=== PATIENT | female | born 1930 | race Two or more races ===

== ENCOUNTER 2016-07-09 14:31 | Inpatient (IN) | payer MEDICARE, OTHER ==
[~2016-07-09] VITALS: Ht 154.9 cm; Wt 87.1 kg
[~2016-07-09 14:31] MED LIST: CARVEDILOL12.5 MG ORAL; CEPHALEXIN500 MG ORAL; COREG12.5 MG ORAL; DIOVAN160 MG ORAL; FUROSEMIDE20 M1 ORAL; LACTULOSE10 GM/155 PO; LACTULOSE20 GM/301 ORAL; LYRICA25 MG ORAL; MIDODRINE HCL5 MG ORAL; Morphine Sulfate 2mg/ml Inj IVP ONE; NKM; PROTONIX40 MG ORAL; SIMVASTATIN20 MG ORAL; SPIRONOLACTONE25 MG ORAL; SPIRONOLACTONE50 MG ORAL; XIFAXAN550 MG ORAL
[2016-07-09 14:35] VITALS: BP 110/55
--- NOTE | 2016-07-09 14:44 | Emergency Room Report ---
History of Present Illness General Chief Complaint: Pain Source: Patient, Family Member, EMS Present Illness HPI The patient presents with 2 days of left leg pain. She says is constant and 7/ 10. It is burning pain. She denies having this before (though apparently, she was admitted for cellulitis recently). The patient has chronic liver disease and has swelling in her legs. Some mild shortness of breath and some cough. She denies any fevers. According to her daughter she had paracentesis done at [facility] yesterday. Hospitalized for several days with infection in leg and tx with antibiotics. Balance has been off. Fell few days ago and was too weak to get up. Not hit her head at that time. Ammonia has been elevated in past. Cough for few days. Non-productive. No dysuria. No diarrhea or melena. No vomiting or hematemesis. Nausea. Dizziness. Allergies: Coded Allergies: PENICILLINS (Unverified Allergy, Unknown, 07/09/16) Patient History Past Medical History: see triage record Social History: Denies: alcohol use, smoking Social History Narrative home Reviewed Nursing Documentation: PMH: Agreed, PSxH: Agreed Nursing Documentation-PMH Past Medical History: No History, Except For Hx Hypertension: Yes Hx Cancer: No Hx Gastrointestinal Problems: No Hx Neurological Problems: No Hx Neurologic Surgery: No Review of Systems All Other Systems: negative except mentioned in HPI Physical Exam Vital Signs Date Time Temp Pulse Resp B/P Pulse Ox O2 Delivery O2 Flow Rate FiO2 07/09/16 14:22 98.4 107 14 119/57 99 Room Air Sp02 EP Interpretation: reviewed, normal General Appearance: no apparent distress, GCS 15, Chronically Ill Head: normocephalic Eyes: bilateral eye PERRL, bilateral eye scleral icterus ENT: moist mucus membranes Neck: full range of motion, supple Respiratory: lungs clear, normal breath sounds Cardiovascular #1: regular rate, rhythm, edema - bilateral 2-3 + Cardiovascular #2: 2+ radial (R) Gastrointestinal: no mass, no guarding, no rebound, distended, other - fluid wave Musculoskeletal: back normal, normal range of motion, no calf tenderness, Ángel 's Sign negative, inflammation, swelling Neurologic: alert, oriented x3, motor strength/tone normal, DTRs symmetric, other - no asterixis Psychiatric: mood/affect normal - poor recent memory Skin: other - venous disease with some erythema L lower leg Medical Decision Making Diagnostic Impression: Primary Impression: Sepsis Qualified Codes: A41.9 - Sepsis, unspecified organism Additional Impressions: Cirrhosis Qualified Codes: K74.60 - Unspecified cirrhosis of liver Ascites Qualified Codes: R18.8 - Other ascites Cellulitis Qualified Codes: L03.116 - Cellulitis of left lower limb Coagulopathy Thrombocytopenia Hepatic encephalopathy ER Course Patient presents with fever with h/o cirrhosis and ascites, recent paracentesis and admission for cellulitis. Consider SBP, cellulitis, pneumonia, UTI amongst others. Emergent evaluation with labs, BC, lactate, CXR, ultrasound, venous dopplers. Treatment with antibiotics and gentle hydration. Some depressed mental state, but no asterixis - need to exclude encephalopathy, the fact she does not recall problems with leg suggests some cognitive dysfunction. Liver clinically compromised. Very complex patient. Elevated lactate. Need to give hydration, but total body fluid overloaded. VS stable (tachycardia). Antibiotics begun. Anemia. Admit tele Dr Edward. He examined the patient in the ED. Laboratory Tests Test 07/09/16 14:55 07/09/16 15:15 White Blood Count 5.4 K/UL (4.8-10.8) Red Blood Count 2.36 M/UL (4.20-5.40) L Hemoglobin 8.4 G/DL (12.0-16.0) L Hematocrit 26.8 % (37.0-47.0) L Mean Corpuscular Volume 113 FL (80-99) H Mean Corpuscular Hemoglobin 35.6 PG (27.0-31.0) H Mean Corpuscular Hemoglobin Concent 31.4 G/DL (32.0-36.0) L Red Cell Distribution Width 20.7 % (11.6-14.8) H Platelet Count 69 K/UL (150-450) L Mean Platelet Volume 11.1 FL (6.5-10.1) H Neutrophils (%) (Auto) % (45.0-75.0) Lymphocytes (%) (Auto) % (20.0-45.0) Monocytes (%) (Auto) % (1.0-10.0) Eosinophils (%) (Auto) % (0.0-3.0) Basophils (%) (Auto) % (0.0-2.0) Differential Total Cells Counted 100 Neutrophils % (Manual) 62 % (45-75) Lymphocytes % (Manual) 11 % (20-45) L Monocytes % (Manual) 20 % (1-10) H Eosinophils % (Manual) 5 % (0-3) H Basophils % (Manual) 2 % (0-2) Band Neutrophils 0 % (0-8) Platelet Estimate Decreased L Platelet Morphology Normal Polychromasia 2+ Hypochromasia 2+ Poikilocytosis 1+ Anisocytosis 3+ Macrocytosis 3+ Prothrombin Time 17.3 SEC (9.30-11.50) H Prothrombin Time INR 1.7 (0.9-1.1) H PTT 46 SEC (23-33) H Sodium Level 134 mEQ/L (135-145) L Potassium Level 4.8 mEQ/L (3.4-4.9) Chloride Level 97 mEQ/L (98-107) L Carbon Dioxide Level 20 mEQ/L (20-30) Anion Gap 17 (5-15) H Blood Urea Nitrogen 27 mg/dL (7-23) H Creatinine 1.1 mg/dL (0.5-0.9) H Estimate Glomerular Filtration Rate mL/min (>60) Glucose Level 133 mg/dL (74-106) H Lactic Acid Level 3.20 mmol/L (0.66-2.22) H Calcium Level 8.9 mg/dL (8.6-10.2) Total Bilirubin 5.3 mg/dL (0.0-1.2) H Direct Bilirubin 1.4 mg/dL (0.1-0.3) H Aspartate Amino Transferase (AST) 44 U/L (5-40) H Alanine Aminotransferase (ALT) 21 U/L (3-33) Alkaline Phosphatase 147 U/L (35-104) H Ammonia 66 umol/L (11-51) H Total Creatine Kinase 188 U/L (26-140) H Troponin I < 0.30 ng/mL (<=0.30) Pro-B-Type Natriuretic Peptide 613 pg/mL (0-450) H Total Protein 5.7 g/dL (6.6-8.7) L Albumin 3.8 g/dL (3.5-5.2) Globulin 1.9 g/dL Albumin/Globulin Ratio 2.0 (1.0-2.7) Urine Color Yellow Urine Appearance Clear Urine pH 5 (4.5-8.0) Urine Specific [place] 1.015 (1.005-1.035) Urine Protein Negative (NEGATIVE) Urine Glucose (UA) Negative (NEGATIVE) Urine Ketones Negative (NEGATIVE) Urine Occult Blood 1+ (NEGATIVE) H Urine Nitrite Negative (NEGATIVE) Urine Bilirubin Negative (NEGATIVE) Urine Urobilinogen Normal MG/DL (0.0-1.0) Urine Leukocyte Esterase 1+ (NEGATIVE) H Urine RBC 0-2 /HPF (0 - 2) Urine WBC 0 /HPF (0 - 2) Urine Squamous Epithelial Cells Few /LPF (NONE/OCC) Urine Bacteria Few /HPF (NONE) EKG Diagnostic Results Rate: tachycardiac ST Segments: no acute changes Rhythm Strip Diag. Results EP Interpretation: yes Rhythm: no PVC's, no ectopy, other - sinus tachycardia Chest X-Ray Diagnostic Results EP Interpretation: Yes Findings: no consolidation, no effusion, no pneumothorax, no acute cardiopulmonary disease, other - ascites Number of Views: 1 CT/MRI/US Diagnostic Results CT/MRI/US Diagnostic Results #1: Imaging Test Ordered: abd U/S Impression ascites and small liver CT/MRI/US Diagnostic Results #2: Imaging Test Ordered: DVT studies Impression no DVT Last Vital Signs Date Time Temp Pulse Resp B/P Pulse Ox O2 Delivery O2 Flow Rate FiO2 07/10/16 00:33 98.8 95 19 100/61 98 Room Air Status: improved Disposition: ADMITTED INPATIENT Condition: Serious Evan Lacy M.D. Jul 09, 2016 14:44
[2016-07-09 15:22] VITALS: BP 120/46
[2016-07-09 15:24] LABS: MEAN CORPUSCULAR HEMOGLOBIN 35.6 PG (27.0-31.0); MEAN CORPUSCULAR HGB CONC 31.4 G/DL (32.0-36.0); MEAN CORPUSCULAR VOLUME 113 FL (80-99); MEAN PLATELET VOLUME 11.1 FL (6.5-10.1); PLATELET COUNT 69 K/UL (150-450); RED BLOOD COUNT 2.36 M/UL (4.20-5.40); RED CELL DISTRIBUTION WIDTH 20.7 % (11.6-14.8); WHITE BLOOD COUNT 5.4 K/UL (4.8-10.8)
[2016-07-09 15:43] LABS: TROPONIN I < 0.30 ng/mL (<=0.30)
--- NOTE | 2016-07-09 15:43 | Diagnostic Imaging Report ---
Indication:Abdominal pain Technique: Grayscale and duplex Doppler imaging of the abdomen performed. Comparison: None Findings: The liver is heterogeneous and shows a coarsened echotexture with surface nodularity. There is moderate ascites. Portal vein is patent by Doppler examination. The spleen is borderline enlarged measuring between 12 and 13 cm. No abnormalities of either kidney identified. The gallbladder is not seen. CBD is 6 mm. There is no hydronephrosis. Impression: Chronic liver disease/cirrhosis. Ascites suggestive of portal hypertension. Borderline splenomegaly. Apparent cholecystectomy
[2016-07-09 15:46] LABS: ALANINE AMINOTRANSFERASE 21 U/L (3-33); ANION GAP 17 (5-15); ASPARTATE AMINO TRANSFERASE 44 U/L (5-40); CALCIUM 8.9 mg/dL (8.6-10.2); CARBON DIOXIDE 20 mEQ/L (20-30); CHLORIDE 97 mEQ/L (98-107); CREATININE 1.1 mg/dL (0.5-0.9); HEMOLYSIS 27; POTASSIUM 4.8 mEQ/L (3.4-4.9); SODIUM 134 mEQ/L (135-145); TOTAL PROTEIN 5.7 g/dL (6.6-8.7)
--- NOTE | 2016-07-09 15:47 | Diagnostic Imaging Report ---
Indication: Chest Pain Comparison: 07/23/15 A single view chest radiograph was obtained. Findings: No definite infiltrate or pulmonary vascular congestion identified. The heart is enlarged. The aorta is mildly enlarged consistent with atherosclerotic vascular disease. The bones are osteopenic. Impression: No acute disease
[2016-07-09 15:50] LABS: INR 1.7 (0.9-1.1); PROTHROMBIN TIME 17.3 SEC (9.30-11.50)
[2016-07-09 15:52] LABS: REFLEX LACTIC ACID YES OR NO YES
[2016-07-09 15:54] LABS: APPEARANCE,URINE CLEAR; KETONES,URINE NEGATIVE (NEGATIVE); LEUKOCYTE ESTERASE ,URINE 1+ (NEGATIVE); NITRITE,URINE NEGATIVE (NEGATIVE); PH,URINE 5 (4.5-8.0); PROTEIN,URINE NEGATIVE (NEGATIVE); UROBILINOGEN,URINE NORMAL MG/DL (0.0-1.0)
[2016-07-09] MEDS ORDERED: Vancomycin 1 GM in D5W 275 ML IVPB ONE (16:00)
[2016-07-09] MEDS ORDERED: metroNIDAZOLE 500mg 100 ML IVPB ONE (16:00)
[2016-07-09 16:07] LABS: BILIRUBIN,DIRECT 1.4 mg/dL (0.1-0.3)
[2016-07-09 16:07] LABS: RBC,URINE 0-2 /HPF (0 - 2); WBC,URINE 0 /HPF (0 - 2)
[2016-07-09 16:08] LABS: BACTERIA,URINE FEW /HPF; SQUAMOUS EPITHELIAL CELL,UR FEW /LPF (NONE/OCC)
[2016-07-09 16:23] LABS: BASOPHILS % (MANUAL) 2 % (0-2); EOSINOPHILS % (MANUAL) 5 % (0-3); LYMPHOCYTES % (MANUAL) 11 % (20-45); NEUTROPHILS % (MANUAL) 62 % (45-75); TOTAL CELLS COUNTED 100
[2016-07-09 16:24] LABS: ANISOCYTOSIS 3+; HYPOCHROMASIA 2+; MACROCYTES 3+; PLATELET MORPHOLOGY NORMAL; POIKILOCYTOSIS 1+; POLYCHROMASIA 2+
[2016-07-09 16:25] LABS: BAND NEUTROPHILS % (MANUAL) 0 % (0-8); PLATELET ESTIMATE DECREASED
[2016-07-09] MEDS ORDERED: Phytonadione 10 mg/mL 1ml amp ONE (17:10)
[2016-07-09] MEDS ORDERED: Phytonadione 10 mg/mL 1ml amp SUBQ STA (17:27)
[2016-07-09] MEDS ORDERED: Vancomycin 1gm inj IVPB ONE (17:39)
[2016-07-09 18:54] VITALS: BP 103/56
--- NOTE | 2016-07-09 22:30 | History and Physical Report ---
DATE OF ADMISSION: 07/09/2016 CHIEF COMPLAINT AND REASON FOR HOSPITALIZATION: Tachycardia, leg pain, cellulitis, and history of cirrhosis. 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 She had a paracentesis, but no evidence of infection. She has chronic ascites and hepatic encephalopathy. Mental status has been preserved. Apparently, the family called the paramedics because of leg pain and she was tachycardic and clinically septic, seen in the ER. Given fluids, resuscitation, and antibiotics. ALLERGIES: None known. MEDICATIONS: At home include carvedilol, Lasix, lactulose, midodrine, Protonix, Lyrica, rifaximin, Zocor, spironolactone, and lactulose. HABITS: She is a nondrinker and nonsmoker. No use of illicit drugs. SYSTEM REVIEW: HEENT: Head, eyes, ears, nose, and throat, the vision and hearing are well preserved. PULMONARY: No asthma or TB. CARDIAC: History of leg edema, but no definite congestive heart failure. History of hypertension. GASTROINTESTINAL: No gastrointestinal bleeding or ulcers as far as I know, but she has been on Protonix. GENITOURINARY: Denies dysuria. NEUROLOGIC: History of hepatic encephalopathy. No strokes. MUSCULOSKELETAL: History of prior surgeries, bilateral total knee surgeries. PHYSICAL EXAMINATION: GENERAL: The patient is seen in the emergency department. She is alert lady, in mild distress. VITAL SIGNS: Temperature 98.4, pulse 106, respirations 17, blood pressure 120/46, and pulse oximetry 94% on room air. HEENT: Head, eyes, ears, nose, and throat, sclerae are nonicteric. Ocular motions intact in all directions. Oral mucosa moist. NECK: No adenopathy or thyroid enlargement. LUNGS: Clear. HEART: Regular rhythm and tachycardic. No murmur. ABDOMEN: Shows soft ascites. I am unable to feel liver or spleen . EXTREMITIES: Show 1+ edema. There is hyperpigmented legs and erythema and cellulitis of both legs. There is clean total knee incisions. PERTINENT LABORATORIES: White count 5.4, hemoglobin 8.4, hematocrit 26.8, and platelets 113,000. Sodium 134, potassium 4.8, chloride 97, CO2 20, BUN 27, creatinine 1.1, and glucose 133. Lactic acid is 3.2. Bilirubin is 1.4. IMPRESSION: 1. Systemic inflammatory response syndrome with tachycardia and possible early sepsis. 2. Cellulitis of the legs. 3. Cirrhosis. 4. History of hepatic encephalopathy. 5. Ascites. 6. Anemia. 7. Thrombocytopenia. 8. History of hypertension. 9. History of hyperlipidemia. PLAN: The patient will be placed on vancomycin and Gram-negative coverage pending cultures. We will watch her closely in view of her underlying comorbidities. Awais Edward M.D. DR: [place] JOB#: [id number] CC:
[2016-07-10 00:33] VITALS: BP 100/61
[2016-07-10 04:19] VITALS: BP 107/45
[2016-07-10 08:36] VITALS: BP 92/49
[2016-07-10 08:36] LABS: MEAN CORPUSCULAR HEMOGLOBIN 35.9 PG (27.0-31.0); MEAN CORPUSCULAR HGB CONC 31.7 G/DL (32.0-36.0); MEAN CORPUSCULAR VOLUME 113 FL (80-99); MEAN PLATELET VOLUME 7.1 FL (6.5-10.1); PLATELET COUNT 46 K/UL (150-450); RED BLOOD COUNT 2.02 M/UL (4.20-5.40); RED CELL DISTRIBUTION WIDTH 19.9 % (11.6-14.8); WHITE BLOOD COUNT 4.6 K/UL (4.8-10.8)
[2016-07-10 08:49] LABS: INR 1.7 (0.9-1.1); PROTHROMBIN TIME 18.1 SEC (9.30-11.50)
[2016-07-10] MEDS ORDERED: Carvedilol 12.5mg tab ORAL SCH ×2 (09:00→21:00)
[2016-07-10] MEDS ORDERED: Spironolactone 25mg tab ORAL SCH (09:00)
[2016-07-10] MEDS: Lactulose 10gm/15ml UDC ORAL SCH ×3 (09:00→18:42)
[2016-07-10] MEDS ORDERED: Heparin 5000 units/ml inj SUBQ SCH (09:00)
[2016-07-10] MEDS ORDERED: Furosemide 40mg tab ORAL SCH (09:00)
[2016-07-10 09:12] LABS: ALANINE AMINOTRANSFERASE 18 U/L (3-33); ALBUMIN/GLOBULIN RATIO 1.5 (1.0-2.7); ANION GAP 12 (5-15); ASPARTATE AMINO TRANSFERASE 31 U/L (5-40); CALCIUM 8.1 mg/dL (8.6-10.2); CARBON DIOXIDE 23 mEQ/L (20-30); CHLORIDE 102 mEQ/L (98-107); CREATININE 1.1 mg/dL (0.5-0.9); HEMOLYSIS 4; POTASSIUM 5.2 mEQ/L (3.4-4.9); SODIUM 137 mEQ/L (135-145)
[2016-07-10 09:27] LABS: BILIRUBIN,DIRECT 1.3 mg/dL (0.1-0.3)
[2016-07-10] MEDS: Triamcinolone 0.1% 15gm Cr TOPIC SCH ×2 (09:44→18:43)
[2016-07-10] MEDS: Rifaximin 550mg tab ORAL SCH ×2 (09:45→21:46)
[2016-07-10 10:28] LABS: ANISOCYTOSIS 1+; BAND NEUTROPHILS % (MANUAL) 0 % (0-8); BASOPHILS % (MANUAL) 0 % (0-2); EOSINOPHILS % (MANUAL) 1 % (0-3); HYPOCHROMASIA 1+; LYMPHOCYTES % (MANUAL) 23 % (20-45); MACROCYTES 1+; NEUTROPHILS % (MANUAL) 65 % (45-75); PLATELET ESTIMATE DECREASED; PLATELET MORPHOLOGY NORMAL; TOTAL CELLS COUNTED 100
[2016-07-10 11:42] VITALS: BP 104/44
--- NOTE | 2016-07-10 13:50 | Cardiology Report ---
APPROVED REPORT EKG Measurement Heart [id number] Sinus tachycardia Anteroseptal infarct, age undetermined Abnormal ECG
[2016-07-10 16:00] VITALS: BP 80/30
[2016-07-10] MEDS ORDERED: Vancomycin 750mg/D5W 275ml IVPB SCH ×2 (18:00)
[2016-07-10 20:00] VITALS: BP 88/47
--- NOTE | 2016-07-10 20:22 | General Progress Note ---
Assessment/Plan Problem List: (1) Anemia ICD Codes: D64.9 - Anemia, unspecified SNOMED: 630279210 (2) Cirrhosis ICD Codes: K74.60 - Unspecified cirrhosis of liver SNOMED: 10288547 (3) Thrombocytopenia ICD Codes: D69.6 - Thrombocytopenia SNOMED: 494903567 (4) Ascites ICD Codes: R18.8 - Other ascites SNOMED: 620442794 (5) Cellulitis ICD Codes: L03.90 - Cellulitis, unspecified SNOMED: 647247813 Assessment/Plan patient and daughter consent to transfuse, continue vanco for cellulitis, lasix for fluid overload Subjective Constitutional: Reports: weakness HEENT: Reports: no symptoms Cardiovascular: Reports: no symptoms Respiratory: Reports: no symptoms Gastrointestinal/Abdominal: Reports: no symptoms Genitourinary: Reports: no symptoms Neurologic/Psychiatric: Reports: no symptoms Endocrine: Reports: no symptoms Allergies: Coded Allergies: PENICILLINS (Unverified Allergy, Unknown, 07/09/16) Subjective leg pain and difficult to walk Objective Last 24 Hour Vital Signs Date Time Temp Pulse Resp B/P Pulse Ox O2 Delivery O2 Flow Rate FiO2 07/10/16 20:00 97.6 63 21 88/47 97 Nasal Cannula 2.0 07/10/16 16:00 97.8 73 21 80/30 99 Nasal Cannula 2.0 07/10/16 12:00 75 07/10/16 11:42 97.3 84 20 104/44 95 Room Air 07/10/16 09:45 90 92/49 07/10/16 08:36 97.9 90 18 92/49 95 Room Air 07/10/16 08:00 89 07/10/16 04:19 98.4 91 18 107/45 93 Room Air 07/10/16 04:00 91 07/10/16 00:33 98.8 95 19 100/61 98 Room Air 07/10/16 00:00 94 Intake and Output 07/09/16 07/10/16 18:59 06:59 Output Total 500 ml 1150 ml Balance -500 ml -1150 ml Output Urine Total 500 ml 1150 ml # Voids 1 Laboratory Tests 07/10/16 07:40: White Blood Count 4.6L, Red Blood Count 2.02L, Hemoglobin 7.2L, Hematocrit 22.8L , Mean Corpuscular Volume 113H, Mean Corpuscular Hemoglobin 35.9H, Mean Corpuscular Hemoglobin Concent 31.7L, Red Cell Distribution Width 19.9H, Platelet Count 46L, Mean Platelet Volume 7.1, Neutrophils (%) (Auto) , Lymphocytes (%) (Auto) , Monocytes (%) (Auto) , Eosinophils (%) (Auto) , Basophils (%) (Auto) , Differential Total Cells Counted 100, Neutrophils % ( Manual) 65, Lymphocytes % (Manual) 23, Monocytes % (Manual) 11H, Eosinophils % ( Manual) 1, Basophils % (Manual) 0, Band Neutrophils 0, Platelet Estimate DecreasedL, Platelet Morphology Normal, Hypochromasia 1+, Anisocytosis 1+, Macrocytosis 1+, Prothrombin Time 18.1H, Prothromb Time International Ratio 1.7H , Activated Partial Thromboplast Time 56H, Sodium Level 137, Potassium Level 5.2H, Chloride Level 102, Carbon Dioxide Level 23, Anion Gap 12, Blood Urea Nitrogen 27H, Creatinine 1.1H, Estimat Glomerular Filtration Rate , Glucose Level 82, Calcium Level 8.1L, Total Bilirubin 5.4H, Direct Bilirubin 1.3H, Aspartate Amino Transf (AST/SGOT) 31, Alanine Aminotransferase (ALT/SGPT) 18, Alkaline Phosphatase 119H, Ammonia 107H, Total Protein 5.0L, Albumin 3.0L, Globulin 2.0, Albumin/Globulin Ratio 1.5 Height (Feet): 5 Height (Inches): 1.00 Weight (Pounds): 192 General Appearance: no apparent distress, obese EENT: normal ENT inspection Neck: normal alignment Cardiovascular: normal rate Respiratory/Chest: lungs clear Abdomen: non tender, other - soft ascites Edema: moderate edema 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
[2016-07-11] VITALS: BP 85/42
[2016-07-11 04:00] VITALS: BP 84/40
[2016-07-11 07:04] LABS: MEAN CORPUSCULAR HEMOGLOBIN 34.3 PG (27.0-31.0); MEAN CORPUSCULAR HGB CONC 32.4 G/DL (32.0-36.0); MEAN CORPUSCULAR VOLUME 106 FL (80-99); MEAN PLATELET VOLUME 11.3 FL (6.5-10.1); PLATELET COUNT 43 K/UL (150-450); RED BLOOD COUNT 2.46 M/UL (4.20-5.40); RED CELL DISTRIBUTION WIDTH 22.4 % (11.6-14.8); WHITE BLOOD COUNT 4.2 K/UL (4.8-10.8)
[2016-07-11 07:14] LABS: ANION GAP 14 (5-15); CARBON DIOXIDE 21 mEQ/L (20-30); CHLORIDE 100 mEQ/L (98-107); CREATININE 1.6 mg/dL (0.5-0.9); HEMOLYSIS 4; POTASSIUM 5.4 mEQ/L (3.4-4.9); SODIUM 135 mEQ/L (135-145)
[2016-07-11 08:00] VITALS: BP 94/40
[2016-07-11] MEDS: Carvedilol 12.5mg tab ORAL SCH ×2 (09:00→20:45)
[2016-07-11] MEDS ORDERED: Furosemide 40mg tab ORAL SCH (09:00)
[2016-07-11] MEDS ORDERED: Spironolactone 25mg tab ORAL SCH (09:00)
[2016-07-11] MEDS: Rifaximin 550mg tab ORAL SCH ×2 (09:26→20:51)
[2016-07-11] MEDS: Lactulose 10gm/15ml UDC ORAL SCH ×3 (09:27→18:52)
[2016-07-11] MEDS: Triamcinolone 0.1% 15gm Cr TOPIC SCH ×2 (09:30→18:00)
[2016-07-11] MEDS ORDERED: NS 275ml ONE (10:22)
[2016-07-11 10:35] LABS: ANISOCYTOSIS 2+; BAND NEUTROPHILS % (MANUAL) 0 % (0-8); BASOPHILS % (MANUAL) 0 % (0-2); EOSINOPHILS % (MANUAL) 2 % (0-3); LYMPHOCYTES % (MANUAL) 30 % (20-45); NEUTROPHILS % (MANUAL) 67 % (45-75); PLATELET ESTIMATE DECREASED; PLATELET MORPHOLOGY NORMAL; TOTAL CELLS COUNTED 100
[2016-07-11 10:36] LABS: HYPOCHROMASIA 2+; MACROCYTES 2+; OVALOCYTES 1+
[2016-07-11 12:00] VITALS: BP 86/30
--- NOTE | 2016-07-11 15:30 | General Progress Note ---
Assessment/Plan Problem List: (1) Anemia ICD Codes: D64.9 - Anemia, unspecified SNOMED: 253980237 Qualifiers: (2) Cirrhosis ICD Codes: K74.60 - Unspecified cirrhosis of liver SNOMED: 04420570 Qualifiers: Qualified Codes: K74.69 - Other cirrhosis of liver (3) Thrombocytopenia ICD Codes: D69.6 - Thrombocytopenia SNOMED: 150389891 (4) Ascites ICD Codes: R18.8 - Other ascites SNOMED: 347467618 Qualifiers: Qualified Codes: R18.8 - Other ascites (5) Cellulitis ICD Codes: L03.90 - Cellulitis, unspecified SNOMED: 400857609 Qualifiers: Qualified Codes: L03.116 - Cellulitis of left lower limb Assessment/Plan patient and daughter consent to transfuse, done, continue vanco for cellulitis, lasix for fluid overload 3/3 increase bun and creat and K 3/4 stop lasix and spironolactone, PT gait train Subjective Constitutional: Reports: weakness Cardiovascular: Reports: no symptoms Genitourinary: Reports: no symptoms Neurologic/Psychiatric: Reports: pre-existing deficit Endocrine: Reports: no symptoms Hematologic/Lymphatic: Reports: anemia Allergies: Coded Allergies: PENICILLINS (Unverified Allergy, Unknown, 07/09/16) Subjective leg pain and difficult to walk Objective Last 24 Hour Vital Signs Date Time Temp Pulse Resp B/P Pulse Ox O2 Delivery O2 Flow Rate FiO2 07/11/16 12:00 97.7 72 19 86/30 97 07/11/16 09:00 62 94/40 07/11/16 08:00 97.3 18 94/40 97 Nasal Cannula 2.0 07/11/16 04:00 97.3 62 18 84/40 95 Nasal Cannula 2.0 07/11/16 00:00 97.7 61 20 85/42 99 Nasal Cannula 2.0 07/10/16 21:00 63 88/47 07/10/16 20:00 97.6 63 21 88/47 97 Nasal Cannula 2.0 07/10/16 16:00 65 07/10/16 16:00 97.8 73 21 80/30 99 Nasal Cannula 2.0 Intake and Output 07/10/16 07/11/16 19:00 07:00 Intake Total 120 ml Output Total 300 ml Balance -180 ml Intake Oral 120 ml Output Urine Total 300 ml # Voids 1 Laboratory Tests 07/11/16 04:45: White Blood Count 4.2L, Red Blood Count 2.46L, Hemoglobin 8.4L, Hematocrit 26.0L , Mean Corpuscular Volume 106H, Mean Corpuscular Hemoglobin 34.3H, Mean Corpuscular Hemoglobin Concent 32.4, Red Cell Distribution Width 22.4H, Platelet Count 43L, Mean Platelet Volume 11.3H, Neutrophils (%) (Auto) , Lymphocytes (%) (Auto) , Monocytes (%) (Auto) , Eosinophils (%) (Auto) , Basophils (%) (Auto) , Differential Total Cells Counted 100, Neutrophils % ( Manual) 67, Lymphocytes % (Manual) 30, Monocytes % (Manual) 1, Eosinophils % ( Manual) 2, Basophils % (Manual) 0, Band Neutrophils 0, Platelet Estimate DecreasedL, Platelet Morphology Normal, Hypochromasia 2+, Anisocytosis 2+, Macrocytosis 2+, Ovalocytes 1+, Sodium Level 135, Potassium Level 5.4H, Chloride Level 100, Carbon Dioxide Level 21, Anion Gap 14, Blood Urea Nitrogen 35H, Creatinine 1.6H, Estimat Glomerular Filtration Rate , Glucose Level 88, Calcium Level 8.0L Height (Feet): 5 Height (Inches): 1.00 Weight (Pounds): 192 General Appearance: no apparent distress, obese EENT: PERRL/EOMI Neck: normal alignment Cardiovascular: normal rate, regular rhythm Respiratory/Chest: lungs clear Abdomen: non tender, soft Edema: moderate edema Neurologic: telehealth case manager II-XII grossly normal Skin: other - cellulitis legs ROBERTA NORWOOD Jul 11, 2016 15:30
[2016-07-11 16:00] VITALS: BP 83/31
[2016-07-11] MEDS ORDERED: Vancomycin 750 MG in D5W 275 ML IVPB SCH (18:00)
[2016-07-11 20:00] VITALS: BP 88/42
[2016-07-12] VITALS: BP 81/44
[2016-07-12 04:00] VITALS: BP 88/35
[2016-07-12 08:03] LABS: MEAN CORPUSCULAR HEMOGLOBIN 34.9 PG (27.0-31.0); MEAN CORPUSCULAR HGB CONC 32.4 G/DL (32.0-36.0); MEAN CORPUSCULAR VOLUME 108 FL (80-99); MEAN PLATELET VOLUME 9.9 FL (6.5-10.1); PLATELET COUNT 40 K/UL (150-450); RED CELL DISTRIBUTION WIDTH 21.8 % (11.6-14.8); WHITE BLOOD COUNT 5.2 K/UL (4.8-10.8)
[2016-07-12 08:07] LABS: ANION GAP 11 (5-15); CARBON DIOXIDE 22 mEQ/L (20-30); CHLORIDE 102 mEQ/L (98-107); CREATININE 1.6 mg/dL (0.5-0.9); HEMOLYSIS 4; POTASSIUM 5.5 mEQ/L (3.4-4.9); SODIUM 135 mEQ/L (135-145)
[2016-07-12 08:15] VITALS: BP 92/45
[2016-07-12] MEDS: Carvedilol 12.5mg tab ORAL SCH ×2 (09:00→21:00)
[2016-07-12] MEDS: Triamcinolone 0.1% 15gm Cr TOPIC SCH ×2 (10:23→18:30)
[2016-07-12] MEDS: Lactulose 10gm/15ml UDC ORAL SCH ×3 (10:23→18:30)
[2016-07-12] MEDS: Rifaximin 550mg tab ORAL SCH ×2 (10:23→22:10)
[2016-07-12 10:56] LABS: ANISOCYTOSIS 3+; BAND NEUTROPHILS % (MANUAL) 0 % (0-8); BASOPHILS % (MANUAL) 1 % (0-2); EOSINOPHILS % (MANUAL) 6 % (0-3); HYPOCHROMASIA 2+; LYMPHOCYTES % (MANUAL) 10 % (20-45); MACROCYTES 1+; NEUTROPHILS % (MANUAL) 67 % (45-75); PLATELET ESTIMATE DECREASED; PLATELET MORPHOLOGY NORMAL; TOTAL CELLS COUNTED 100
[2016-07-12] MEDS ORDERED: Tubing IV Secondary IV ONE (11:05)
[2016-07-12] MEDS ORDERED: NS 275ml ONE (11:05)
[2016-07-12 12:15] VITALS: BP 106/67
--- NOTE | 2016-07-12 13:37 | General Progress Note ---
Assessment/Plan Assessment/Plan 1) Analilia 2) Cirrhosis of liver 3) Satsis dermatitis 4) Fluid overload Plan: Will give Bumex 2 mg IV Check vanco level Subjective Allergies: Coded Allergies: PENICILLINS (Unverified Allergy, Unknown, 07/09/16) All Systems: reviewed and negative except above Subjective She is more sob, still on O2, no c/p, creat is 1.6, K is 5.5 Objective Last 24 Hour Vital Signs Date Time Temp Pulse Resp B/P Pulse Ox O2 Delivery O2 Flow Rate FiO2 07/12/16 12:15 97.9 66 21 106/67 95 Nasal Cannula 2.0 07/12/16 09:00 69 92/45 07/12/16 08:15 97.7 69 20 92/45 96 Nasal Cannula 2.0 07/12/16 04:00 97.9 70 20 88/35 98 Nasal Cannula 2.0 07/12/16 00:00 97.7 67 22 81/44 97 Nasal Cannula 2.0 07/11/16 20:00 98.1 67 22 88/42 96 Nasal Cannula 2.0 07/11/16 16:00 97.9 64 19 83/31 95 Nasal Cannula 2.0 Intake and Output 07/11/16 07/12/16 19:00 07:00 Intake Total 400 ml 50 ml Balance 400 ml 50 ml Intake Oral 400 ml 50 ml # Voids 1 # Bowel Movements 2 Laboratory Tests 07/12/16 05:40: White Blood Count 5.2, Red Blood Count 2.60L, Hemoglobin 9.1L, Hematocrit 28.1L , Mean Corpuscular Volume 108H, Mean Corpuscular Hemoglobin 34.9H, Mean Corpuscular Hemoglobin Concent 32.4, Red Cell Distribution Width 21.8H, Platelet Count 40L, Mean Platelet Volume 9.9, Neutrophils (%) (Auto) , Lymphocytes (%) (Auto) , Monocytes (%) (Auto) , Eosinophils (%) (Auto) , Basophils (%) (Auto) , Differential Total Cells Counted 100, Neutrophils % ( Manual) 67, Lymphocytes % (Manual) 10L, Monocytes % (Manual) 16H, Eosinophils % (Manual) 6H, Basophils % (Manual) 1, Band Neutrophils 0, Platelet Estimate DecreasedL, Platelet Morphology Normal, Hypochromasia 2+, Anisocytosis 3+, Macrocytosis 1+, Sodium Level 135, Potassium Level 5.5H, Chloride Level 102, Carbon Dioxide Level 22, Anion Gap 11, Blood Urea Nitrogen 37H, Creatinine 1.6H , Estimat Glomerular Filtration Rate , Glucose Level 90, Calcium Level 8.0L Height (Feet): 5 Height (Inches): 1.00 Weight (Pounds): 192 General Appearance: WD/WN, no apparent distress EENT: PERRL/EOMI Neck: non-tender Cardiovascular: normal rate, regular rhythm, JVD - high Respiratory/Chest: crackles/rales Abdomen: normal bowel sounds, non tender Edema: moderate edema Skin: other - discolored RAMA GRIFFIN Jul 12, 2016 13:37
[2016-07-12] MEDS ORDERED: Bumetanide 2.5mg/10ml Inj IVP ONE (14:00)
[2016-07-12 16:03] VITALS: BP 97/51
[2016-07-12] MEDS: Vancomycin 1.25 GM in D5W 275 ML IVPB SCH (18:31)
[2016-07-12 20:00] VITALS: BP 92/41
[2016-07-13] VITALS: BP 101/41
[2016-07-13 04:00] VITALS: BP 99/50
[2016-07-13 08:05] LABS: OTHERS PATHOLOGIST COMMENT
[2016-07-13 08:08] VITALS: BP 100/52
[2016-07-13] MEDS: Lactulose 10gm/15ml UDC ORAL SCH ×3 (09:00→18:24)
[2016-07-13] MEDS: Carvedilol 12.5mg tab ORAL SCH ×2 (09:00→21:00)
[2016-07-13] MEDS: Rifaximin 550mg tab ORAL SCH ×2 (09:29→21:14)
[2016-07-13] MEDS: Triamcinolone 0.1% 15gm Cr TOPIC SCH ×2 (09:36→18:23)
[2016-07-13 11:24] VITALS: BP 97/50
--- NOTE | 2016-07-13 14:16 | General Progress Note ---
Assessment/Plan Assessment/Plan 1) Analilia 2) Cirrhosis of liver 3) Satsis dermatitis 4) Fluid overload Plan: labs tomorrow Lactulose 20 gram po TID Get Physical RX Subjective Allergies: Coded Allergies: PENICILLINS (Unverified Allergy, Unknown, 07/09/16) Subjective She is less sob, she had good diuresis yesterday, no c/p, no labs, vanco level was 11.4, some vomiting today Objective Last 24 Hour Vital Signs Date Time Temp Pulse Resp B/P Pulse Ox O2 Delivery O2 Flow Rate FiO2 07/13/16 11:24 97.6 57 20 97/50 99 Nasal Cannula 2.0 07/13/16 09:00 62 100/52 07/13/16 08:08 97.9 62 20 100/52 95 Nasal Cannula 2.0 07/13/16 04:00 97.7 65 20 99/50 97 Nasal Cannula 2.0 07/13/16 00:00 97.0 97 20 101/41 98 Nasal Cannula 2.0 07/13/16 00:00 97.0 67 20 101/41 98 Nasal Cannula 2.0 07/12/16 21:00 69 92/41 07/12/16 20:00 97.5 69 20 92/41 92 Room Air 2.0 07/12/16 16:03 97.6 65 15 97/51 97 Room Air Intake and Output 07/12/16 07/13/16 19:00 07:00 Intake Total 780 ml 395 ml Balance 780 ml 395 ml Intake Oral 780 ml 120 ml IV Total 275 ml # Voids 2 5 Laboratory Tests 07/12/16 14:45: Vancomycin Level Trough 11.4 Height (Feet): 5 Height (Inches): 1.00 Weight (Pounds): 192 General Appearance: WD/WN, no apparent distress EENT: PERRL/EOMI Neck: non-tender Cardiovascular: normal peripheral pulses, normal rate, JVD - high Respiratory/Chest: chest wall non-tender, lungs clear Abdomen: normal bowel sounds, non tender Edema: moderate edema Neurologic: tour leader II-XII grossly normal RAMA GRIFFIN Jul 13, 2016 14:16
[2016-07-13 16:00] VITALS: BP 96/35
[2016-07-13] MEDS: Vancomycin 1.25 GM in D5W 275 ML IVPB SCH (18:24)
[2016-07-13 19:00] VITALS: BP 109/56
[2016-07-14] VITALS: BP 83/49
[2016-07-14 04:00] VITALS: BP 110/40
[2016-07-14 07:10] LABS: ANION GAP 12 (5-15); CALCIUM 8.5 mg/dL (8.6-10.2); CARBON DIOXIDE 25 mEQ/L (20-30); CHLORIDE 100 mEQ/L (98-107); CREATININE 1.2 mg/dL (0.5-0.9); HEMOLYSIS 5; POTASSIUM 4.9 mEQ/L (3.4-4.9); SODIUM 137 mEQ/L (135-145)
[2016-07-14 07:27] LABS: MEAN CORPUSCULAR HEMOGLOBIN 34.9 PG (27.0-31.0); MEAN CORPUSCULAR HGB CONC 32.5 G/DL (32.0-36.0); MEAN CORPUSCULAR VOLUME 107 FL (80-99); MEAN PLATELET VOLUME 7.7 FL (6.5-10.1); PLATELET COUNT 45 K/UL (150-450); RED BLOOD COUNT 2.96 M/UL (4.20-5.40); RED CELL DISTRIBUTION WIDTH 21.1 % (11.6-14.8); WHITE BLOOD COUNT 5.6 K/UL (4.8-10.8)
[2016-07-14] MEDS: Lactulose 10gm/15ml UDC ORAL SCH ×2 (08:14→13:56)
[2016-07-14] MEDS: Carvedilol 12.5mg tab ORAL SCH (08:16)
[2016-07-14] MEDS: Rifaximin 550mg tab ORAL SCH (08:16)
[2016-07-14 08:21] VITALS: BP 93/41
[2016-07-14 09:08] LABS: BAND NEUTROPHILS % (MANUAL) 0 % (0-8); BASOPHILS % (MANUAL) 1 % (0-2); EOSINOPHILS % (MANUAL) 3 % (0-3); LYMPHOCYTES % (MANUAL) 13 % (20-45); NEUTROPHILS % (MANUAL) 73 % (45-75); PLATELET ESTIMATE DECREASED; PLATELET MORPHOLOGY NORMAL; TOTAL CELLS COUNTED 100
[2016-07-14 09:09] LABS: ANISOCYTOSIS 3+; HYPOCHROMASIA 1+; MACROCYTES 1+
[2016-07-14] MEDS: Triamcinolone 0.1% 15gm Cr TOPIC SCH (11:27)
[2016-07-14 12:00] VITALS: BP 95/47
--- NOTE | 2016-07-14 12:05 | Diagnostic Imaging Report ---
APPROVED REPORT CPT Code: 08638 Present Symptoms Lower Extremity Edema: Bilateral Comments: Technically difficult study due to edema BILATERAL: Imaging reveals a patent deep venous system bilaterally. There is no evidence of thrombus within the femoral, popliteal or tibial segments. The greater saphenous veins are also within normal limits. Doppler indicates normal spontaneous flow within these segments.
--- NOTE | 2016-07-14 14:56 | General Progress Note ---
Assessment/Plan Assessment/Plan 1) Analilia improved 2) Cirrhosis of liver 3) Satsis dermatitis + cellulitis 4) Fluid overload Plan: Will discharge home today Keflex 500 mg po bid x 7 more day #[id number] Subjective Allergies: Coded Allergies: PENICILLINS (Unverified Allergy, Unknown, 07/09/16) Subjective She is doing much better, no c/p or sob, the leg erythema is better, creat is down to 1.2 Objective Last 24 Hour Vital Signs Date Time Temp Pulse Resp B/P Pulse Ox O2 Delivery O2 Flow Rate FiO2 07/14/16 12:00 97.7 63 18 95/47 97 Nasal Cannula 2.0 07/14/16 08:21 98.2 68 15 93/41 96 Nasal Cannula 07/14/16 08:16 69 93/41 07/14/16 04:00 97.8 66 20 110/40 96 Nasal Cannula 2.0 07/14/16 00:00 97.7 60 20 83/49 94 Room Air 07/13/16 19:00 96.8 64 20 109/56 100 Nasal Cannula 2.0 07/13/16 16:00 96.8 58 20 96/35 99 Nasal Cannula 2.0 Intake and Output 07/13/16 07/14/16 19:00 07:00 Intake Total 400 ml 515 ml Output Total 170 ml Balance 230 ml 515 ml Intake Oral 400 ml 240 ml IV Total 275 ml Output Urine Total 120 ml Emesis 50 ml # Voids 2 4 # Bowel Movements 2 Laboratory Tests 07/14/16 06:05: White Blood Count 5.6, Red Blood Count 2.96L, Hemoglobin 10.4L, Hematocrit 31.8L , Mean Corpuscular Volume 107H, Mean Corpuscular Hemoglobin 34.9H, Mean Corpuscular Hemoglobin Concent 32.5, Red Cell Distribution Width 21.1H, Platelet Count 45L, Mean Platelet Volume 7.7, Neutrophils (%) (Auto) , Lymphocytes (%) (Auto) , Monocytes (%) (Auto) , Eosinophils (%) (Auto) , Basophils (%) (Auto) , Differential Total Cells Counted 100, Neutrophils % ( Manual) 73, Lymphocytes % (Manual) 13L, Monocytes % (Manual) 10, Eosinophils % ( Manual) 3, Basophils % (Manual) 1, Band Neutrophils 0, Platelet Estimate DecreasedL, Platelet Morphology Normal, Hypochromasia 1+, Anisocytosis 3+, Macrocytosis 1+, Sodium Level 137, Potassium Level 4.9, Chloride Level 100, Carbon Dioxide Level 25, Anion Gap 12, Blood Urea Nitrogen 34H, Creatinine 1.2H , Estimat Glomerular Filtration Rate , Glucose Level 88, Calcium Level 8.5L Height (Feet): 5 Height (Inches): 1.00 Weight (Pounds): 192 General Appearance: WD/WN, no apparent distress EENT: PERRL/EOMI Neck: non-tender, normal alignment Cardiovascular: normal rate, regular rhythm, JVD - nl Respiratory/Chest: lungs clear, normal breath sounds Abdomen: normal bowel sounds, non tender Extremities: normal range of motion, non-tender Edema: mild edema Neurologic: side sawyer II-XII grossly normal, no motor/sensory deficits RAMA GRIFFIN Jul 14, 2016 14:56
[2016-07-14] MEDS ORDERED: CEPHALEXIN500 MG ORAL (16:30)
[2016-07-14] MEDS ORDERED: NS 275ml ONE (18:25)
[2016-07-14] MEDS ORDERED: Tubing IV Secondary IV ONE (18:25)
[2016-07-14] MEDS ORDERED: D5NS 1000ml IV ONE (18:25)
[2016-07-14] MEDS ORDERED: Vancomycin 1 GM in D5W 275 ML IVPB SCH (19:00)
--- NOTE | 2016-07-15 05:38 | Discharge Summary ---
DATE OF ADMISSION: 07/09/2016 DATE OF DISCHARGE: 07/14/2016 DISCHARGE DIAGNOSES: 1. Acute kidney injury, which has resolved. 2. Evidence of left lower extremity cellulitis with early sepsis. 3. Cirrhosis of the liver. 4. Underlying chronic kidney disease. HISTORY AND PHYSICAL AND HOSPITAL COURSE: For details please refer to the History and Physical as well as the notes dictated in the chart. This is a very pleasant, 86-year-old, female, who has a known history of cirrhosis of the liver, has had previous hepatic encephalopathy and previous ascites, who has presented with some systemic inflammatory response syndrome with tachycardia and possible early sepsis. She was found to have cellulitis of the lower extremities and was admitted subsequently has been put on vancomycin and gram-negative coverage. Blood cultures has been negative. During the course of hospitalization, her serum creatinine came up from 1.1 to 1.7 mg/dL. She was found to be somewhat volume overloaded. She was diuresed and then eventually her serum creatinine came down to about 1.2 mg/dL on the day of discharge. She is going to be discharged home on stable condition with giving Keflex 500 mg p.o. t.i.d. x7 more days and follow up will be with , who is her primary care physician as outpatient. Erasmo Stout M.D. DR: FRANSISCO JOB#: [id number] CC:
== END 2016-07-14 18:26 | disposition home or self-care (01) | DRG 872 ==
LOC: ENRESERVDT → ENRESERVTM → EDBD 14:31 → EMR 14:55 → 2E 15:58 → EDBEDREQ 18:26 → 4E 07-11 07:48
PROC: 30233N1 Transfusion of Nonautologous Red Blood Cells into Peripheral Vein, Percutaneous Approach (ICD-10-PCS; principal; 2016-07-10)
DX: A41.9 Sepsis, unspecified organism (principal); N17.9 Acute kidney failure, unspecified; R18.8 Other ascites; D69.6 Thrombocytopenia, unspecified; E87.70 Fluid overload, unspecified; K74.69 Other cirrhosis of liver; L03.116 Cellulitis of left lower limb; K72.90 Hepatic failure, unspecified without coma; I87.2 Venous insufficiency (chronic) (peripheral); D64.9 Anemia, unspecified; E78.5 Hyperlipidemia, unspecified; I12.9 Hypertensive chronic kidney disease with stage 1 through stage 4 chronic kidney disease, or unspecified chronic kidney disease; N18.9 Chronic kidney disease, unspecified; Z88.0 Allergy status to penicillin
CPT/HCPCS: 36415; 71010; 76700; 80048; 80053; 80202; 81003; 82140; 82248; 82550; 83605; 83880; 84484; 85007; 85025; 85610; 85730; 86850; 86900; 86901; 86920; 87040; 93005; 93970; J2405; J3430

== ENCOUNTER 2016-07-20 12:56 | Inpatient (IN) | payer MEDICARE, OTHER ==
[2016-07-20] VITALS (8 sets, daily range): BP systolic 93–128; BP diastolic 40–73
[~2016-07-20] VITALS: Ht 157.5 cm; Wt 84.8 kg
[~2016-07-20 12:56] MED LIST changes: -Morphine Sulfate 2mg/ml Inj IVP ONE
[2016-07-20 13:46] LABS: MEAN CORPUSCULAR HEMOGLOBIN 34.2 PG (27.0-31.0); MEAN CORPUSCULAR VOLUME 107 FL (80-99); PLATELET COUNT 65 K/UL (150-450); RED BLOOD COUNT 2.87 M/UL (4.20-5.40); RED CELL DISTRIBUTION WIDTH 19.2 % (11.6-14.8); WHITE BLOOD COUNT 7.3 K/UL (4.8-10.8)
[2016-07-20 13:57] LABS: INR 1.5 (0.9-1.1); PROTHROMBIN TIME 15.9 SEC (9.30-11.50)
[2016-07-20 14:06] LABS: ALANINE AMINOTRANSFERASE 30 U/L (3-33); ALBUMIN/GLOBULIN RATIO 1.3 (1.0-2.7); ANION GAP 13 (5-15); ASPARTATE AMINO TRANSFERASE 56 U/L (5-40); CALCIUM 9.3 mg/dL (8.6-10.2); CARBON DIOXIDE 22 mEQ/L (20-30); CHLORIDE 97 mEQ/L (98-107); HEMOLYSIS 17; LIPASE 25 U/L (< 60); POTASSIUM 5.1 mEQ/L (3.4-4.9); SODIUM 132 mEQ/L (135-145); TOTAL PROTEIN 5.7 g/dL (6.6-8.7)
[2016-07-20 14:16] LABS: BILIRUBIN,DIRECT 1.7 mg/dL (0.1-0.3)
[2016-07-20 14:23] LABS: ANISOCYTOSIS 2+; BAND NEUTROPHILS % (MANUAL) 1 % (0-8); BASOPHILS % (MANUAL) 0 % (0-2); EOSINOPHILS % (MANUAL) 1 % (0-3); LYMPHOCYTES % (MANUAL) 16 % (20-45); MACROCYTES 1+; NEUTROPHILS % (MANUAL) 68 % (45-75); PLATELET ESTIMATE DECREASED; PLATELET MORPHOLOGY NORMAL; TOTAL CELLS COUNTED 100
[2016-07-20 14:24] LABS: HYPOCHROMASIA 1+
--- NOTE | 2016-07-20 16:12 | Emergency Room Report ---
History of Present Illness General Chief Complaint: Abdominal Pain Source: Patient, EMS Present Illness HPI Patient presents with continued abdominal pain Complains of distention and feeling somewhat short of breath with this Denies any chest pain denies any back or flank pain Patient reports pain 8/10 diffusely feels that her abdomen is distended Patient has a history of liver disease failure with ascites Denies any diarrhea denies any fevers or chills Denies any fall or trauma Allergies: Coded Allergies: PENICILLINS (Unverified Allergy, Unknown, 07/09/16) Patient History Past Medical History: see triage record Pertinent Family History: none Reviewed Nursing Documentation: PMH: Agreed, PSxH: Agreed Nursing Documentation-PMH Past Medical History Deferred: No Family Available Past Medical History: Deferred Hx Cardiac Problems: No Hx Hypertension: Yes Hx Cancer: No Hx Gastrointestinal Problems: Yes - Ascites Hx Neurological Problems: Yes - confusion Hx Neurologic Surgery: No Review of Systems All Other Systems: negative except mentioned in HPI Physical Exam Vital Signs Date Time Temp Pulse Resp B/P Pulse Ox O2 Delivery O2 Flow Rate FiO2 07/20/16 12:51 85 16 125/49 100 Room Air 07/20/16 13:33 98.7 Sp02 EP Interpretation: reviewed, normal General Appearance: no apparent distress Head: normocephalic, atraumatic Eyes: bilateral eye EOMI, bilateral eye PERRL, bilateral eye scleral icterus ENT: normal pharynx, no angioedema Neck: supple, thyroid normal Respiratory: lungs clear, normal breath sounds Cardiovascular #1: regular rate, rhythm, no gallop, no JVD Gastrointestinal: other - Ascites, positive fluid wave, patient has skin breakdown right mid abdomen Musculoskeletal: other - Edematous diffusely no obvious focal deficit Neurologic: alert, oriented x3, responsive Skin: jaundice Lymphatic: no adenopathy Medical Decision Making Diagnostic Impression: Primary Impression: Ascites Additional Impression: Abdominal pain ER Course Multiple differentials including but not limited to sbp, bowel obstruction, UTI All considered Patient's blood work continues to be at baseline levels is previous signs of liver disease with low platelets Patient's ammonia level is mildly elevated along with a potassium Patient provided with lactulose for this and stable for med surg admission Labs Test 07/20/16 13:30 07/20/16 15:00 White Blood Count 7.3 K/UL (4.8-10.8) Red Blood Count 2.87 M/UL (4.20-5.40) Hemoglobin 9.8 G/DL (12.0-16.0) Hematocrit 30.7 % (37.0-47.0) Mean Corpuscular Volume 107 FL (80-99) Mean Corpuscular Hemoglobin 34.2 PG (27.0-31.0) Mean Corpuscular Hemoglobin Concent 32.0 G/DL (32.0-36.0) Red Cell Distribution Width 19.2 % (11.6-14.8) Platelet Count 65 K/UL (150-450) Mean Platelet Volume 14.0 FL (6.5-10.1) Neutrophils (%) (Auto) % (45.0-75.0) Lymphocytes (%) (Auto) % (20.0-45.0) Monocytes (%) (Auto) % (1.0-10.0) Eosinophils (%) (Auto) % (0.0-3.0) Basophils (%) (Auto) % (0.0-2.0) Differential Total Cells Counted 100 Neutrophils % (Manual) 68 % (45-75) Lymphocytes % (Manual) 16 % (20-45) Monocytes % (Manual) 14 % (1-10) Eosinophils % (Manual) 1 % (0-3) Basophils % (Manual) 0 % (0-2) Band Neutrophils 1 % (0-8) Platelet Estimate Decreased Platelet Morphology Normal Hypochromasia 1+ Anisocytosis 2+ Macrocytosis 1+ Prothrombin Time 15.9 SEC (9.30-11.50) Prothromb Time International Ratio 1.5 (0.9-1.1) Activated Partial Thromboplast Time 44 SEC (23-33) Sodium Level 132 mEQ/L (135-145) Potassium Level 5.1 mEQ/L (3.4-4.9) Chloride Level 97 mEQ/L (98-107) Carbon Dioxide Level 22 mEQ/L (20-30) Anion Gap 13 (5-15) Blood Urea Nitrogen 31 mg/dL (7-23) Creatinine 1.0 mg/dL (0.5-0.9) Estimat Glomerular Filtration Rate mL/min (>60) Glucose Level 118 mg/dL (74-106) Calcium Level 9.3 mg/dL (8.6-10.2) Total Bilirubin 7.8 mg/dL (0.0-1.2) Direct Bilirubin 1.7 mg/dL (0.1-0.3) Aspartate Amino Transf (AST/SGOT) 56 U/L (5-40) Alanine Aminotransferase (ALT/SGPT) 30 U/L (3-33) Alkaline Phosphatase 204 U/L (35-104) Total Protein 5.7 g/dL (6.6-8.7) Albumin 3.3 g/dL (3.5-5.2) Globulin 2.4 g/dL Albumin/Globulin Ratio 1.3 (1.0-2.7) Lipase 25 U/L (< 60) Ammonia 91 umol/L (11-51) Rhythm Strip Diag. Results EP Interpretation: yes Rate: 67 Rhythm: NSR, no PVC's Chest X-Ray Diagnostic Results EP Interpretation: Yes Findings: no consolidation, no effusion, no pneumothorax Number of Views: 1 Last Vital Signs Date Time Temp Pulse Resp B/P Pulse Ox O2 Delivery O2 Flow Rate FiO2 07/20/16 14:30 72 21 111/45 95 Room Air 07/20/16 13:33 98.7 Status: improved Disposition: ADMITTED INPATIENT Condition: Serious Scripts Doxycycline Monohydrate (DOXYCYCLINE MONOHYDRATE) 100 Mg Tablet 100 MG PO DAILY for 7 Days, TAB Prov: ROBERTA NORWOOD 07/23/16 Midodrine (Midodrine HCl) 10 Mg Tablet 10 MG ORAL THREE TIMES A DAY for 30 Days, #90 TAB Prov: ROBERTA NORWOOD 07/23/16 Referrals: NOT CHOSEN IPA/,REFERRING (PCP) MAMI HANSEN D.O. Jul 20, 2016 16:12
[2016-07-20] MEDS ORDERED: Lactulose 20gm/30ml UDC ORAL ONE (16:15)
--- NOTE | 2016-07-20 22:58 | History and Physical Report ---
DATE OF ADMISSION: 07/20/2016 CHIEF COMPLAINT AND REASON FOR HOSPITALIZATION: The patient is an 86-year-old lady with cirrhosis as well as ascites and weakness. 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 She recently was hospitalized at [facility] with edema and cellulitis of the leg. She had mild acute kidney injury with creatinine going from 1.1 to 1.7 back to 1.2. She had diuretics held initially and then diuresed, and was discharged in improved condition. She was brought to the hospital today with increasing abdominal pain and ascites. No nausea, vomiting, fever, or chills. The family apparently had her brought to the hospital, but had been unable to reach the daughter. ALLERGIES: None known. MEDICATIONS: Medications from prior admission include carvedilol, Lasix, lactulose, midodrine, Protonix, Lyrica, rifaximin, Zocor, and spironolactone. I have placed a call to the family to confirm dosing and if any changes have been made. She was given a prescription for Keflex on discharge from the hospital a few days ago. HABITS: She is a nondrinker and nonsmoker. No use of illicit drugs. SURGERIES: She has had paracentesis. She had bilateral total knee replacements. REVIEW OF SYSTEMS: Head, Eyes, Ears, Nose, And Throat: Vision and hearing are good. Endocrine: No diabetes or thyroid disease. Pulmonary: No chronic cough or asthma. No TB. Cardiac: History of edema, but no definite congestive heart failure. History of hypertension. Gastrointestinal: No rectal bleeding. No nausea or vomiting. She is on Protonix for gastritis. Genitourinary: No dysuria or hematuria. Neurologic: History of hepatic encephalopathy, controlled with medications generally. No history of stroke or seizures. Musculoskeletal: History of osteoarthritis of the knees and bilateral total knee replacement. PHYSICAL EXAMINATION: GENERAL: The patient is seen in the emergency department. She is alert and responsive. VITAL SIGNS: Pulse 72, respirations 21, and blood pressure 111/45, pulse ox 95%. HEAD, EYES, EARS, NOSE, AND THROAT: There is no conjunctivitis. Sclerae show moderate icterus. Oral mucosa moist. NECK: No adenopathy. LUNGS: Clear. HEART: Regular rhythm. I hear no murmur. ABDOMEN: Obese with moderate ascites. I am unable to feel liver or spleen. There is no rebound or focal tenderness. There is a dressing, which was removed in the right upper quadrant, apparently at the site of her prior paracentesis. There is some skin maceration and irritation in that area with some denuded skin, but no purulent drainage and no leakage of the content, although there is some blood on the dressing. RECTAL AND PELVIC: Deferred for the patient comfort. EXTREMITIES: Show 1+ edema with hyperpigmentation and healing cellulitis. NEUROLOGIC: She is alert and responsive. Ocular motions intact in all directions. Mouth symmetric. Tongue is midline. There is no tremor or asterixis. She moves all extremities equally. PERTINENT LABORATORY DATA: Sodium 132, potassium 5.1, BUN 31, and creatinine is 1. The albumin is 3.3 and total bilirubin is 7.8. Hemoglobin 9.8, hematocrit 30.7, and platelets 365,000. The INR is prolonged at 1.5. IMPRESSION: 1. 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 2. Increasing ascites with abdominal discomfort and fullness. 3. History of leakage from prior paracentesis site. 4. Recent cellulitis of the legs. 5. Fluid overload from cirrhosis. 6. Osteoarthritis. PLAN: At this time, I will re-culture her and put her back on broad-spectrum antibiotics in view of the recent cellulitis and concern of leakage from the right paracentesis site. We will place on diuretics. We discussed with the family the pros and cons of the paracentesis again. Awais Edward M.D. DR: SAMREEN JOB#: [id number] CC:
[2016-07-21] MEDS: Vancomycin 1gm/D5W 275ml IVPB SCH ×2
[2016-07-21] MEDS ORDERED: Vancomycin 1gm inj IVPB ONE (00:27)
[2016-07-21 00:57] VITALS: BP 114/42
[2016-07-21 04:00] VITALS: BP 104/39
[2016-07-21 06:38] LABS: MEAN CORPUSCULAR HEMOGLOBIN 34.5 PG (27.0-31.0); MEAN CORPUSCULAR HGB CONC 32.7 G/DL (32.0-36.0); MEAN CORPUSCULAR VOLUME 106 FL (80-99); PLATELET COUNT 47 K/UL (150-450); RED BLOOD COUNT 2.61 M/UL (4.20-5.40)
[2016-07-21 06:43] LABS: INR 1.7 (0.9-1.1); PROTHROMBIN TIME 17.3 SEC (9.30-11.50)
[2016-07-21 07:07] LABS: ALANINE AMINOTRANSFERASE 26 U/L (3-33); ALBUMIN/GLOBULIN RATIO 1.3 (1.0-2.7); ANION GAP 14 (5-15); ASPARTATE AMINO TRANSFERASE 44 U/L (5-40); CALCIUM 9.2 mg/dL (8.6-10.2); CARBON DIOXIDE 23 mEQ/L (20-30); CHLORIDE 99 mEQ/L (98-107); CREATININE 1.1 mg/dL (0.5-0.9); HEMOLYSIS 6; MAGNESIUM 1.8 mg/dL (1.7-2.5); PHOSPHORUS 3.7 mg/dL (2.5-4.8); POTASSIUM 4.6 mEQ/L (3.4-4.9); SODIUM 136 mEQ/L (135-145)
[2016-07-21 07:23] LABS: BILIRUBIN,DIRECT 1.9 mg/dL (0.1-0.3)
[2016-07-21 08:00] VITALS: BP 94/42
[2016-07-21] MEDS: Carvedilol 12.5mg tab ORAL SCH ×2 (09:00→22:25)
[2016-07-21] MEDS: Lactulose 20gm/30ml UDC ORAL SCH ×4 (09:22→22:25)
[2016-07-21] MEDS: Spironolactone 50mg tab ORAL SCH ×2 (09:23→22:25)
[2016-07-21] MEDS: Rifaximin 550mg tab ORAL SCH ×2 (09:23→22:25)
--- NOTE | 2016-07-21 11:22 | Diagnostic Imaging Report ---
Indication: Chest pain Technique: One view of the chest Comparison: none Findings: Patient is rotated to the left. There is cardiomegaly. Degenerative changes of both shoulders are again noted Impression: Cardiomegaly. No acute process
[2016-07-21 11:38] LABS: EOSINOPHILS % (MANUAL) 2 % (0-3); LYMPHOCYTES % (MANUAL) 20 % (20-45); NEUTROPHILS % (MANUAL) 66 % (45-75); TOTAL CELLS COUNTED 100
[2016-07-21 11:39] LABS: ANISOCYTOSIS 2+; BAND NEUTROPHILS % (MANUAL) 0 % (0-8); BASOPHILS % (MANUAL) 0 % (0-2); HYPOCHROMASIA 1+; MACROCYTES 1+; PLATELET ESTIMATE DECREASED; PLATELET MORPHOLOGY NORMAL
[2016-07-21 12:00] VITALS: BP 115/52
[2016-07-21 16:26] VITALS: BP 127/56
[2016-07-21 20:29] VITALS: BP 130/70
--- NOTE | 2016-07-21 21:10 | General Progress Note ---
Assessment/Plan Problem List: (1) Cellulitis, leg ICD Codes: L03.119 - Cellulitis of unspecified part of limb SNOMED: 636703745 (2) Hepatic encephalopathy ICD Codes: K72.90 - Hepatic failure, unspecified without coma SNOMED: 00810018 (3) Thrombocytopenia ICD Codes: D69.6 - Thrombocytopenia SNOMED: 778648649 (4) Ascites ICD Codes: R18.8 - Other ascites SNOMED: 856737637 Assessment/Plan diuresis, watch abdominal wound, vanco Subjective HEENT: Reports: no symptoms Cardiovascular: Reports: no symptoms Respiratory: Reports: no symptoms Genitourinary: Reports: no symptoms Neurologic/Psychiatric: Reports: weakness Hematologic/Lymphatic: Reports: anemia Allergies: Coded Allergies: PENICILLINS (Unverified Allergy, Unknown, 07/09/16) Objective Last 24 Hour Vital Signs Date Time Temp Pulse Resp B/P Pulse Ox O2 Delivery O2 Flow Rate FiO2 07/21/16 20:29 98.1 92 18 130/70 94 Room Air 07/21/16 16:26 98.2 90 18 127/56 95 Room Air 07/21/16 12:00 97.0 79 20 115/52 100 Room Air 07/21/16 09:00 82 94/42 07/21/16 08:00 98.2 82 18 94/42 94 Room Air 07/21/16 04:00 97.7 86 20 104/39 95 Room Air 07/21/16 00:57 98.8 78 21 114/42 94 Room Air Intake and Output 07/20/16 07/21/16 19:00 07:00 # Voids 1 3 Laboratory Tests 07/21/16 05:35: White Blood Count 6.0, Red Blood Count 2.61L, Hemoglobin 9.0L, Hematocrit 27.5L , Mean Corpuscular Volume 106H, Mean Corpuscular Hemoglobin 34.5H, Mean Corpuscular Hemoglobin Concent 32.7, Red Cell Distribution Width 19.0H, Platelet Count 47L, Mean Platelet Volume 8.0, Neutrophils (%) (Auto) , Lymphocytes (%) (Auto) , Monocytes (%) (Auto) , Eosinophils (%) (Auto) , Basophils (%) (Auto) , Differential Total Cells Counted 100, Neutrophils % ( Manual) 66, Lymphocytes % (Manual) 20, Monocytes % (Manual) 12H, Eosinophils % ( Manual) 2, Basophils % (Manual) 0, Band Neutrophils 0, Platelet Estimate DecreasedL, Platelet Morphology Normal, Hypochromasia 1+, Anisocytosis 2+, Macrocytosis 1+, Prothrombin Time 17.3H, Prothromb Time International Ratio 1.7H , Activated Partial Thromboplast Time 52H, Sodium Level 136, Potassium Level 4.6 , Chloride Level 99, Carbon Dioxide Level 23, Anion Gap 14, Blood Urea Nitrogen 32H, Creatinine 1.1H, Estimat Glomerular Filtration Rate , Glucose Level 100, Calcium Level 9.2, Phosphorus Level 3.7, Magnesium Level 1.8, Total Bilirubin 7.7H, Direct Bilirubin 1.9H, Aspartate Amino Transf (AST/SGOT) 44H, Alanine Aminotransferase (ALT/SGPT) 26, Alkaline Phosphatase 172H, Total Protein 5.0L, Albumin 2.9L, Globulin 2.1, Albumin/Globulin Ratio 1.3 Height (Feet): 5 Height (Inches): 2.00 Weight (Pounds): 185 General Appearance: no apparent distress, alert EENT: other - icteric Neck: normal alignment Cardiovascular: normal rate Abdomen: distended Edema: 2+ Pedal (L), 2+ Pedal (R) Neurologic: display carver II-XII grossly normal ROBERTA NORWOOD Jul 21, 2016 21:10
[2016-07-22] VITALS: BP 90/38
[2016-07-22] MEDS: Vancomycin 1gm/D5W 275ml IVPB SCH ×2 (00:40)
[2016-07-22 04:00] VITALS: BP 76/39
[2016-07-22 07:19] LABS: MEAN CORPUSCULAR HEMOGLOBIN 34.2 PG (27.0-31.0); MEAN CORPUSCULAR HGB CONC 32.3 G/DL (32.0-36.0); MEAN CORPUSCULAR VOLUME 106 FL (80-99); MEAN PLATELET VOLUME 8.1 FL (6.5-10.1); PLATELET COUNT 32 K/UL (150-450); RED BLOOD COUNT 2.24 M/UL (4.20-5.40); RED CELL DISTRIBUTION WIDTH 18.4 % (11.6-14.8); WHITE BLOOD COUNT 3.5 K/UL (4.8-10.8)
[2016-07-22 07:31] LABS: ANION GAP 12 (5-15); CALCIUM 8.7 mg/dL (8.6-10.2); CARBON DIOXIDE 22 mEQ/L (20-30); CHLORIDE 103 mEQ/L (98-107); CREATININE 1.1 mg/dL (0.5-0.9); HEMOLYSIS 11; POTASSIUM 4.7 mEQ/L (3.4-4.9); SODIUM 137 mEQ/L (135-145)
[2016-07-22] MEDS: Carvedilol 12.5mg tab ORAL SCH (07:59)
[2016-07-22 08:00] VITALS: BP 88/46
[2016-07-22] MEDS: Spironolactone 50mg tab ORAL SCH ×2 (08:36→21:52)
[2016-07-22] MEDS: Rifaximin 550mg tab ORAL SCH ×2 (08:36→21:52)
[2016-07-22] MEDS: Lactulose 20gm/30ml UDC ORAL SCH ×4 (08:37→21:51)
[2016-07-22 11:50] LABS: ANISOCYTOSIS 1+; BAND NEUTROPHILS % (MANUAL) 0 % (0-8); BASOPHILS % (MANUAL) 0 % (0-2); EOSINOPHILS % (MANUAL) 1 % (0-3); HYPOCHROMASIA 1+; LYMPHOCYTES % (MANUAL) 17 % (20-45); MACROCYTES 1+; NEUTROPHILS % (MANUAL) 70 % (45-75); PLATELET ESTIMATE DECREASED; PLATELET MORPHOLOGY NORMAL; TOTAL CELLS COUNTED 100
[2016-07-22 12:00] VITALS: BP 89/38
[2016-07-22 13:49] LABS: OTHERS PATHOLOGIST COMMENT
[2016-07-22] MEDS: Midodrine 10mg tab ORAL SCH ×2 (15:17→17:20)
[2016-07-22 16:00] VITALS: BP 104/45
--- NOTE | 2016-07-22 16:04 | General Progress Note ---
Assessment/Plan Problem List: (1) Cellulitis, leg ICD Codes: L03.119 - Cellulitis of unspecified part of limb SNOMED: 275933500 (2) Hepatic encephalopathy ICD Codes: K72.90 - Hepatic failure, unspecified without coma SNOMED: 78642716 (3) Thrombocytopenia ICD Codes: D69.6 - Thrombocytopenia SNOMED: 997631242 (4) Ascites ICD Codes: R18.8 - Other ascites SNOMED: 323434212 (5) Hypotension ICD Codes: I95.9 - Hypotension, unspecified SNOMED: 40627034 (6) Cirrhosis ICD Codes: K74.60 - Cirrhosis SNOMED: 56005813 Assessment/Plan diuresis, watch abdominal wound, vanco, PT, low bp from cirrhosis, add midodrine , stop coreg, tolerates anemia Subjective Constitutional: Reports: weakness HEENT: Reports: no symptoms Cardiovascular: Reports: no symptoms Respiratory: Reports: no symptoms Gastrointestinal/Abdominal: Reports: abdomen distended Genitourinary: Reports: no symptoms Neurologic/Psychiatric: Reports: no symptoms Endocrine: Reports: no symptoms Allergies: Coded Allergies: PENICILLINS (Unverified Allergy, Unknown, 07/09/16) Objective Last 24 Hour Vital Signs Date Time Temp Pulse Resp B/P Pulse Ox O2 Delivery O2 Flow Rate FiO2 07/22/16 12:00 97.3 58 20 89/38 96 Room Air 07/22/16 08:00 98.1 69 18 88/46 95 Room Air 07/22/16 07:59 71 85/58 07/22/16 04:00 98.1 68 20 76/39 93 Room Air 07/22/16 00:00 99.9 79 19 90/38 90 Room Air 07/21/16 22:25 92 130/70 07/21/16 20:29 98.1 92 18 130/70 94 Room Air 07/21/16 16:26 98.2 90 18 127/56 95 Room Air Intake and Output 07/21/16 07/22/16 19:00 07:00 Intake Total 450 ml 240 ml Output Total 300 ml Balance 150 ml 240 ml Intake Oral 450 ml 240 ml Output Urine Total 300 ml # Voids 5 3 # Bowel Movements 2 3 Laboratory Tests 07/22/16 06:30: White Blood Count 3.5L, Red Blood Count 2.24L, Hemoglobin 7.7L, Hematocrit 23.7L , Mean Corpuscular Volume 106H, Mean Corpuscular Hemoglobin 34.2H, Mean Corpuscular Hemoglobin Concent 32.3, Red Cell Distribution Width 18.4H, Platelet Count 32L, Mean Platelet Volume 8.1, Neutrophils (%) (Auto) , Lymphocytes (%) (Auto) , Monocytes (%) (Auto) , Eosinophils (%) (Auto) , Basophils (%) (Auto) , Differential Total Cells Counted 100, Neutrophils % ( Manual) 70, Lymphocytes % (Manual) 17L, Monocytes % (Manual) 12H, Eosinophils % (Manual) 1, Basophils % (Manual) 0, Band Neutrophils 0, Other Cell Type Pathologist comment, Platelet Estimate DecreasedL, Platelet Morphology Normal, Hypochromasia 1+, Anisocytosis 1+, Macrocytosis 1+, Sodium Level 137, Potassium Level 4.7, Chloride Level 103, Carbon Dioxide Level 22, Anion Gap 12, Blood Urea Nitrogen 34H, Creatinine 1.1H, Estimat Glomerular Filtration Rate , Glucose Level 96, Calcium Level 8.7 Height (Feet): 5 Height (Inches): 2.00 Weight (Pounds): 185 General Appearance: no apparent distress, obese EENT: normal ENT inspection, other - icteric Neck: normal alignment Cardiovascular: normal rate, regular rhythm Respiratory/Chest: lungs clear Abdomen: distended Edema: 2+ Arm (L), 2+ Arm (R) 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
[2016-07-22 20:00] VITALS: BP 105/47
[2016-07-23] VITALS: BP 101/55
[2016-07-23] MEDS: Vancomycin 1gm/D5W 275ml IVPB SCH ×2 (01:26)
[2016-07-23 04:00] VITALS: BP 104/52
[2016-07-23 07:34] LABS: MEAN CORPUSCULAR HEMOGLOBIN 34.2 PG (27.0-31.0); MEAN CORPUSCULAR VOLUME 107 FL (80-99); MEAN PLATELET VOLUME 9.8 FL (6.5-10.1); PLATELET COUNT 39 K/UL (150-450); RED CELL DISTRIBUTION WIDTH 18.7 % (11.6-14.8); WHITE BLOOD COUNT 5.7 K/UL (4.8-10.8)
[2016-07-23 07:50] LABS: ANION GAP 14 (5-15); CARBON DIOXIDE 22 mEQ/L (20-30); CHLORIDE 102 mEQ/L (98-107); CREATININE 1.5 mg/dL (0.5-0.9); HEMOLYSIS 5; POTASSIUM 4.6 mEQ/L (3.4-4.9); SODIUM 138 mEQ/L (135-145)
[2016-07-23 08:20] VITALS: BP 94/48
[2016-07-23 08:50] LABS: BAND NEUTROPHILS % (MANUAL) 0 % (0-8); BASOPHILS % (MANUAL) 4 % (0-2); EOSINOPHILS % (MANUAL) 5 % (0-3); LYMPHOCYTES % (MANUAL) 9 % (20-45); NEUTROPHILS % (MANUAL) 72 % (45-75); PLATELET ESTIMATE DECREASED; TOTAL CELLS COUNTED 100
[2016-07-23 08:51] LABS: ANISOCYTOSIS 2+; HYPOCHROMASIA 3+; MACROCYTES 1+; PLATELET MORPHOLOGY NORMAL; SPHEROCYTES 1+
[2016-07-23] MEDS: Lactulose 20gm/30ml UDC ORAL SCH ×3 (09:00→18:00)
[2016-07-23] MEDS: Midodrine 10mg tab ORAL SCH ×3 (09:21→18:00)
[2016-07-23] MEDS: Spironolactone 50mg tab ORAL SCH (09:21)
[2016-07-23] MEDS: Rifaximin 550mg tab ORAL SCH (09:22)
[2016-07-23 12:38] VITALS: BP 98/58
--- NOTE | 2016-07-23 14:19 | Wound Care Consultation ---
Wound Assessment Wound Assessment #1: Wound Present on Admission: No New Wound: Yes Status Change of Wound: No Wound Location Body Site Modif: mid Wound Location Body Site: perineal area Wound Type: chemical burn Silverio Test: Does not Silverio Percent of Wound Gillis/Red: 100 Wound Drainage Amount: None Wound Drainage Odor: None/Absent Tissue Surrounding Wound: Erythemic Wound General Appearance: Reddened Wound Assessment #2: Wound Number: #2 Wound Present on Admission: Yes New Wound: No Status Change of Wound: No Wound Location Body Site: abdomen Wound Type: blister - open and intact Silverio Test: Does not Silverio Wound Thickness: Partial Thickness Percent of Wound Gillis/Red: 100 Wound Drainage Description: Serosanguineous Wound Drainage Amount: Scant Wound Drainage Odor: None/Absent Tissue Surrounding Wound: Denuded Wound General Appearance: Reddened, Draining Wound Assessment #3: Wound Number: #3 Wound Present on Admission: Yes New Wound: No Status Change of Wound: No Wound Location Body Site Modif: left, right, lower Wound Location Body Site: leg Wound Type: other - hyperpigmentation Silverio Test: Does not Silverio Edema Degree: 3+ deep indentation Percent of Wound Black/Brown: 100 Wound Drainage Amount: None Wound Drainage Odor: None/Absent Tissue Surrounding Wound: Edematous Wound General Appearance: Asymptomatic Wound Comment #1 Perineal chemical burn with erosion #2 Abdominal area open and intact blister #3 Left and Right lower legs hyperpigmentation Recommendation -Keep clean and dry -Local wound care per protocol -Offload both heels -Elevate both legs -Assess and f/u accordingly for any changes DEANDRE HUFF RN Jul 23, 2016 14:19
[2016-07-23 16:00] VITALS: BP 116/55
[2016-07-23] MEDS ORDERED: DOXYCYCLINE MO100 M2 PO (17:51)
[2016-07-23] MEDS ORDERED: PRO-AMATINE10 MG ORAL (17:51)
[2016-07-23 20:00] VITALS: BP 105/50
[2016-07-23] MEDS ORDERED: NS 550ML IV ONE (21:19)
--- NOTE | 2016-07-24 02:38 | Discharge Summary ---
DATE OF ADMISSION: 07/20/2016 DATE OF DISCHARGE: 07/23/2016 PERTINENT HISTORY: The patient is an 86-year-old lady with cirrhosis and chronic ascites. She presents with weakness and unable to manage at home with edema and ascites. She had a recent paracentesis. There was recent hospitalization with cellulitis of the legs. PERTINENT PHYSICAL FINDINGS: GENERAL: The patient is alert. LUNGS: Clear. HEART: Regular rhythm. ABDOMEN: Obese with moderate ascites. There is a skin lesion with a dressing in the right side of the abdomen with recent bleeding from the skin lesion. EXTREMITIES: Show 1+ edema with hyperpigmentation and healing cellulitis. NEUROLOGIC: She is alert and oriented. No focal findings. COURSE IN THE HOSPITAL: The patient had ascites, fluid overload, abdominal discomfort and fullness. She has had increase of her diuretics, history of recent leakage and bleeding from the side of her prior paracentesis. I do not want to do another paracentesis as this is causing her peritonitis. She was given vancomycin and Zosyn for cellulitis and no leaking of the fluid from the abdominal wall with possible abscess. Culture of the abdominal wall area was negative. She was diuresed. She felt improved, but she was very weak and required rehabilitation. She was unable to ambulate unassisted and an ECF planning was requested by the family. She also had low blood pressure and her Coreg was discontinued and she was started on midodrine for hypotension and liver cirrhosis. There is no evidence of sepsis. On the day of discharge, she had a white count of 5.7, hemoglobin was 8.2, BUN 41, and creatinine of 1.5, which is slightly elevated from diuresis. She was icteric, alert, and in no acute distress. Lungs were clear. Heart with regular rhythm. She had mild ascites and 1 to 2+ edema. She felt that she reached maximum hospital benefit. She was discharged to an ECF for rehabilitation. The family and the patient are aware that she has a chronic severe disease of cirrhosis. FINAL DIAGNOSES: 1. Cirrhosis with ascites. 2. Fluid overload. 3. Lesion on the abdominal wall from prior paracentesis with the risk for infection. Culture is negative in this admission. 4. Recent cellulitis. 5. History of hepatic encephalopathy. 6. Anemia. 7. Thrombocytopenia. 8. Acute kidney injury due to diuresis. DISCHARGE DISPOSITION: She is discharged on a 2 g sodium diet. DISCHARGE MEDICATIONS: Per the discharge medication list through [facility] facility where she will receive rehabilitation and further care. Awais Edward M.D. DR: JOCELYN JOB#: [id number] CC:
== END 2016-07-23 21:20 | DRG 433 ==
LOC: EDBD 12:56 → EMR 13:30 → 3E 14:35 → EDBEDREQ 16:04
DX: K74.69 Other cirrhosis of liver (principal); L03.119 Cellulitis of unspecified part of limb; R18.8 Other ascites; I95.9 Hypotension, unspecified; D69.6 Thrombocytopenia, unspecified; K72.90 Hepatic failure, unspecified without coma; E87.79 Other fluid overload; T81.89XA Other complications of procedures, not elsewhere classified, initial encounter; D64.9 Anemia, unspecified; M19.90 Unspecified osteoarthritis, unspecified site; S30.821A Blister (nonthermal) of abdominal wall, initial encounter; Y84.4 Aspiration of fluid as the cause of abnormal reaction of the patient, or of later complication, without mention of misadventure at the time of the procedure
CPT/HCPCS: 36415; 71010; 80048; 80053; 82140; 82248; 83690; 83735; 84100; 85007; 85025; 85610; 85730; 87070; 87205

== ENCOUNTER 2016-09-09 00:37 | Inpatient (IN) | payer MEDICARE, OTHER ==
[~2016-09-09] VITALS: Ht 160 cm; Wt 75.7 kg
[2016-09-09] VITALS (8 sets, daily range): BP systolic 75–102; BP diastolic 28–54
[~2016-09-09 00:37] MED LIST changes: +DOXYCYCLINE MO100 M2 PO; +PRO-AMATINE10 MG ORAL
[2016-09-09] MEDS ORDERED: TYLENOL EXTRA500 MG ORAL (00:41)
[2016-09-09] MEDS ORDERED: TYLENOL325 MG ORAL (00:41)
[2016-09-09] MEDS ORDERED: MULTIVITAMINS1 EAC2 ORAL (00:41)
[2016-09-09 01:22] LABS: MEAN CORPUSCULAR HEMOGLOBIN 37.9 PG (27.0-31.0); MEAN CORPUSCULAR HGB CONC 32.3 G/DL (32.0-36.0); MEAN CORPUSCULAR VOLUME 117 FL (80-99); MEAN PLATELET VOLUME 7.7 FL (6.5-10.1); PLATELET COUNT 54 K/UL (150-450); RED CELL DISTRIBUTION WIDTH 18.1 % (11.6-14.8); WHITE BLOOD COUNT 7.3 K/UL (4.8-10.8)
[2016-09-09] MEDS ORDERED: Tubing IV Cassette IV ONE (01:33)
[2016-09-09 01:34] LABS: ALANINE AMINOTRANSFERASE 52 U/L (3-33); ANION GAP 18 (5-15); ASPARTATE AMINO TRANSFERASE 86 U/L (5-40); CARBON DIOXIDE 18 mEQ/L (20-30); CHLORIDE 90 mEQ/L (98-107); HEMOLYSIS 2; POTASSIUM 4.6 mEQ/L (3.4-4.9); SODIUM 126 mEQ/L (135-145); TOTAL PROTEIN 5.4 g/dL (6.6-8.7)
[2016-09-09 01:35] LABS: APPEARANCE,URINE CLEAR; KETONES,URINE NEGATIVE (NEGATIVE); LEUKOCYTE ESTERASE ,URINE 1+ (NEGATIVE); NITRITE,URINE NEGATIVE (NEGATIVE); PH,URINE 5 (4.5-8.0); PROTEIN,URINE NEGATIVE (NEGATIVE); UROBILINOGEN,URINE NORMAL MG/DL (0.0-1.0)
[2016-09-09 01:53] LABS: REFLEX LACTIC ACID YES OR NO YES
[2016-09-09 01:55] LABS: TROPONIN I 0.38 ng/mL (<=0.30)
[2016-09-09 02:00] LABS: BACTERIA,URINE MANY /HPF; RBC,URINE 0-2 /HPF (0 - 2); SQUAMOUS EPITHELIAL CELL,UR MODERATE /LPF (NONE/OCC)
[2016-09-09] MEDS ORDERED: NS 55 ML IV ONE (02:12)
[2016-09-09] MEDS ORDERED: Cefepime 1gm vial ONE (02:12)
[2016-09-09] MEDS ORDERED: Cefepime HCl 1 GM in D5W 55 ML IVPB ONE (02:15)
[2016-09-09 02:58] LABS: CKMB 4.3 ng/mL (< 3.8)
--- NOTE | 2016-09-09 03:34 | Emergency Room Report ---
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 She presents with chief complaint of fever [facility]. Also with nausea vomiting. Nursing staff said that they noticed a streak of blood. No diarrhea. Also with abdominal pain. Denies any other complaint. Allergies: Coded Allergies: PENICILLINS (Unverified Allergy, Unknown, 07/09/16) Patient History Past Medical History: see triage record, old chart reviewed Past Surgical History: other Pertinent Family History: none Social History: Reports: alcohol use - History of, Denies: smoking Last Menstrual Period: NONE Now: No Immunizations: other Reviewed Nursing Documentation: PMH: Agreed, PSxH: Agreed Nursing Documentation-PMH Hx Cardiac Problems: No Hx Cancer: No Hx Neurologic Surgery: No Review of Systems Constitutional: Reports: fever, malaise, weakness Eye: Denies: blurred vision, eye pain ENT: Denies: ear pain, nose congestion, throat swelling Respiratory: Denies: cough, shortness of breath Cardiovascular: Denies: chest pain, palpitations Gastrointestinal: Reports: abdominal pain, nausea, vomiting, Denies: diarrhea Musculoskeletal: Denies: back pain, joint pain Skin: Denies: rash Neurological: Denies: headache, numbness Endocrine: Denies: increased thirst, increased urine Hematologic/Lymphatic: Denies: easy bruising All Other Systems: negative except mentioned in HPI Physical Exam Vital Signs Date Time Temp Pulse Resp B/P Pulse Ox O2 Delivery O2 Flow Rate FiO2 09/09/16 00:26 98.4 117 18 80/48 94 Room Air 09/09/16 01:33 2.0 vitals with tachycardia and hypotension Sp02 EP Interpretation: reviewed, normal General Appearance: alert, mild distress, Chronically Ill Head: normocephalic, atraumatic Eyes: bilateral eye EOMI, bilateral eye PERRL ENT: hearing grossly normal, normal pharynx Neck: full range of motion, supple, no meningismus Respiratory: chest non-tender, lungs clear, normal breath sounds Cardiovascular #1: regular rate, rhythm, no murmur Gastrointestinal: normal bowel sounds, no mass, no organomegaly, no bruit, non- distended, tenderness - Diffusely Musculoskeletal: back normal, normal range of motion Neurologic: alert Psychiatric: mood/affect normal Skin: warm/dry Procedures Critical Care Time Critical Care Time Critical care is mandated in this patient who presented with severe sepsis. Patient require my urgent intervention to attenuate the risks of metabolic collapse which may lead to cardiovascular collapse and . Critical care time is 35 minutes excluding any reportable procedure. Critical care time included evaluation, multiple reevaluation, looking at old charts, interpreting laboratory and diagnostic data, discussing case with patient and family and consultants, and charting. Medical Decision Making Diagnostic Impression: Primary Impression: Severe sepsis Additional Impressions: Acute kidney failure Qualified Codes: N17.9 - Acute kidney failure, unspecified Anemia Qualified Codes: D64.9 - Anemia, unspecified UTI (lower urinary tract infection) Cirrhosis Qualified Codes: K70.31 - Alcoholic cirrhosis of liver with ascites Dehydration Thrombocytopenia ER Course Patient presents with severe sepsis/septic shock secondary to UTI. She may have SBP. After fluid she said she looking better. More responsive. She grew out Escherichia coli in the past is resistant to the fluoroquinolone but sensitive to ceftriaxone. I place her on cefepime. Lactic acid elevated. Will repeat. Will admit for further workup. Her troponin is slightly elevated. This is probably secondary to sepsis. I held off aspirin or any anticoagulations because of her incision and disease. Is shown the elevated INR , thrombocytopenia. This will definitely increased risk for bleeding. Prognosis poor. Lab Results Impression labs with elevated troponin. LFTs abnormal. EKG Diagnostic Results Rate: normal Rhythm: NSR ST Segments: no acute changes Rhythm Strip Diag. Results EP Interpretation: yes Rate: 94 Rhythm: NSR, no PVC's, no ectopy Chest X-Ray Diagnostic Results EP Interpretation: Yes Findings: no consolidation, no effusion, no pneumothorax, no acute cardiopulmonary disease, other - Atelectasis Number of Views: 1 CT/MRI/US Diagnostic Results CT/MRI/US Diagnostic Results : Imaging Test Ordered: CT abdomen and pelvis Impression Read by radiologist. Acute versus subacute left eighth rib fracture. Large volume ascites. Cirrhosis. Last Vital Signs Date Time Temp Pulse Resp B/P Pulse Ox O2 Delivery O2 Flow Rate FiO2 09/09/16 03:06 97.5 100 14 86/32 99 Nasal Cannula 3.0 Status: improved Disposition: ADMITTED INPATIENT Condition: Serious Referrals: ROBERTA NORWOOD (PCP) LU FRANK M.D. September 09, 2016 03:34
[2016-09-09 04:16] LABS: TROPONIN I 0.63 ng/mL (<=0.30)
[2016-09-09 05:52] LABS: INR 1.7 (0.9-1.1)
[2016-09-09 06:49] LABS: BILIRUBIN,DIRECT 3.2 mg/dL (0.1-0.3)
[2016-09-09 08:13] LABS: ANISOCYTOSIS 1+; BAND NEUTROPHILS % (MANUAL) 3 % (0-8); BASOPHILS % (MANUAL) 0 % (0-2); EOSINOPHILS % (MANUAL) 0 % (0-3); HYPOCHROMASIA 1+; LYMPHOCYTES % (MANUAL) 13 % (20-45); MACROCYTES 1+; NEUTROPHILS % (MANUAL) 80 % (45-75); PLATELET ESTIMATE DECREASED; PLATELET MORPHOLOGY NORMAL; TOTAL CELLS COUNTED 100
[2016-09-09 08:15] LABS: BURR CELLS OCCASIONAL; POLYCHROMASIA OCCASIONAL
[2016-09-09] MEDS ORDERED: Spironolactone 50mg tab ORAL SCH (09:00)
[2016-09-09] MEDS ORDERED: Lactulose 10gm/15ml UDC ORAL SCH (09:00)
[2016-09-09] MEDS: cefTRIAXone 1 GM in D5W 55 ML IVPB SCH (09:32)
[2016-09-09] MEDS: Rifaximin 550mg tab ORAL SCH ×2 (09:33→21:38)
[2016-09-09] MEDS: Midodrine 10mg tab ORAL SCH ×3 (09:33→17:13)
[2016-09-09 12:23] LABS: TROPONIN I 0.47 ng/mL (<=0.30)
--- NOTE | 2016-09-09 16:20 | Cardiology Report ---
APPROVED REPORT EKG Measurement Heart [id number] [id number] Sinus tachycardia. LBBB Abnormal ECG
[2016-09-09] MEDS: Lactulose 10gm/15ml UDC ORAL SCH ×2 (17:13→21:39)
[2016-09-09] MEDS ORDERED: Phytonadione 5 MG in D5W 55 ML IVPB ONE (17:15)
[2016-09-09] MEDS: Metoprolol Tartrate 12.5mg TAB ORAL SCH (21:00)
[2016-09-09 21:08] LABS: TROPONIN I 0.41 ng/mL (<=0.30)
--- NOTE | 2016-09-09 21:39 | History and Physical Report ---
DATE OF ADMISSION: 09/09/2016 CHIEF COMPLAINT AND REASON FOR HOSPITALIZATION: The patient is an 86-year-old lady with history of cryptogenic cirrhosis, presents with fever, nausea, and vomiting. HISTORY OF PRESENT ILLNESS: The patient has cryptogenic nonalcoholic cirrhosis and had fever of 101.1 degrees, nausea, and vomiting at the [facility]. Apparently, there is a scant amount of particles of blood in the emesis. History is significant for cirrhosis with ascites and she is getting repeated paracentesis at [facility] on almost a weekly basis. She has had edema and ascites. She has had cellulitis of the legs recently and had prior hospitalizations for the above. The patient had bilateral total knee replacement. She had anemia of chronic disease and outpatient hemoglobins have been between 6.8 and 8 over the last month. PAST MEDICAL AND SURGICAL HISTORY: Recurrent paracentesis and bilateral total knee replacement. She has had gynecologic surgery, possibly for cervical or ovarian cancer many many years ago. ALLERGIES: None known. MEDICATIONS: Current medications at the [facility] include the following. Furosemide 60 mg daily, lactulose 15 mL every four hours, multivitamin one daily, Protonix 40 mg daily, rifaximin 550 mg every 12 hours, simvastatin 20 mg at bedtime, spironolactone 75 mg a day, and Tylenol p.r.n. HABITS: She is a nondrinker and nonsmoker. No use of illicit drugs. SYSTEM REVIEW: HEENT: The patient's hearing is good. ENDOCRINE: No diabetes or thyroid disease. PULMONARY: No asthma or TB. CARDIAC: History of leg edema, but no definite CHF. She has bundle-branch block. The patient has a history of hyperlipidemia and borderline hypertension. GASTROINTESTINAL: No history of rectal bleeding. She is on Protonix for gastritis. GENITOURINARY: No dysuria or hematuria, but she had an abnormal urinalysis. NEUROLOGIC: History of hepatic encephalopathy and cirrhosis. No strokes or seizures. MUSCULOSKELETAL: History of osteoarthritis in the knees and bilateral total knee replacement. PHYSICAL EXAMINATION: GENERAL: The patient is an alert lady, lying in bed, in no acute distress. VITAL SIGNS: Temperature is 96.9 degrees, pulse 96, respirations 20, blood pressure 75/36, and O2 saturation 95%. HEENT: Scleral icterus. Oral mucosa is slightly dry. NECK: No adenopathy. LUNGS: Clear. HEART: Regular rhythm. I hear no murmur. ABDOMEN: Soft. I am unable to clearly feel the liver or spleen. No soft ascites. Nontender. EXTREMITIES: No edema, cyanosis or clubbing. There are bilateral total knee replaced. NEUROLOGIC: She is alert and responsive. Ocular motions are intact in all directions. Mild symmetric. Tongue is midline. She moves all extremities equally. PERTINENT LABORATORY DATA: Shows sodium 126, potassium 4.6, BUN 34, creatinine 2, bilirubin 9, and direct bilirubin 3.2. CK-MB is 4.3, elevated. She also has had troponins at 0.38, 0.63, and 0.47. White count is 7.3, hemoglobin 8, and platelets 54,000. Urinalysis is done and shows 5 to 10 white cells per high power field. IMPRESSION: 1. Fever, nausea, and vomiting, possible sources of fever include urinary tract infection or spontaneous bacterial peritonitis. 2. Cirrhosis, cryptogenic. 3. Elevated BUN and creatinine likely from diuretics and/or chronic hepatorenal. 4. Hyponatremia. 5. Elevated troponin. 6. Possible demand ischemia, possible positive from renal insufficiency. PLAN: The patient will be given empiric antibiotics, supportive care, and anti-ischemic medications. She will be transfused in view of her anemia and elevated troponins. Case was discussed in detail with the daughter via access of sprue knocker, who feels that at this time, her mother does not want CPR. Awais Edward M.D. DR: Caprice JOB#: [id number] CC:
[2016-09-10] VITALS: BP 92/54
--- NOTE | 2016-09-10 01:58 | Consultation ---
DATE OF CONSULTATION: 09/09/2016 CONSULTING PHYSICIAN: Evan Fisher M.D. REFERRING PHYSICIAN: Awais Edward M.D. REASON FOR CONSULTATION: Elevated troponin level. HISTORY OF PRESENT ILLNESS: This is an 86-year-old female with cryptogenic cirrhosis. She was admitted to the hospital with fever, nausea, and vomiting. She has had signs of sepsis. She was noted to have several elevated troponin levels prompting this consultation. The patient has not had any chest pain. She has had recurring fevers up to 101. She has had hematemesis and has been getting repeated paracentesis at [facility] on a weekly basis for management of ascites. PAST MEDICAL HISTORY: Cryptogenic cirrhosis, ascites, bilateral total knee replacements, and possible history of cervical cancer in the past. ALLERGIES: None. SOCIAL HISTORY: Negative for smoking or alcohol use. MEDICATIONS: Prior to admission, reviewed and reconciled. FAMILY HISTORY: Not known. SYSTEM REVIEW: No history of myocardial infarction or exertional chest pain. There is a history of conduction system disease with bundle-branch block as well as hyperlipidemia and hypertension. There is no history of rheumatic or congenital heart disease. There is no history of blood clots in the legs or hypercoagulability. There is no history of diabetes or thyroid impairment. PHYSICAL EXAMINATION: GENERAL: Awake and alert, in no distress. Afebrile. VITAL SIGNS: T-max 101.1, blood pressure 75/36, heart rate 96, and respiratory rate 20. HEENT: Scleral icterus. Dry mucous membranes. NECK: Supple. LUNGS: Clear. CARDIAC: Regular rhythm and rate. Normal S1 and S2 with no murmur. ABDOMEN: Soft. No hepatomegaly. There is minimal ascites if any. EXTREMITIES: Without edema. NEUROLOGIC: Nonfocal. LABORATORY DATA: Sodium 126, potassium 4.6, BUN 34, and creatinine 2.0. White count 7.3, hemoglobin 8, and platelet count 54,000. Troponin levels 0.38, 0.63, and 0.47. EKG reveals sinus tachycardia and left bundle-branch block. Lactic acid level is 4.5. IMPRESSION: 1. Elevated troponin level, likely represent acute myocardial ischemia. 2. Left bundle-branch block, chronic and of no hemodynamic significance. 3. Secondary sinus tachycardia. 4. Cryptogenic cirrhosis with ascites and history of recurrent therapeutic paracenteses. 5. Anemia. 6. Thrombocytopenia. 7. History of hyperlipidemia. 8. Sepsis with possible shock. 9. Possible urinary tract infection. 10. Peritonitis with cholangitis. 11. Mild hyponatremia. PLAN: 1. Antibiotics. 2. Hydration. 3. Midodrine for blood pressure support, if inadequate may need pressors. 4. Transfuse for low hemoglobin. 5. Check echocardiogram. 6. Check CK with MB fraction. 7. Low-dose beta-yves can be titrated once blood pressure has stabilized. 8. No anti-platelet therapy in view of high bleeding risk. Evan Fisher M.D. DR: DEIDRA JOB#: [id number] CC: ADAL
[2016-09-10 04:00] VITALS: BP 100/48
[2016-09-10 08:00] VITALS: BP 101/46
[2016-09-10] MEDS: Midodrine 10mg tab ORAL SCH ×3 (08:07→18:45)
[2016-09-10] MEDS: Rifaximin 550mg tab ORAL SCH ×2 (08:08→20:29)
[2016-09-10] MEDS: Metoprolol Tartrate 12.5mg TAB ORAL SCH ×2 (08:08→20:42)
[2016-09-10] MEDS: Lactulose 10gm/15ml UDC ORAL SCH ×4 (08:08→20:30)
[2016-09-10] MEDS: cefTRIAXone 1 GM in D5W 55 ML IVPB SCH (08:12)
[2016-09-10 08:14] LABS: PROTHROMBIN TIME 20.8 SEC (9.30-11.50)
[2016-09-10 08:16] LABS: MEAN CORPUSCULAR HEMOGLOBIN 39.6 PG (27.0-31.0); MEAN CORPUSCULAR HGB CONC 34.3 G/DL (32.0-36.0); MEAN CORPUSCULAR VOLUME 115 FL (80-99); MEAN PLATELET VOLUME 7.6 FL (6.5-10.1); PLATELET COUNT 35 K/UL (150-450); RED BLOOD COUNT 2.08 M/UL (4.20-5.40); RED CELL DISTRIBUTION WIDTH 21.1 % (11.6-14.8); WHITE BLOOD COUNT 17.8 K/UL (4.8-10.8)
[2016-09-10 08:20] LABS: ALANINE AMINOTRANSFERASE 54 U/L (3-33); ALBUMIN/GLOBULIN RATIO 0.9 (1.0-2.7); ANION GAP 19 (5-15); ASPARTATE AMINO TRANSFERASE 104 U/L (5-40); CALCIUM 8.2 mg/dL (8.6-10.2); CARBON DIOXIDE 16 mEQ/L (20-30); CHLORIDE 91 mEQ/L (98-107); CREATININE 2.5 mg/dL (0.5-0.9); HEMOLYSIS 1; POTASSIUM 5.4 mEQ/L (3.4-4.9); SODIUM 126 mEQ/L (135-145); TOTAL PROTEIN 5.1 g/dL (6.6-8.7)
[2016-09-10 08:22] LABS: CKMB 11.6 ng/mL (< 3.8)
[2016-09-10 08:25] LABS: AMMONIA 32 umol/L (11-51)
[2016-09-10 08:34] LABS: BILIRUBIN,DIRECT 4.8 mg/dL (0.1-0.3)
[2016-09-10 08:38] LABS: TROPONIN I < 0.30 ng/mL (<=0.30)
--- NOTE | 2016-09-10 08:41 | Diagnostic Imaging Report ---
Indication: Abdominal pain Technique: Spiral acquisitions obtained through the abdomen and pelvis. No oral contrast utilized, per emergency room physician request No IV contrast utilized, per referring physician request.. Multiplanar reconstructions were generated. Total dose length product 918 mGycm. CTDIvol(s) 17 mGy. Dose reduction achieved using automated exposure control Comparison: 01/04/2015 Findings: Again demonstrated is colonic diverticulosis. No definite evidence of diverticulitis. There is edema of the wall of the ascending and proximal transverse colon. There is also wall thickening of much of the small bowel. This is most striking in the proximal jejunum as well as the distal ileum. The appendix is not definitely visualized, but there are no findings to suggest acute appendicitis. The there is a moderate amount of ascites fluid now present. No free intraperitoneal air. No evidence of loculated fluid. The distal esophagus demonstrates questionable small sliding-type hiatal hernia, also evident previously if real. There is mild wall thickening of the duodenum. Lack of IV contrast limits assessment of solid organs. There has been interim increase in the degree of hepatic parenchymal atrophy and surface nodularity, consistent with cirrhosis. Again demonstrated are likely upper abdominal varices, most abundant in the region of the lesser sac, but also anterior to the liver No definite focal abnormality. The gallbladder is filled with gallstones which appear more abundant than on the previous exam. Gallbladder is nondistended. No biliary ductal dilatation. The pancreas is atrophic. Again demonstrated is a calcification within the spleen, which is not enlarged. The adrenals are unremarkable. The left kidney again demonstrates a 2 cm lower pole cyst. No pelvic mass or adenopathy. The uterus is not evident, presumed surgically absent. There is fairly extensive edema of the anterior abdominal wall soft tissues. The heart is mildly enlarged. There are posterior dependent atelectatic changes at the lung bases. The bones demonstrate a mostly healed fracture deformity of the lateral right 10th rib, and an incompletely healed fracture of the posterior lateral right seventh rib. There is a more acute appearing fracture of the left seventh rib. There is a mostly healed fracture deformity of the anterolateral left sixth rib. There are degenerative changes of the lumbar spine. The bones are osteoporotic. There are degenerative changes of the right hip. There is anterolisthesis of L4 on L5 without associated spondylolysis defect, also evident previously. Impression: Diffuse small bowel wall thickening and proximal colonic wall thickening, possibly related to hepatocellular disease, but worrisome for enteritis/colitis, otherwise nonspecific as regards etiology Evidence of hepatic cirrhosis, progressive since prior exam of the 01/04/2015 Moderate ascites, new since 2015 exam but also described on prior ultrasound of 07/09/2016 Probable varices, also previously described Cholelithiasis. Note nonvisualization of the gallbladder described on recent ultrasound was probably due to gallbladder contraction Diverticulosis. No evidence of diverticulitis Extensive edema of the anterior abdominal wall soft tissues. This is a new finding Multiple bilateral rib fractures in various stages of healing, one or more appearing acute Cardiomegaly Incidental findings as noted, including L4 on L5 spondylolysis, osteoporosis, right hip degenerative changes, granulomatous calcification within the spleen, left renal lower pole cyst, prior hysterectomy, bibasilar pulmonary scarring/atelectasis This agrees with the preliminary interpretation provided overnight by [facility] teleradiology service. The CT scanner at [facility] is accredited by the [employer] and the scans are performed using protocols designed to limit radiation e -- xposure to as low as reasonably achievable to attain images of sufficient resolution adequate for diagnostic evaluation.
[2016-09-10 08:50] LABS: ANISOCYTOSIS 3+; BAND NEUTROPHILS % (MANUAL) 0 % (0-8); BASOPHILS % (MANUAL) 0 % (0-2); EOSINOPHILS % (MANUAL) 0 % (0-3); HYPOCHROMASIA 3+; LYMPHOCYTES % (MANUAL) 4 % (20-45); MACROCYTES 2+; NEUTROPHILS % (MANUAL) 88 % (45-75); PLATELET ESTIMATE DECREASED; PLATELET MORPHOLOGY NORMAL; SPHEROCYTES 2+; TOTAL CELLS COUNTED 100
[2016-09-10 12:00] VITALS: BP 96/47
--- NOTE | 2016-09-10 15:30 | General Progress Note ---
Assessment/Plan Problem List: (1) Heme + stool ICD Codes: R19.5 - Other fecal abnormalities SNOMED: 72925093, 325864707 (2) Hypotension ICD Codes: I95.9 - Hypotension SNOMED: 49987534 (3) CRISTAL (acute kidney injury) ICD Codes: N17.9 - Acute kidney failure, unspecified SNOMED: 34941630 (4) Altered mental status ICD Codes: R41.82 - Altered mental status, unspecified SNOMED: 992392373 (5) UTI (lower urinary tract infection) ICD Codes: N39.0 - Urinary tract infection, site not specified SNOMED: 6857427 (6) Hepatic encephalopathy ICD Codes: K72.90 - Hepatic encephalopathy SNOMED: 15835814 (7) Cirrhosis ICD Codes: K74.60 - Cirrhosis SNOMED: 71492869 (8) Severe sepsis ICD Codes: A41.9 - Sepsis, unspecified organism; R65.20 - Severe sepsis without septic shock SNOMED: 15992555 (9) Anemia ICD Codes: D64.9 - Anemia, unspecified SNOMED: 965973927 Qualifiers: Qualified Codes: D64.9 - Anemia, unspecified (10) Thrombocytopenia ICD Codes: D69.6 - Thrombocytopenia SNOMED: 418676310 Assessment/Plan G- sepsis, ID seeing, poor prognosis with cirrhosis d/w daughter, cristal hydrate cautiously, eleevated troponin, Cardiology eval appreciated Subjective Constitutional: Reports: weakness HEENT: Reports: no symptoms Cardiovascular: Reports: no symptoms Respiratory: Reports: no symptoms Gastrointestinal/Abdominal: Reports: no symptoms Genitourinary: Reports: no symptoms Neurologic/Psychiatric: Reports: other - lethargic Allergies: Coded Allergies: PENICILLINS (Unverified Allergy, Unknown, 07/09/16) Objective Last 24 Hour Vital Signs Date Time Temp Pulse Resp B/P Pulse Ox O2 Delivery O2 Flow Rate FiO2 09/10/16 12:00 109 09/10/16 12:00 97.3 94 19 96/47 93 Nasal Cannula 2.0 09/10/16 08:08 105 84/30 09/10/16 08:00 105 09/10/16 08:00 97.5 66 17 101/46 94 Simple Mask 2.0 09/10/16 04:00 102 09/10/16 04:00 97.6 105 21 100/48 96 Nasal Cannula 2.0 09/10/16 00:00 95 09/10/16 00:00 97.7 100 20 92/54 95 Nasal Cannula 2.0 09/09/16 20:00 93 09/09/16 20:00 97.5 96 22 102/44 93 Room Air 09/09/16 16:00 93 Intake and Output 09/09/16 09/10/16 19:00 07:00 Intake Total 511 ml 800 ml Balance 511 ml 800 ml Intake Oral 240 ml 200 ml IV Total 271 ml 600 ml # Voids 3 Laboratory Tests 09/09/16 20:08: Troponin I 0.41*H 09/10/16 06:50: Stool Occult Blood [Pending] 09/10/16 07:00: Troponin I < 0.30, White Blood Count 17.8#H, Red Blood Count 2.08L, Hemoglobin 8.3L, Hematocrit 24.0L, Mean Corpuscular Volume 115H, Mean Corpuscular Hemoglobin 39.6H, Mean Corpuscular Hemoglobin Concent 34.3, Red Cell Distribution Width 21.1H, Platelet Count 35L, Mean Platelet Volume 7.6, Neutrophils (%) (Auto) , Lymphocytes (%) (Auto) , Monocytes (%) (Auto) , Eosinophils (%) (Auto) , Basophils (%) (Auto) , Differential Total Cells Counted 100, Neutrophils % (Manual) 88H, Lymphocytes % (Manual) 4L, Monocytes % (Manual) 8, Eosinophils % (Manual) 0, Basophils % (Manual) 0, Band Neutrophils 0 , Platelet Estimate DecreasedL, Platelet Morphology Normal, Hypochromasia 3+, Anisocytosis 3+, Macrocytosis 2+, Spherocytes 2+, Prothrombin Time 20.8H, Prothromb Time International Ratio 2.0H, Sodium Level 126L, Potassium Level 5.4H , Chloride Level 91L, Carbon Dioxide Level 16L, Anion Gap 19H, Blood Urea Nitrogen 45H, Creatinine 2.5H, Estimat Glomerular Filtration Rate , Glucose Level 64L, Calcium Level 8.2L, Total Bilirubin 9.4H, Direct Bilirubin 4.8H, Aspartate Amino Transf (AST/SGOT) 104H, Alanine Aminotransferase (ALT/SGPT) 54H , Alkaline Phosphatase 121H, Ammonia 32, Total Creatine Kinase 123, Creatine Kinase MB 11.6H, Creatine Kinase MB Relative Index 9.4, Total Protein 5.1L, Albumin 2.5L, Globulin 2.6, Albumin/Globulin Ratio 0.9L Height (Feet): 5 Height (Inches): 3.00 Weight (Pounds): 167 General Appearance: lethargic EENT: other - icteric Neck: normal alignment Cardiovascular: normal rate, regular rhythm Respiratory/Chest: lungs clear, normal breath sounds Abdomen: other - ascites Edema: no edema noted Arm (L), no edema noted Arm (R), no edema noted Leg (L), no edema noted Leg (R), no edema noted Pedal (L), no edema noted Pedal (R), no edema noted Generalized Neurologic: disoriented Skin: warm/dry ROBERTA NORWOOD September 10, 2016 15:30
[2016-09-10 16:00] VITALS: BP 109/49
--- NOTE | 2016-09-10 16:42 | Infectious Diseases Prog Note ---
Assessment/Plan Assessment/Plan Full consult dictated: A) 1) gram neg uti and bacteremia, ? gi source 2) gram neg sepsis, sepsis, leukocytosis, fevers 3) jaime, anemia, cirrhosis, paracentesis hx 4) allergies - pcn P) 1) rocephin 2) check uc, bc and labs 3) continue treatment per Dr. Edward 4) thank you Subjective Allergies: Coded Allergies: PENICILLINS (Unverified Allergy, Unknown, 07/09/16) Objective Vital Signs Last 24 Hour Vital Signs Date Time Temp Pulse Resp B/P Pulse Ox O2 Delivery O2 Flow Rate FiO2 09/10/16 12:00 109 09/10/16 12:00 97.3 94 19 96/47 93 Nasal Cannula 2.0 09/10/16 08:08 105 84/30 09/10/16 08:00 105 09/10/16 08:00 97.5 66 17 101/46 94 Simple Mask 2.0 09/10/16 04:00 102 09/10/16 04:00 97.6 105 21 100/48 96 Nasal Cannula 2.0 09/10/16 00:00 95 09/10/16 00:00 97.7 100 20 92/54 95 Nasal Cannula 2.0 09/09/16 20:00 93 09/09/16 20:00 97.5 96 22 102/44 93 Room Air Height (Feet): 5 Height (Inches): 3.00 Weight (Pounds): 167 Microbiology Date/Time Source Procedure Growth Status 09/09/16 01:00 Blood Blood Culture - Preliminary Resulted 09/09/16 00:50 Blood Blood Culture - Preliminary Resulted 09/09/16 01:20 Urine,Clean Catch Urine Culture - Preliminary Gram Negative Bacillus 1 Resulted Laboratory Tests Test 09/09/16 20:08 09/10/16 06:50 09/10/16 07:00 Troponin I 0.41 ng/mL (<=0.30) *H < 0.30 ng/mL (<=0.30) Stool Occult Blood Pending White Blood Count 17.8 K/UL (4.8-10.8) #H Red Blood Count 2.08 M/UL (4.20-5.40) L Hemoglobin 8.3 G/DL (12.0-16.0) L Hematocrit 24.0 % (37.0-47.0) L Mean Corpuscular Volume 115 FL (80-99) H Mean Corpuscular Hemoglobin 39.6 PG (27.0-31.0) H Mean Corpuscular Hemoglobin Concent 34.3 G/DL (32.0-36.0) Red Cell Distribution Width 21.1 % (11.6-14.8) H Platelet Count 35 K/UL (150-450) L Mean Platelet Volume 7.6 FL (6.5-10.1) Neutrophils (%) (Auto) % (45.0-75.0) Lymphocytes (%) (Auto) % (20.0-45.0) Monocytes (%) (Auto) % (1.0-10.0) Eosinophils (%) (Auto) % (0.0-3.0) Basophils (%) (Auto) % (0.0-2.0) Differential Total Cells Counted 100 Neutrophils % (Manual) 88 % (45-75) H Lymphocytes % (Manual) 4 % (20-45) L Monocytes % (Manual) 8 % (1-10) Eosinophils % (Manual) 0 % (0-3) Basophils % (Manual) 0 % (0-2) Band Neutrophils 0 % (0-8) Platelet Estimate Decreased L Platelet Morphology Normal Hypochromasia 3+ Anisocytosis 3+ Macrocytosis 2+ Spherocytes 2+ Prothrombin Time 20.8 SEC (9.30-11.50) H Prothromb Time International Ratio 2.0 (0.9-1.1) H Sodium Level 126 mEQ/L (135-145) L Potassium Level 5.4 mEQ/L (3.4-4.9) H Chloride Level 91 mEQ/L (98-107) L Carbon Dioxide Level 16 mEQ/L (20-30) L Anion Gap 19 (5-15) H Blood Urea Nitrogen 45 mg/dL (7-23) H Creatinine 2.5 mg/dL (0.5-0.9) H Estimat Glomerular Filtration Rate mL/min (>60) Glucose Level 64 mg/dL (74-106) L Calcium Level 8.2 mg/dL (8.6-10.2) L Total Bilirubin 9.4 mg/dL (0.0-1.2) H Direct Bilirubin 4.8 mg/dL (0.1-0.3) H Aspartate Amino Transf (AST/SGOT) 104 U/L (5-40) H Alanine Aminotransferase (ALT/SGPT) 54 U/L (3-33) H Alkaline Phosphatase 121 U/L (35-104) H Ammonia 32 umol/L (11-51) Total Creatine Kinase 123 U/L (26-140) Creatine Kinase MB 11.6 ng/mL (< 3.8) H Creatine Kinase MB Relative Index 9.4 Total Protein 5.1 g/dL (6.6-8.7) L Albumin 2.5 g/dL (3.5-5.2) L Globulin 2.6 g/dL Albumin/Globulin Ratio 0.9 (1.0-2.7) L Current Medications Medications (Trade) Dose Ordered Sig/Raman Route PRN Reason Start Time Stop Time Status Last Admin Dose Admin Acetaminophen (Tylenol) 650 mg Q4H PRN ORAL Mild Pain/Temp > 100.5 09/09/16 05:45 10/09/16 05:44 Atorvastatin Calcium (Lipitor) 10 mg BEDTIME ORAL 09/09/16 21:00 10/09/16 20:59 09/09/16 21:38 Ceftriaxone Sodium/Dextrose (Rocephin/D5W) 55 ml @ 110 mls/hr Q24H IVPB 09/09/16 09:00 09/16/16 08:59 09/10/16 08:12 Heparin Sodium/ Sodium Chloride (Heparin 2000 units/Ns 1000ml premix) 2,000 unit ONCE ONCE INJ 09/10/16 17:00 09/10/16 17:01 Lactulose (Cephulac) 20 gm QID ORAL 09/10/16 18:00 10/10/16 17:59 Lidocaine HCl (Xylocaine 1% 30ml) 30 ml ONCE ONCE INJ 09/10/16 17:00 09/10/16 17:01 Metoprolol Tartrate (Lopressor) 12.5 mg Q12HR ORAL 09/09/16 21:00 10/09/16 20:59 Midodrine (Pro-Amatine) 10 mg THREE TIMES A DAY ORAL 09/09/16 09:00 10/09/16 08:59 09/10/16 13:20 Multivitamins 1 tab 1 tab DAILY ORAL 09/09/16 09:00 10/09/16 08:59 09/10/16 08:07 Ondansetron HCl (Zofran) 4 mg Q4H PRN IVP Nausea & Vomiting 09/09/16 05:45 10/09/16 05:44 Pantoprazole 40 mg 40 mg BID ORAL 09/09/16 18:00 10/09/16 17:59 09/10/16 08:08 Rifaximin (Xifaxan) 550 mg EVERY 12 HOURS ORAL 09/09/16 09:00 09/16/16 08:59 09/10/16 08:08 Sodium Bicarbonate (Sodium Bicarbonate) 50 ml ONCE ONCE IV 09/10/16 17:00 09/10/16 17:01 Sodium Chloride (Sodium Chloride 1000ml bag) 1,000 ml @ 50 mls/hr Q20H IV 09/09/16 16:30 10/09/16 16:29 09/10/16 13:21 LESLEY KIM September 10, 2016 16:42
[2016-09-10] MEDS ORDERED: Heparin 2000 units/Ns 1000ml INJ ONE (17:00)
[2016-09-10] MEDS ORDERED: Sodium Bicarbonate 8.4% 50ml Inj IV ONE (17:00)
[2016-09-10] MEDS ORDERED: Lidocaine 1% Plain 30 ml INJ ONE (17:00)
--- NOTE | 2016-09-10 17:19 | Progress Note ---
DATE: 09/10/2016 SUBJECTIVE: The patient is receiving a packed red blood cell transfusion today, no new distress. OBJECTIVE: VITAL SIGNS: Blood pressure 84/30, heart rate 105, respiratory rate 17, and afebrile. NECK: Supple. LUNGS: Clear. CARDIAC: Regular rhythm and rate. Normal S1 and S2 with a fourth heart sound. ABDOMEN: Soft. EXTREMITIES: With trace edema. LABORATORY DATA: Urine culture is positive for gram-negative bacilli. White count 17.8, hemoglobin 8.3. Sodium 126, potassium 5.4, bicarb 16, BUN 45, creatinine 2.5. Albumin 2.5. Troponin now is negative. IMPRESSION: 1. Urinary tract infection. 2. Septic shock. 3. Acute myocardial ischemia. 4. Hyponatremia. 5. Hyperkalemia. 6. Hypochloremia. 7. Metabolic acidosis. 8. Acute renal failure. 9. Severe protein-calorie malnutrition. 10. Anemia. 11. Leukocytosis. 12. Coagulopathy. PLAN: 1. Continue midodrine. 2. Volume resuscitation. 3. Check chest x-ray. 4. Broad-spectrum antibiotics, pending final cultures. 5. Continue anti-lipid therapy. 6. Hold anticoagulants and antiplatelet drugs. 7. Packed red blood cell transfusion for low hemoglobin. 8. Vitamin K. 9. May need pressors if condition fails to improve. Evan Fisher M.D. DR: Jay JOB#: [id number] CC:
[2016-09-10 20:00] VITALS: BP 103/40
[2016-09-10] MEDS: metroNIDAZOLE 500mg 100 ML IVPB SCH (20:29)
[2016-09-11 00:17] VITALS: BP 99/57
--- NOTE | 2016-09-11 03:29 | Consultation ---
DATE OF CONSULTATION: 09/10/2016 NOTE: POOR AUDIO QUALITY INFECTIOUS DISEASE CONSULTATION: CONSULTING PHYSICIAN: Samra Winter M.D. ATTENDING PHYSICIAN: Awais Edward M.D. REASON FOR CONSULTATION: Gram-negative bacteremia, sepsis, and gram-negative UTI. CHIEF COMPLAINT: The patient's chief complaint coming to the hospital is sepsis and UTI. HISTORY OF PRESENT ILLNESS: This is an 86-year-old female who has history of nonalcoholic cryptogenic cirrhosis. The patient at [facility] had a temperature 101.1 degrees. The patient also had emesis of blood. The patient has a history of paracentesis and ascites done at [facility]. The patient has been on antibiotics recently also for lower extremity cellulitis. The patient has been admitted to [facility] because of fevers and also mild leukocytosis likely septic. Workup showed that she has gram-negative bacteremia unlikely has a gram-negative UTI with bacteremia. However, she was also at risk for spontaneous bacterial peritonitis. This could also be source of sepsis. The patient had a CT scan, which showed small bowel wall thickening and proximal colonic wall thickening possibly hepatocellular disease and also recent peritonitis and colitis. The patient does not have diarrhea at this time to suggest infectious diarrhea C.diff. The patient was placed on Rocephin and Flagyl. Identification blood cultures gram-negative is pending and urine culture also has gram-negative identification pending. Case discussed with Dr. Edward. The patient overall cannot give a very good history at this time. PAST MEDICAL HISTORY: The patient has a past medical history following. The patient has a past medical history of cryptogenic cirrhosis and nonalcoholic cirrhosis. She has elevated creatinine. She has history of ascites and paracentesis, history of bilateral knee placement, history of cellulitis, history of gynecologic surgery unclear if cervical ovarian cancer many years ago, but this is not clear at this time. There is no mention history of hypertension or diabetes per the records. She does looks like she comes in with possible myocardial infarction or acute myocardial ischemia. She also has left bundle-branch block. She has anemia and hyperlipidemia. Please put past medical history in medical order. MEDICATIONS: Upon reviewing MAR, the patient is on the following medications. She is on Lactulose, Lipitor, Lopressor, and Protonix. She is on midodrine, rifaximin, multivitamins, Rocephin, Flagyl, acetaminophen, and Zofran. She was on heparin looks like also, but that has been discontinued. Please see medications in medical order. Outside medications were noted and reconciliated. ALLERGIES: Penicillin. SOCIAL HISTORY: Negative for smoking, alcohol, or drug abuse. FAMILY HISTORY: Noncontributory. No mention of exposure to tuberculosis or cancer per the records. REVIEW OF SYSTEMS: Constitutional: The patient has generalized weakness and fatigue, looks like she is arousable. She has history of fevers. Head And Neck: No obvious thrush, head pain, or neck stiffness. Cardiac: No pressors. Pulmonary: No congestion or shortness of breath. GI: No nausea, vomiting, or diarrhea. : She has some abdominal discomfort. No diarrhea, nausea, or vomiting. At this time, she did have emesis looks like at [facility]. Skin: No rash . Extremities: No obvious extremity pain. The patient has history of cellulitis. Neurologic: No seizures. PHYSICAL EXAMINATION: GENERAL: The patient is arousable, weak, and fatigue looking . VITAL SIGNS: Temperature 97.0 degrees, pulse 89, respiratory rate 18, blood pressure 109/49 and saturation 94% on two liters nasal canula. Outside records showed a temperature 101 plus. HEENT: Head and Neck: No head pain or neck pain. Neck is supple. Normocephalic. No obvious facial droop. Possible icterus noted also. HEART: Regular. No gallop or murmur. LUNGS: Clear bilaterally. No rales or rhonchi. ABDOMEN: Soft. Positive bowel sounds. Nontender. No obvious tenderness, but she has distended abdomen. SKIN: No rash . MUSCULOSKELETAL: No effusions noted. Legs are without cellulitis. PERIPHERAL VASCULAR: No cyanosis or gangrene. GENITOURINARY: No Mcfarland. LINE: Line site is without phlebitis. NEUROLOGIC: Weakness and responsive. No obvious focal changes. LABORATORY AND DIAGNOSTIC DATA: As follows, the patient's white count 17.8 and hemoglobin 8.3. The patient's creatinine is 2.5 and sodium 126. Total bilirubin 9.4 and direct bilirubin 4.8. Troponin 0.63, 0.47, 0.41 . Urinalysis had 1+ leukocyte esterase, 5-10 white blood cells, and many bacteria. Blood culture is gram-negative identification pending. Urine culture gram-negative identification is pending. CT scan the abdomen and pelvis showed diffuse small bowel wall thickening and proximal colonic wall thickening possibly hepatocellular disease and also recent peritonitis and colitis. Evidence of cirrhosis ascites noted. Gallbladder contraction noted and cholelithiasis. Diverticulosis, but no diverticulitis or abdominal wall edema. ASSESSMENT AND PLAN: 1. The patient has a gram-negative urinary tract infection and gram-negative bacteremia and also gram-negative sepsis syndrome with history of fevers. Most likely is gram-negative urinary tract infection with bacteremia as a source is gram-negative sepsis, however, the patient also would have GI source risk for spontaneous bacterial peritonitis. CT scan showed also possible enteritis, colitis. She has a risk of Clostridium difficile, however, she has no diarrhea. discussed with nursing staff. At this time, I will continue Rocephin and Flagyl check for Clostridium difficile. Check identification blood and urine cultures. Her elevated total bilirubin is likely secondary to underlying cirrhosis. CT scan showed dilated biliary duct, but she does have intractable . Continue Rocephin and Flagyl and check surveillance blood cultures identification of gram negative urine and blood and check followup labs. Also check chest x-ray which is ordered. Continue Rocephin and Flagyl . 2. cirrhosis, cryptogenic cirrhosis, nonalcoholic cirrhosis. 3. History of ascites and multiple paracentesis per the records. 4. The patient may need further paracentesis with ascites seen on CT scan. Consider Gastroenterology evaluation . 5. Anemia. 6. Elevated creatinine . 7. Hypernatremia. 8. Myocardial infarction. Myocardial ischemia. 9. Hyperlipidemia. 10. No history of diabetes or hypertension. 11. Thrombocytopenia. 12. Left bundle-branch block. 13. History of lower extremity cellulitis status post antibiotics. 14. History of gynecologic surgery cervical ovarian cancer. 15. Continue primary consultants, Dr. Edward. 16. Case was discussed with Dr. Edward. 17. Notes were reviewed. 18. Social history is negative. 19. Family history is noncontributory. 20. MAR is noted. 21. Case discussed with RN. 22. Allergies are penicillin and tolerated cephalosporins. Thank you, Dr. Edward. Samra Winter M.D. DR: Poncho JOB#: [id number] CC:
[2016-09-11 03:57] VITALS: BP 92/48
[2016-09-11 08:12] LABS: MEAN CORPUSCULAR HEMOGLOBIN 34.5 PG (27.0-31.0); MEAN CORPUSCULAR HGB CONC 32.7 G/DL (32.0-36.0); MEAN CORPUSCULAR VOLUME 106 FL (80-99); MEAN PLATELET VOLUME 9.6 FL (6.5-10.1); PLATELET COUNT 38 K/UL (150-450); RED BLOOD COUNT 2.51 M/UL (4.20-5.40); RED CELL DISTRIBUTION WIDTH 24.3 % (11.6-14.8); WHITE BLOOD COUNT 12.5 K/UL (4.8-10.8)
[2016-09-11 08:18] LABS: ALANINE AMINOTRANSFERASE 59 U/L (3-33); ALBUMIN/GLOBULIN RATIO 0.8 (1.0-2.7); ANION GAP 17 (5-15); ASPARTATE AMINO TRANSFERASE 115 U/L (5-40); CALCIUM 7.7 mg/dL (8.6-10.2); CARBON DIOXIDE 17 mEQ/L (20-30); CHLORIDE 94 mEQ/L (98-107); CREATININE 3.1 mg/dL (0.5-0.9); HEMOLYSIS 6; MAGNESIUM 1.8 mg/dL (1.7-2.5); SODIUM 128 mEQ/L (135-145); TOTAL PROTEIN 4.7 g/dL (6.6-8.7)
[2016-09-11 08:25] LABS: INR 1.9 (0.9-1.1); PROTHROMBIN TIME 19.8 SEC (9.30-11.50)
[2016-09-11 08:38] VITALS: BP 90/54
[2016-09-11] MEDS: metroNIDAZOLE 500mg 100 ML IVPB SCH ×2 (08:38→21:21)
[2016-09-11] MEDS: cefTRIAXone 1 GM in D5W 55 ML IVPB SCH (08:38)
[2016-09-11] MEDS: Rifaximin 550mg tab ORAL SCH ×2 (08:39→21:22)
[2016-09-11] MEDS: Metoprolol Tartrate 12.5mg TAB ORAL SCH ×2 (08:39→21:00)
[2016-09-11] MEDS: Midodrine 10mg tab ORAL SCH ×3 (08:41→17:34)
[2016-09-11] MEDS: Lactulose 10gm/15ml UDC ORAL SCH ×2 (08:42→13:40)
[2016-09-11 09:09] LABS: BILIRUBIN,DIRECT 4.9 mg/dL (0.1-0.3)
[2016-09-11] MEDS ORDERED: Heparin 2000 units/Ns 1000ml INJ ONE (10:30)
[2016-09-11] MEDS ORDERED: Lidocaine 1% Plain 30 ml INJ ONE (10:30)
[2016-09-11] MEDS ORDERED: Sodium Bicarbonate 8.4% 50ml Inj IV ONE (10:30)
--- NOTE | 2016-09-11 11:19 | Diagnostic Imaging Report ---
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 The left upper extremity was prepped with alcohol. All elements of maximal sterile barrier technique were followed including usage of a cap, mask, sterile gown, sterile gloves, hand hygiene and a large sterile sheet. Sonographic evaluation of the upper extremity was performed demonstrating a patent and compressible basilic vein. Access was obtained under real-time ultrasound guidance and digital image was saved and archived. An .018 wire was introduced. Needle exchanged for a 5 [place] peel-away sheath. Measurements were obtained. A 5 [place] dual-lumen Power PICC line catheter was cut to 39 cm and introduced over the wire. Peel-away sheath and wire were removed.Catheter was secured to the skin using 2-0 Prolene suture. Both ports aspirate and flush easily. Fluoroscopic Images show distal tip in the superior vena cava. Total fluoroscopic times O.3 minutes. Impression: Successful placement of an upper extremity PICC line catheter
[2016-09-11 11:58] VITALS: BP 91/33
[2016-09-11 12:06] LABS: ANISOCYTOSIS 2+; BAND NEUTROPHILS % (MANUAL) 0 % (0-8); BASOPHILS % (MANUAL) 0 % (0-2); EOSINOPHILS % (MANUAL) 0 % (0-3); HYPOCHROMASIA 1+; LYMPHOCYTES % (MANUAL) 5 % (20-45); MACROCYTES 1+; NEUTROPHILS % (MANUAL) 87 % (45-75); PLATELET ESTIMATE DECREASED; PLATELET MORPHOLOGY NORMAL; TOTAL CELLS COUNTED 100
--- NOTE | 2016-09-11 12:38 | Diagnostic Imaging Report ---
Indications: Shortness of breath during blood transfusion Technique: Portable AP chest Findings: Comparison: 09/09/2016 Inspiratory effort has improved. Linear density persists in the left lung base. Visualized portions of right lung clear. Elevation of the apparent hemidiaphragm unchanged. Heart size, pulmonary vasculature remain within normal limits. No pleural abnormality demonstrated. Aortic arch calcification and elongation, bilateral glenohumeral joint degenerative changes, chronic bilateral rotator cuff insufficiency again noted. IMPRESSION: No evidence of acute cardiopulmonary disease, unchanged Stable chronic changes as described
--- NOTE | 2016-09-11 14:01 | General Progress Note ---
Assessment/Plan Problem List: (1) Heme + stool ICD Codes: R19.5 - Other fecal abnormalities SNOMED: 63222069, 130849853 (2) Hypotension ICD Codes: I95.9 - Hypotension SNOMED: 54154957 (3) CRISTAL (acute kidney injury) ICD Codes: N17.9 - Acute kidney failure, unspecified SNOMED: 15275919 (4) Altered mental status ICD Codes: R41.82 - Altered mental status, unspecified SNOMED: 307247106 (5) UTI (lower urinary tract infection) ICD Codes: N39.0 - Urinary tract infection, site not specified SNOMED: 8268242 (6) Hepatic encephalopathy ICD Codes: K72.90 - Hepatic encephalopathy SNOMED: 88108855 (7) Cirrhosis ICD Codes: K74.60 - Cirrhosis SNOMED: 40762001 (8) Severe sepsis ICD Codes: A41.9 - Sepsis, unspecified organism; R65.20 - Severe sepsis without septic shock SNOMED: 86253203 (9) Anemia ICD Codes: D64.9 - Anemia, unspecified SNOMED: 903110264 Qualifiers: Qualified Codes: D64.9 - Anemia, unspecified (10) Thrombocytopenia ICD Codes: D69.6 - Thrombocytopenia SNOMED: 774886904 (11) Klebsiella sepsis ICD Codes: A41.4 - Sepsis due to anaerobes SNOMED: 140094326, 419120895 (12) Hepatorenal syndrome ICD Codes: K76.7 - Hepatorenal syndrome SNOMED: 69951994 (13) Pyelonephritis ICD Codes: N12 - Tubulo-interstitial nephritis, not specified as acute or chronic SNOMED: 00368022 Assessment/Plan G- sepsis, ID seeing, poor prognosis with cirrhosis d/w daughter, cristal hydrate cautiously, eleevated troponin, Cardiology eval appreciated, picc placed remains high risk Subjective Cardiovascular: Reports: no symptoms Respiratory: Reports: no symptoms Gastrointestinal/Abdominal: Reports: abdomen distended Genitourinary: Reports: no symptoms Neurologic/Psychiatric: Reports: weakness Endocrine: Reports: no symptoms Hematologic/Lymphatic: Reports: anemia Allergies: Coded Allergies: PENICILLINS (Unverified Allergy, Unknown, 07/09/16) Objective Last 24 Hour Vital Signs Date Time Temp Pulse Resp B/P Pulse Ox O2 Delivery O2 Flow Rate FiO2 09/11/16 11:58 97.3 90 20 91/33 94 Nasal Cannula 2.0 09/11/16 08:38 97.9 92 20 90/54 96 Nasal Cannula 2.0 09/11/16 04:00 95 09/11/16 03:57 97.3 97 20 92/48 95 09/11/16 00:17 97.0 93 20 99/57 95 Nasal Cannula 2.0 09/11/16 00:00 86 09/10/16 20:42 96 103/40 09/10/16 20:00 97.9 96 20 103/40 97 Nasal Cannula 2.0 09/10/16 20:00 93 09/10/16 16:00 104 09/10/16 16:00 97.0 90 19 109/49 94 Nasal Cannula 2.0 Intake and Output 09/10/16 09/11/16 19:00 07:00 Intake Total 700 ml 400 ml Balance 700 ml 400 ml Intake Oral 450 ml IV Total 250 ml 400 ml # Voids 2 # Bowel Movements 3 3 Laboratory Tests 09/11/16 05:20: Stool Occult Blood [Pending] 09/11/16 07:16: White Blood Count 12.5H, Red Blood Count 2.51L, Hemoglobin 8.7L, Hematocrit 26.5L, Mean Corpuscular Volume 106H, Mean Corpuscular Hemoglobin 34.5H, Mean Corpuscular Hemoglobin Concent 32.7, Red Cell Distribution Width 24.3H, Platelet Count 38L, Mean Platelet Volume 9.6, Neutrophils (%) (Auto) , Lymphocytes (%) (Auto) , Monocytes (%) (Auto) , Eosinophils (%) (Auto) , Basophils (%) (Auto) , Differential Total Cells Counted 100, Neutrophils % ( Manual) 87H, Lymphocytes % (Manual) 5L, Monocytes % (Manual) 8, Eosinophils % ( Manual) 0, Basophils % (Manual) 0, Band Neutrophils 0, Platelet Estimate DecreasedL, Platelet Morphology Normal, Hypochromasia 1+, Anisocytosis 2+, Macrocytosis 1+, Prothrombin Time 19.8H, Prothromb Time International Ratio 1.9H , Sodium Level 128L, Potassium Level 5.0H, Chloride Level 94L, Carbon Dioxide Level 17L, Anion Gap 17H, Blood Urea Nitrogen 53H, Creatinine 3.1H, Estimat Glomerular Filtration Rate , Glucose Level 67L, Calcium Level 7.7L, Magnesium Level 1.8, Total Bilirubin 9.0H, Direct Bilirubin 4.9H, Aspartate Amino Transf ( AST/SGOT) 115H, Alanine Aminotransferase (ALT/SGPT) 59H, Alkaline Phosphatase 124H, Ammonia 24, Pro-B-Type Natriuretic Peptide 4876H, Total Protein 4.7L, Albumin 2.1L, Globulin 2.6, Albumin/Globulin Ratio 0.8L Height (Feet): 5 Height (Inches): 3.00 Weight (Pounds): 167 General Appearance: no apparent distress, alert EENT: normal ENT inspection, other - icteric Neck: normal alignment Cardiovascular: normal rate, regular rhythm Respiratory/Chest: lungs clear Pelvis: other - soft ascites Neurologic: abnormal upset operator II-XII, other - no asterixis ROBERTA NORWOOD September 11, 2016 14:01
[2016-09-11 16:06] VITALS: BP 94/55
[2016-09-11] MEDS ORDERED: Lactulose 20gm/30ml UDC ORAL SCH (18:00)
--- NOTE | 2016-09-11 18:16 | Infectious Diseases Prog Note ---
Assessment/Plan Assessment/Plan ASSESSMENT AND PLAN: 1. klebsiella uti, gram neg bacteremia, sepsis, leukocytosis, fevers, colitis on ct, ? c.diff., ? peritonitis - leukocytosis better, fevers better - continue rocephin and flagyl - check bc id/sensitivities - check surveillance bc and labs 2. hx cirrhosis, cryptogenic cirrhosis, nonalcoholic cirrhosis. 3. History of ascites and multiple paracentesis per the records. 4. The patient may need further paracentesis with ascites seen on CT scan. Consider Gastroenterology evaluation . 5. Anemia. 6. Elevated creatinine 7. Hypernatremia. 8. Myocardial infarction. Myocardial ischemia. 9. Hyperlipidemia. 10. No history of diabetes or hypertension. 11. Thrombocytopenia. 12. Left bundle-branch block. 13. History of lower extremity cellulitis status post antibiotics. 14. History of gynecologic surgery with possible cervical and ovarian cancer. 15. Continue primary consultants, Dr. Edward. 16. Case was discussed with Dr. Edward. 17. Notes were reviewed. 18. Social history is negative. 19. Family history is noncontributory. 20. MAR is noted. 21. Case discussed with RN. 22. Allergies are penicillin and tolerated cephalosporins. Subjective Constitutional: Reports: fatigue, Denies: fever HEENT: Denies: congestion Respiratory: Denies: shortness of breath Cardiovascular: Denies: chest pain Gastrointestinal/Abdominal: Denies: diarrhea, nausea, vomiting Genitourinary: Denies: nocturia Neurologic: Denies: headache Psychiatric: Denies: depression Skin: Denies: rash Hematologic: Denies: bleeding Musculoskeletal: Denies: pain Allergies: Coded Allergies: PENICILLINS (Unverified Allergy, Unknown, 07/09/16) Objective Vital Signs Last 24 Hour Vital Signs Date Time Temp Pulse Resp B/P Pulse Ox O2 Delivery O2 Flow Rate FiO2 09/11/16 16:06 97.5 91 20 94/55 96 Nasal Cannula 2.0 09/11/16 12:00 87 09/11/16 11:58 97.3 90 20 91/33 94 Nasal Cannula 2.0 09/11/16 08:38 97.9 92 20 90/54 96 Nasal Cannula 2.0 09/11/16 08:00 93 09/11/16 04:00 95 09/11/16 03:57 97.3 97 20 92/48 95 09/11/16 00:17 97.0 93 20 99/57 95 Nasal Cannula 2.0 09/11/16 00:00 86 09/10/16 20:42 96 103/40 09/10/16 20:00 97.9 96 20 103/40 97 Nasal Cannula 2.0 09/10/16 20:00 93 Height (Feet): 5 Height (Inches): 3.00 Weight (Pounds): 167 General Appearance: no acute distress HEENT: normocephalic, atraumatic, anicteric, mucous membranes moist, PERRL, EOMI, pharynx normal, supple, no JVD Respiratory/Chest: lungs clear, normal breath sounds, no respiratory distress, no accessory muscle use Cardiovascular: normal rate, regular rhythm, no gallop/murmur, no JVD Abdomen: normal bowel sounds, soft, non tender, no organomegaly, non distended Genitourinary: other - no valdez Extremities: no cyanosis Skin: no rash Neurologic/Psychiatric: 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 Note nonvisualization of the gallbladder described on recent ultrasound was probably due to gallbladder contraction Diverticulosis. No evidence of diverticulitis Extensive edema of the anterior abdominal wall soft tissues. This is a new finding Multiple bilateral rib fractures in various stages of healing, one or more appearing acute Cardiomegaly Incidental findings as noted, including L4 on L5 spondylolysis, osteoporosis, right hip degenerative changes, granulomatous calcification within the spleen, left renal lower pole cyst, prior hysterectomy, bibasilar pulmonary scarring/atelectasis This agrees with the preliminary interpretation provided overnight by [employer] teleradiology service. The CT scanner at [facility] is accredited by the [employer] and the scans are performed using protocols designed to limit radiation e -- xposure to as low as reasonably achievable to attain images of sufficient Microbiology Date/Time Source Procedure Growth Status 09/09/16 01:00 Blood Blood Culture - Preliminary Gram Negative Bacillus 1 Resulted 09/09/16 00:50 Blood Blood Culture - Preliminary Gram Negative Bacillus 1 Resulted 09/09/16 04:00 Nasal Nares MRSA Culture - Final NO METHICILLIN RESISTANT STAPH AUREUS... Complete 09/09/16 01:20 Urine,Clean Catch Urine Culture - Final Klebsiella Pneumoniae Complete 09/09/16 04:00 Rectum VRE Culture - Final Enterococcus Faecium - Vre Complete Laboratory Tests Test 09/11/16 05:20 09/11/16 07:16 Stool Occult Blood Positive (NEGATIVE) White Blood Count 12.5 K/UL (4.8-10.8) H Red Blood Count 2.51 M/UL (4.20-5.40) L Hemoglobin 8.7 G/DL (12.0-16.0) L Hematocrit 26.5 % (37.0-47.0) L Mean Corpuscular Volume 106 FL (80-99) H Mean Corpuscular Hemoglobin 34.5 PG (27.0-31.0) H Mean Corpuscular Hemoglobin Concent 32.7 G/DL (32.0-36.0) Red Cell Distribution Width 24.3 % (11.6-14.8) H Platelet Count 38 K/UL (150-450) L Mean Platelet Volume 9.6 FL (6.5-10.1) Neutrophils (%) (Auto) % (45.0-75.0) Lymphocytes (%) (Auto) % (20.0-45.0) Monocytes (%) (Auto) % (1.0-10.0) Eosinophils (%) (Auto) % (0.0-3.0) Basophils (%) (Auto) % (0.0-2.0) Differential Total Cells Counted 100 Neutrophils % (Manual) 87 % (45-75) H Lymphocytes % (Manual) 5 % (20-45) L Monocytes % (Manual) 8 % (1-10) Eosinophils % (Manual) 0 % (0-3) Basophils % (Manual) 0 % (0-2) Band Neutrophils 0 % (0-8) Platelet Estimate Decreased L Platelet Morphology Normal Hypochromasia 1+ Anisocytosis 2+ Macrocytosis 1+ Prothrombin Time 19.8 SEC (9.30-11.50) H Prothromb Time International Ratio 1.9 (0.9-1.1) H Sodium Level 128 mEQ/L (135-145) L Potassium Level 5.0 mEQ/L (3.4-4.9) H Chloride Level 94 mEQ/L (98-107) L Carbon Dioxide Level 17 mEQ/L (20-30) L Anion Gap 17 (5-15) H Blood Urea Nitrogen 53 mg/dL (7-23) H Creatinine 3.1 mg/dL (0.5-0.9) H Estimat Glomerular Filtration Rate mL/min (>60) Glucose Level 67 mg/dL (74-106) L Calcium Level 7.7 mg/dL (8.6-10.2) L Magnesium Level 1.8 mg/dL (1.7-2.5) Total Bilirubin 9.0 mg/dL (0.0-1.2) H Direct Bilirubin 4.9 mg/dL (0.1-0.3) H Aspartate Amino Transf (AST/SGOT) 115 U/L (5-40) H Alanine Aminotransferase (ALT/SGPT) 59 U/L (3-33) H Alkaline Phosphatase 124 U/L (35-104) H Ammonia 24 umol/L (11-51) Pro-B-Type Natriuretic Peptide 4876 pg/mL (0-450) H Total Protein 4.7 g/dL (6.6-8.7) L Albumin 2.1 g/dL (3.5-5.2) L Globulin 2.6 g/dL Albumin/Globulin Ratio 0.8 (1.0-2.7) L Current Medications Medications (Trade) Dose Ordered Sig/Raman Route PRN Reason Start Time Stop Time Status Last Admin Dose Admin Acetaminophen (Tylenol) 650 mg Q4H PRN ORAL Mild Pain/Temp > 100.5 09/09/16 05:45 10/09/16 05:44 Atorvastatin Calcium (Lipitor) 10 mg BEDTIME ORAL 09/09/16 21:00 10/09/16 20:59 09/10/16 20:29 Ceftriaxone Sodium/Dextrose (Rocephin/D5W) 55 ml @ 110 mls/hr Q24H IVPB 09/09/16 09:00 09/16/16 08:59 09/11/16 08:38 Lactulose (Cephulac) 20 gm QID ORAL 09/11/16 18:00 10/11/16 17:59 09/11/16 17:33 Metoprolol Tartrate 12.5 mg 12.5 mg Q12HR ORAL 09/09/16 21:00 10/09/16 20:59 Metronidazole (Flagyl) 100 ml @ 100 mls/hr Q12HR IVPB 09/10/16 21:00 09/17/16 20:59 09/11/16 08:38 Midodrine (Pro-Amatine) 10 mg THREE TIMES A DAY ORAL 09/09/16 09:00 10/09/16 08:59 09/11/16 17:34 Multivitamins 1 tab 1 tab DAILY ORAL 09/09/16 09:00 10/09/16 08:59 09/11/16 08:39 Ondansetron HCl (Zofran) 4 mg Q4H PRN IVP Nausea & Vomiting 09/09/16 05:45 10/09/16 05:44 09/10/16 20:30 Pantoprazole 40 mg 40 mg BID ORAL 09/09/16 18:00 10/09/16 17:59 09/11/16 17:34 Rifaximin (Xifaxan) 550 mg EVERY 12 HOURS ORAL 09/09/16 09:00 09/16/16 08:59 09/11/16 08:39 Sodium Chloride (Sodium Chloride 1000ml bag) 1,000 ml @ 50 mls/hr Q20H IV 09/09/16 16:30 10/09/16 16:29 09/11/16 08:38 LESLEY KIM September 11, 2016 18:16
[2016-09-11 20:00] VITALS: BP 98/31
[2016-09-11] MEDS: Lactulose 20gm/30ml UDC ORAL SCH (21:21)
[2016-09-12] VITALS: BP_SYST 81; BP_SYST 97; BP_DIAS 41; BP_DIAS 55
--- NOTE | 2016-09-12 00:18 | Progress Note ---
DATE: 09/11/2016 CARDIOLOGY PROGRESS NOTE SUBJECTIVE: The patient is on IV antibiotics with gram-negative sepsis. The patient's blood pressure parameters remained tenuous. Monitored rhythm sinus. OBJECTIVE: VITAL SIGNS: Blood pressure 91/33, heart rate 90, respiratory rate 20, and afebrile. HEENT: Moderate exam. LUNGS: Clear. CARDIAC: Regular. Normal S1 and S2. ABDOMEN: Soft. EXTREMITIES: Mild ascites and trace edema. LABORATORY DATA: Urine culture is positive for Klebsiella and blood culture is pending. White count 12.5 and hemoglobin 8.7. Sodium 128, potassium 5, bicarbonate 17, BUN 53, and creatinine 3.1. Pro-natriuretic peptide is almost 5000. Albumin is 2.1. Troponin yesterday was negative. IMPRESSION: 1. Gram-negative sepsis. 2. Urinary tract infection. 3. Shock. 4. Bacteremia. 5. Severe protein-calorie malnutrition. 6. Acute myocardial ischemia. 7. Hyponatremia. 8. Hyperkalemia. 9. Acute on chronic renal failure. 10. Ascites 11. Cryptogenic cirrhosis. 12. Prior condition remains critical and prognosis is guarded. PLAN: 1. Avoid diuresis. 2. Continued antibiotics. 3. Await blood culture results. 4. Monitor liver function studies and renal parameters. 5. Would avoid anti-platelet therapy in view of thrombocytopenia. 6. Would continue beta-yves as tolerated by blood pressure and maintain midodrine for blood pressure support. Evan Fisher M.D. DR: EYAD JOB#: [id number] CC:
[2016-09-12 04:00] VITALS: BP 94/49
[2016-09-12 07:09] LABS: AMMONIA 33 umol/L (11-51)
[2016-09-12 07:14] LABS: ANION GAP 14 (5-15); CALCIUM 7.4 mg/dL (8.6-10.2); CARBON DIOXIDE 18 mEQ/L (20-30); CHLORIDE 97 mEQ/L (98-107); CREATININE 3.5 mg/dL (0.5-0.9); HEMOLYSIS 2; POTASSIUM 4.8 mEQ/L (3.4-4.9); SODIUM 129 mEQ/L (135-145)
[2016-09-12 07:35] LABS: MEAN CORPUSCULAR HEMOGLOBIN 33.2 PG (27.0-31.0); MEAN CORPUSCULAR HGB CONC 31.7 G/DL (32.0-36.0); MEAN CORPUSCULAR VOLUME 105 FL (80-99); MEAN PLATELET VOLUME 10.1 FL (6.5-10.1); PLATELET COUNT 31 K/UL (150-450); RED BLOOD COUNT 2.38 M/UL (4.20-5.40); RED CELL DISTRIBUTION WIDTH 23.4 % (11.6-14.8); WHITE BLOOD COUNT 8.6 K/UL (4.8-10.8)
[2016-09-12] MEDS: Metoprolol Tartrate 12.5mg TAB ORAL SCH ×2 (08:05→21:00)
[2016-09-12 08:13] VITALS: BP 93/59
[2016-09-12] MEDS: Midodrine 10mg tab ORAL SCH ×3 (08:28→17:59)
[2016-09-12] MEDS: Rifaximin 550mg tab ORAL SCH ×2 (08:28→21:42)
[2016-09-12] MEDS: Lactulose 20gm/30ml UDC ORAL SCH ×4 (08:28→21:42)
[2016-09-12] MEDS: cefTRIAXone 1 GM in D5W 55 ML IVPB SCH (08:28)
[2016-09-12] MEDS: metroNIDAZOLE 500mg 100 ML IVPB SCH ×2 (09:53→21:42)
[2016-09-12 11:17] LABS: ANISOCYTOSIS 2+; BAND NEUTROPHILS % (MANUAL) 1 % (0-8); BASOPHILS % (MANUAL) 0 % (0-2); EOSINOPHILS % (MANUAL) 0 % (0-3); HYPOCHROMASIA 1+; LYMPHOCYTES % (MANUAL) 7 % (20-45); MACROCYTES 1+; NEUTROPHILS % (MANUAL) 78 % (45-75); PLATELET ESTIMATE DECREASED; PLATELET MORPHOLOGY NORMAL; TOTAL CELLS COUNTED 100
[2016-09-12 11:35] VITALS: BP 92/49
--- NOTE | 2016-09-12 11:53 | General Progress Note ---
Assessment/Plan Problem List: (1) Heme + stool ICD Codes: R19.5 - Other fecal abnormalities SNOMED: 43093060, 282440735 (2) Hypotension ICD Codes: I95.9 - Hypotension SNOMED: 18412854 (3) CRISTAL (acute kidney injury) ICD Codes: N17.9 - Acute kidney failure, unspecified SNOMED: 77935212 (4) Altered mental status ICD Codes: R41.82 - Altered mental status, unspecified SNOMED: 110636834 (5) UTI (lower urinary tract infection) ICD Codes: N39.0 - Urinary tract infection, site not specified SNOMED: 0174145 (6) Hepatic encephalopathy ICD Codes: K72.90 - Hepatic encephalopathy SNOMED: 15053698 (7) Cirrhosis ICD Codes: K74.60 - Cirrhosis SNOMED: 90055806 (8) Severe sepsis ICD Codes: A41.9 - Sepsis, unspecified organism; R65.20 - Severe sepsis without septic shock SNOMED: 52903938 (9) Anemia ICD Codes: D64.9 - Anemia, unspecified SNOMED: 271799123 Qualifiers: Qualified Codes: D64.9 - Anemia, unspecified (10) Thrombocytopenia ICD Codes: D69.6 - Thrombocytopenia SNOMED: 096093228 (11) Klebsiella sepsis ICD Codes: A41.4 - Sepsis due to anaerobes SNOMED: 254671615, 722914994 (12) Hepatorenal syndrome ICD Codes: K76.7 - Hepatorenal syndrome SNOMED: 13297678 (13) Pyelonephritis ICD Codes: N12 - Tubulo-interstitial nephritis, not specified as acute or chronic SNOMED: 74850030 Assessment/Plan klebsiella sepsis, ID seeing, poor prognosis with cirrhosis d/w daughter, cristal hydrate cautiously, elevated troponin, Cardiology eval appreciated, picc placed remains high risk, rising creatinine, try octreotide and spa for hrs Subjective Constitutional: Reports: weakness HEENT: Reports: no symptoms Cardiovascular: Reports: no symptoms Respiratory: Reports: no symptoms Gastrointestinal/Abdominal: Reports: abdomen distended Genitourinary: Reports: incontinence Neurologic/Psychiatric: Reports: weakness Endocrine: Reports: no symptoms Hematologic/Lymphatic: Reports: anemia Allergies: Coded Allergies: PENICILLINS (Unverified Allergy, Unknown, 07/09/16) Objective Last 24 Hour Vital Signs Date Time Temp Pulse Resp B/P Pulse Ox O2 Delivery O2 Flow Rate FiO2 09/12/16 11:35 97.9 85 21 92/49 95 Nasal Cannula 2.0 09/12/16 08:13 97.7 87 21 93/59 96 Nasal Cannula 2.0 09/12/16 04:00 97.9 85 20 94/49 96 Nasal Cannula 09/12/16 00:00 97.7 78 20 97/55 98 Nasal Cannula 2.0 09/11/16 21:00 87 98/31 09/11/16 20:00 97.9 87 20 98/31 96 Room Air 09/11/16 16:06 97.5 91 20 94/55 96 Nasal Cannula 2.0 09/11/16 12:00 87 09/11/16 11:58 97.3 90 20 91/33 94 Nasal Cannula 2.0 Intake and Output 09/11/16 09/12/16 19:00 07:00 Intake Total 1140 ml 450 ml Balance 1140 ml 450 ml Intake Oral 480 ml IV Total 660 ml 450 ml # Voids 3 1 # Bowel Movements 3 1 Laboratory Tests 09/12/16 06:00: White Blood Count 8.6, Red Blood Count 2.38L, Hemoglobin 7.9L, Hematocrit 25.0L , Mean Corpuscular Volume 105H, Mean Corpuscular Hemoglobin 33.2H, Mean Corpuscular Hemoglobin Concent 31.7L, Red Cell Distribution Width 23.4H, Platelet Count 31L, Mean Platelet Volume 10.1, Neutrophils (%) (Auto) , Lymphocytes (%) (Auto) , Monocytes (%) (Auto) , Eosinophils (%) (Auto) , Basophils (%) (Auto) , Differential Total Cells Counted 100, Neutrophils % ( Manual) 78H, Lymphocytes % (Manual) 7L, Monocytes % (Manual) 14H, Eosinophils % (Manual) 0, Basophils % (Manual) 0, Band Neutrophils 1, Platelet Estimate DecreasedL, Platelet Morphology Normal, Hypochromasia 1+, Anisocytosis 2+, Macrocytosis 1+, Sodium Level 129L, Potassium Level 4.8, Chloride Level 97L, Carbon Dioxide Level 18L, Anion Gap 14, Blood Urea Nitrogen 58H, Creatinine 3.5H , Estimat Glomerular Filtration Rate , Glucose Level 94, Calcium Level 7.4L, Ammonia 33 Height (Feet): 5 Height (Inches): 3.00 Weight (Pounds): 167 General Appearance: no apparent distress, alert EENT: other - icteric Cardiovascular: normal rate, regular rhythm Respiratory/Chest: lungs clear Abdomen: non tender, distended Extremities: no calf tenderness Edema: trace edema Neurologic: health education director II-XII grossly normal, other - no asterixis ROBERTA NORWOOD September 12, 2016 11:53
[2016-09-12] MEDS ORDERED: SandoSTATIN 100mcg/ml amp SUBQ SCH (12:00)
--- NOTE | 2016-09-12 12:48 | Infectious Diseases Prog Note ---
Assessment/Plan Assessment/Plan ASSESSMENT AND PLAN: 1. klebsiella uti/pyelonephritis with klebsiella bacteremia, sepsis, leukocytosis, fevers, colitis on ct, ? c.diff., ? peritonitis - leukocytosis better, fevers better - continue rocephin and flagyl - check surveillance bc and labs 2. hx cirrhosis, cryptogenic cirrhosis, nonalcoholic cirrhosis. 3. History of ascites and multiple paracentesis per the records. 4. The patient may need further paracentesis with ascites seen on CT scan. Consider Gastroenterology evaluation . 5. Anemia. 6. Elevated creatinine 7. Hypernatremia. 8. Myocardial infarction. Myocardial ischemia. 9. Hyperlipidemia. 10. No history of diabetes or hypertension. 11. Thrombocytopenia. 12. Left bundle-branch block. 13. History of lower extremity cellulitis status post antibiotics. 14. History of gynecologic surgery with possible cervical and ovarian cancer. 15. Continue primary consultants 16. records reviewed 17. Notes were reviewed. 18. Social history is negative. 19. Family history is noncontributory. 20. MAR is noted. 21. Case discussed with RN. 22. Allergies are penicillin and tolerated cephalosporins. Subjective Constitutional: Reports: fatigue, Denies: fever HEENT: Denies: congestion Respiratory: Denies: shortness of breath Cardiovascular: Denies: chest pain Gastrointestinal/Abdominal: Denies: nausea, vomiting Genitourinary: Reports: other - + valdez Neurologic: Denies: headache Psychiatric: Denies: depression Skin: Denies: rash Hematologic: Denies: bleeding Musculoskeletal: Denies: pain Allergies: Coded Allergies: PENICILLINS (Unverified Allergy, Unknown, 07/09/16) Objective Vital Signs Last 24 Hour Vital Signs Date Time Temp Pulse Resp B/P Pulse Ox O2 Delivery O2 Flow Rate FiO2 09/12/16 11:35 97.9 85 21 92/49 95 Nasal Cannula 2.0 09/12/16 08:13 97.7 87 21 93/59 96 Nasal Cannula 2.0 09/12/16 04:00 97.9 85 20 94/49 96 Nasal Cannula 09/12/16 00:00 97.7 78 20 97/55 98 Nasal Cannula 2.0 09/11/16 21:00 87 98/31 09/11/16 20:00 97.9 87 20 98/31 96 Room Air 09/11/16 16:06 97.5 91 20 94/55 96 Nasal Cannula 2.0 Height (Feet): 5 Height (Inches): 3.00 Weight (Pounds): 167 General Appearance: no acute distress HEENT: normocephalic, atraumatic, EOMI, pharynx normal, supple, other - + icterus Respiratory/Chest: lungs clear, normal breath sounds, no respiratory distress, no accessory muscle use Cardiovascular: normal rate, regular rhythm, no gallop/murmur, no JVD Abdomen: normal bowel sounds, soft, non tender, no organomegaly, non distended Genitourinary: other - no valdez Extremities: no cyanosis, no clubbing Skin: no rash Neurologic/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: 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 Note nonvisualization of the gallbladder described on recent ultrasound was probably due to gallbladder contraction Diverticulosis. No evidence of diverticulitis Extensive edema of the anterior abdominal wall soft tissues. This is a new finding Multiple bilateral rib fractures in various stages of healing, one or more appearing acute Cardiomegaly Incidental findings as noted, including L4 on L5 spondylolysis, osteoporosis, right hip degenerative changes, granulomatous calcification within the spleen, left renal lower pole cyst, prior hysterectomy, bibasilar pulmonary scarring/atelectasis This agrees with the preliminary interpretation provided overnight by [employer] teleradiology service. The CT scanner at [facility] is accredited by the [employer] and the scans are performed using protocols designed to limit radiation e -- xposure to as low as reasonably achievable to attain images of sufficient Microbiology Date/Time Source Procedure Growth Status 09/09/16 01:00 Blood Blood Culture - Final Klebsiella Pneumoniae Complete 09/09/16 04:00 Nasal Nares MRSA Culture - Final NO METHICILLIN RESISTANT STAPH AUREUS... Complete 09/09/16 01:20 Urine,Clean Catch Urine Culture - Final Klebsiella Pneumoniae Complete 09/09/16 04:00 Rectum VRE Culture - Final Enterococcus Faecium - Vre Complete Laboratory Tests Test 09/12/16 06:00 White Blood Count 8.6 K/UL (4.8-10.8) Red Blood Count 2.38 M/UL (4.20-5.40) L Hemoglobin 7.9 G/DL (12.0-16.0) L Hematocrit 25.0 % (37.0-47.0) L Mean Corpuscular Volume 105 FL (80-99) H Mean Corpuscular Hemoglobin 33.2 PG (27.0-31.0) H Mean Corpuscular Hemoglobin Concent 31.7 G/DL (32.0-36.0) L Red Cell Distribution Width 23.4 % (11.6-14.8) H Platelet Count 31 K/UL (150-450) L Mean Platelet Volume 10.1 FL (6.5-10.1) Neutrophils (%) (Auto) % (45.0-75.0) Lymphocytes (%) (Auto) % (20.0-45.0) Monocytes (%) (Auto) % (1.0-10.0) Eosinophils (%) (Auto) % (0.0-3.0) Basophils (%) (Auto) % (0.0-2.0) Differential Total Cells Counted 100 Neutrophils % (Manual) 78 % (45-75) H Lymphocytes % (Manual) 7 % (20-45) L Monocytes % (Manual) 14 % (1-10) H Eosinophils % (Manual) 0 % (0-3) Basophils % (Manual) 0 % (0-2) Band Neutrophils 1 % (0-8) Platelet Estimate Decreased L Platelet Morphology Normal Hypochromasia 1+ Anisocytosis 2+ Macrocytosis 1+ Sodium Level 129 mEQ/L (135-145) L Potassium Level 4.8 mEQ/L (3.4-4.9) Chloride Level 97 mEQ/L (98-107) L Carbon Dioxide Level 18 mEQ/L (20-30) L Anion Gap 14 (5-15) Blood Urea Nitrogen 58 mg/dL (7-23) H Creatinine 3.5 mg/dL (0.5-0.9) H Estimat Glomerular Filtration Rate mL/min (>60) Glucose Level 94 mg/dL (74-106) Calcium Level 7.4 mg/dL (8.6-10.2) L Ammonia 33 umol/L (11-51) Current Medications Medications (Trade) Dose Ordered Sig/Raman Route PRN Reason Start Time Stop Time Status Last Admin Dose Admin Acetaminophen (Tylenol) 650 mg Q4H PRN ORAL Mild Pain/Temp > 100.5 09/11/16 21:45 10/11/16 21:44 Albumin Human (Albumisol) 50 ml @ 50 mls/hr Q6HR IV 09/12/16 12:00 09/13/16 19:00 Ceftriaxone Sodium 1 gm/ Dextrose 55 ml @ 110 mls/hr Q24H IVPB 09/12/16 09:00 09/16/16 08:59 09/12/16 08:28 Lactulose 10 gm 10 gm QID ORAL 09/12/16 13:00 10/12/16 12:59 Metoprolol Tartrate (Lopressor) 12.5 mg Q12HR ORAL 09/11/16 21:00 10/11/16 20:59 Metronidazole 100 ml @ 100 mls/hr Q12HR IVPB 09/11/16 21:00 09/17/16 20:59 09/12/16 09:53 Midodrine (Pro-Amatine) 10 mg THREE TIMES A DAY ORAL 09/12/16 09:00 10/12/16 08:59 09/12/16 08:28 Multivitamins (Multivitamins) 1 tab DAILY ORAL 09/12/16 09:00 10/12/16 08:59 09/12/16 08:29 Octreotide Acetate (SandoSTATIN) 100 mcg Q6H SUBQ 09/12/16 12:30 10/12/16 12:29 Ondansetron HCl (Zofran) 4 mg Q4H PRN IVP Nausea & Vomiting 09/11/16 21:45 10/11/16 21:44 Pantoprazole (Protonix) 40 mg BID ORAL 09/12/16 09:00 10/12/16 08:59 09/12/16 08:28 Rifaximin (Xifaxan) 550 mg EVERY 12 HOURS ORAL 09/11/16 21:00 09/18/16 20:59 09/12/16 08:28 Sodium Chloride (Sodium Chloride 1000ml bag) 1,000 ml @ 50 mls/hr Q20H IV 09/11/16 18:30 10/11/16 18:29 09/12/16 06:09 LESLEY KIM September 12, 2016 12:48
[2016-09-12] MEDS: SandoSTATIN 500mcg Inj SUBQ SCH ×2 (13:31→21:42)
[2016-09-12 15:18] LABS: APPEARANCE,URINE SLIGHTLY CLOUDY; KETONES,URINE 1+ (NEGATIVE); LEUKOCYTE ESTERASE ,URINE 2+ (NEGATIVE); NITRITE,URINE NEGATIVE (NEGATIVE); PH,URINE 5 (4.5-8.0); PROTEIN,URINE 1+ (NEGATIVE); UROBILINOGEN,URINE NORMAL MG/DL (0.0-1.0)
[2016-09-12 15:27] LABS: AMORPHOUS SEDIMENT,UR MODERATE /LPF; BACTERIA,URINE MODERATE /HPF; SQUAMOUS EPITHELIAL CELL,UR FEW /LPF (NONE/OCC); YEAST,URINE FEW /HPF
[2016-09-12 15:30] LABS: ICTOTEST POSITIVE
[2016-09-12 15:49] LABS: CREATININE, RANDOM URINE 181.8 mg/dL
[2016-09-12 15:50] VITALS: BP 100/53
[2016-09-12 20:00] VITALS: BP 97/44
[2016-09-13] VITALS (8 sets, daily range): BP systolic 72–108; BP diastolic 31–52
--- NOTE | 2016-09-13 00:08 | Progress Note ---
DATE: 09/12/2016 CARDIOLOGY PROGRESS NOTE SUBJECTIVE: The patient continues on IV antibiotics for Klebsiella bacteremia and sepsis. The patient has a PICC line for venous access. The patient's blood pressure remained tenuous. OBJECTIVE: VITAL SIGNS: Blood pressure 92/49, pulse 85, and respirations 21. She is afebrile. She is on 2 liters nasal cannula saturating 95%. LUNGS: Clear. CARDIAC: Regular rhythm and rate. Normal S1 and S2. A 1/6 systolic apical murmur. ABDOMEN: Soft and nontender. EXTREMITIES: With trace edema. There is slight ascites. LABORATORY DATA: White count 8.6 and hemoglobin 7.9. Sodium 129, potassium 4.8, bicarb 18, BUN 58, and creatinine 3.5. IMPRESSION: 1. Klebsiella bacteremia, sepsis, and shock. 2. Multiorgan system failure including progressive cardiorenal syndrome. 3. Anemia. PLAN: Continue antibiotics and Albumisol infusion. May need packed red blood cell transfusion. Cautious use of low-dose beta-yves in view of low range blood pressure. Midodrine ongoing for blood pressure support. Prognosis remains poor and condition remains serious. Evan Fisher M.D. DR: SHIELA JOB#: [id number] CC:
[2016-09-13] MEDS: SandoSTATIN 500mcg Inj SUBQ SCH ×4 (06:28→17:46)
[2016-09-13 06:51] LABS: INR 1.9 (0.9-1.1); PROTHROMBIN TIME 19.4 SEC (9.30-11.50)
[2016-09-13 06:54] LABS: MEAN CORPUSCULAR HEMOGLOBIN 34.2 PG (27.0-31.0); MEAN CORPUSCULAR HGB CONC 31.9 G/DL (32.0-36.0); MEAN CORPUSCULAR VOLUME 107 FL (80-99); PLATELET COUNT 29 K/UL (150-450); RED BLOOD COUNT 2.28 M/UL (4.20-5.40); RED CELL DISTRIBUTION WIDTH 23.4 % (11.6-14.8); WHITE BLOOD COUNT 6.3 K/UL (4.8-10.8)
[2016-09-13 07:11] LABS: AMMONIA 25 umol/L (11-51)
[2016-09-13 07:17] LABS: ANION GAP 20 (5-15); CALCIUM 7.4 mg/dL (8.6-10.2); CARBON DIOXIDE 15 mEQ/L (20-30); CHLORIDE 95 mEQ/L (98-107); CREATININE 3.7 mg/dL (0.5-0.9); HEMOLYSIS 4; POTASSIUM 5.1 mEQ/L (3.4-4.9); SODIUM 130 mEQ/L (135-145)
[2016-09-13] MEDS: cefTRIAXone 1 GM in D5W 55 ML IVPB SCH (08:49)
[2016-09-13] MEDS: Metoprolol Tartrate 12.5mg TAB ORAL SCH ×2 (09:00→21:00)
[2016-09-13] MEDS: Rifaximin 550mg tab ORAL SCH ×2 (10:02→21:16)
[2016-09-13] MEDS: metroNIDAZOLE 500mg 100 ML IVPB SCH ×2 (10:02→21:16)
[2016-09-13] MEDS: Midodrine 10mg tab ORAL SCH ×3 (10:02→17:43)
[2016-09-13] MEDS: Lactulose 20gm/30ml UDC ORAL SCH ×3 (10:03→17:43)
[2016-09-13 10:38] LABS: EOSINOPHILS % (MANUAL) 1 % (0-3); LYMPHOCYTES % (MANUAL) 8 % (20-45); NEUTROPHILS % (MANUAL) 84 % (45-75); TOTAL CELLS COUNTED 100
[2016-09-13 10:39] LABS: ANISOCYTOSIS 1+; BAND NEUTROPHILS % (MANUAL) 0 % (0-8); BASOPHILS % (MANUAL) 0 % (0-2); HYPOCHROMASIA 1+; PLATELET ESTIMATE DECREASED; PLATELET MORPHOLOGY NORMAL
--- NOTE | 2016-09-13 11:56 | General Progress Note ---
Assessment/Plan Problem List: (1) Heme + stool ICD Codes: R19.5 - Other fecal abnormalities SNOMED: 01960588, 322267757 (2) Hypotension ICD Codes: I95.9 - Hypotension SNOMED: 12217040 (3) CRISTAL (acute kidney injury) ICD Codes: N17.9 - Acute kidney failure, unspecified SNOMED: 23598213 (4) Altered mental status ICD Codes: R41.82 - Altered mental status, unspecified SNOMED: 359337163 (5) UTI (lower urinary tract infection) ICD Codes: N39.0 - Urinary tract infection, site not specified SNOMED: 0635985 (6) Hepatic encephalopathy ICD Codes: K72.90 - Hepatic encephalopathy SNOMED: 21042988 (7) Cirrhosis ICD Codes: K74.60 - Cirrhosis SNOMED: 10171874 (8) Severe sepsis ICD Codes: A41.9 - Sepsis, unspecified organism; R65.20 - Severe sepsis without septic shock SNOMED: 03085701 (9) Anemia ICD Codes: D64.9 - Anemia, unspecified SNOMED: 826460812 Qualifiers: Qualified Codes: D64.9 - Anemia, unspecified (10) Thrombocytopenia ICD Codes: D69.6 - Thrombocytopenia SNOMED: 099496088 (11) Klebsiella sepsis ICD Codes: A41.4 - Sepsis due to anaerobes SNOMED: 954301773, 694610034 (12) Hepatorenal syndrome ICD Codes: K76.7 - Hepatorenal syndrome SNOMED: 63986865 (13) Pyelonephritis ICD Codes: N12 - Tubulo-interstitial nephritis, not specified as acute or chronic SNOMED: 48610150 Assessment/Plan klebsiella sepsis, ID seeing, poor prognosis with cirrhosis d/w daughter, cristal hydrate cautiously, elevated troponin, Cardiology eval appreciated, picc placed remains high risk, rising creatinine, try octreotide and spa for hrs, gi bleed slow, agrees to transfuse Subjective Constitutional: Reports: weakness HEENT: Reports: no symptoms Cardiovascular: Reports: no symptoms Respiratory: Reports: no symptoms Gastrointestinal/Abdominal: Reports: no symptoms Genitourinary: Reports: incontinence Neurologic/Psychiatric: Reports: no symptoms Endocrine: Reports: no symptoms Hematologic/Lymphatic: Reports: anemia Allergies: Coded Allergies: PENICILLINS (Unverified Allergy, Unknown, 07/09/16) Objective Last 24 Hour Vital Signs Date Time Temp Pulse Resp B/P Pulse Ox O2 Delivery O2 Flow Rate FiO2 09/13/16 11:27 98.2 77 21 108/52 96 Nasal Cannula 2.0 09/13/16 09:00 70 92/42 09/13/16 07:40 97.0 70 21 92/42 97 Nasal Cannula 2.0 09/13/16 04:00 97.3 79 18 92/43 95 Room Air 09/13/16 00:30 88/52 09/13/16 00:00 97.0 80 16 81/41 99 Room Air 09/12/16 21:00 78 97/44 09/12/16 20:00 95.9 78 20 97/44 99 Nasal Cannula 2.0 09/12/16 15:50 97.7 80 21 100/53 96 Nasal Cannula 2.0 Bad tableLaboratory Tests 09/12/16 12:30: Urine Color Brown, Urine Appearance Slightly cloudy, Urine pH 5, Urine Specific [place] 1.025, Urine Protein 1+H, Urine Glucose (UA) Negative, Urine Ketones 1+H , Urine Occult Blood 1+H, Urine Nitrite Negative, Urine Bilirubin 2+H, Urine Ictotest Positive, Urine Urobilinogen Normal, Urine Leukocyte Esterase 2+H, Urine RBC 2-4H, Urine WBC 5-10H, Urine Squamous Epithelial Cells Few, Urine Amorphous Sediment ModerateH, Urine Bacteria ModerateH, Urine Yeast FewH, Urine Random Sodium 10, Urine Creatinine 181.8 09/13/16 06:00: White Blood Count 6.3, Red Blood Count 2.28L, Hemoglobin 7.8L, Hematocrit 24.5L , Mean Corpuscular Volume 107H, Mean Corpuscular Hemoglobin 34.2H, Mean Corpuscular Hemoglobin Concent 31.9L, Red Cell Distribution Width 23.4H, Platelet Count 29L, Mean Platelet Volume 13.0H, Neutrophils (%) (Auto) , Lymphocytes (%) (Auto) , Monocytes (%) (Auto) , Eosinophils (%) (Auto) , Basophils (%) (Auto) , Differential Total Cells Counted 100, Neutrophils % ( Manual) 84H, Lymphocytes % (Manual) 8L, Monocytes % (Manual) 7, Eosinophils % ( Manual) 1, Basophils % (Manual) 0, Band Neutrophils 0, Platelet Estimate DecreasedL, Platelet Morphology Normal, Hypochromasia 1+, Anisocytosis 1+, Prothrombin Time 19.4H, Prothromb Time International Ratio 1.9H, Sodium Level 130L, Potassium Level 5.1H, Chloride Level 95L, Carbon Dioxide Level 15L, Anion Gap 20H, Blood Urea Nitrogen 61H, Creatinine 3.7H, Estimat Glomerular Filtration Rate , Glucose Level 100, Calcium Level 7.4L, Ammonia 25 Height (Feet): 5 Height (Inches): 3.00 Weight (Pounds): 167 General Appearance: no apparent distress EENT: other - icteric Neck: normal alignment Cardiovascular: normal rate Respiratory/Chest: normal breath sounds Abdomen: distended Edema: 1+ Leg (L), 1+ Leg (R) 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
[2016-09-13] MEDS: Sucralfate 1gm tab ORAL SCH ×3 (13:07→21:16)
[2016-09-13] MEDS ORDERED: Tubing IV Secondary IV ONE (16:04)
[2016-09-13] MEDS ORDERED: Tubing Blood Filter IV ONE (16:04)
[2016-09-13] MEDS ORDERED: NS 275ml ONE (16:04)
[2016-09-14] VITALS (7 sets, daily range): BP systolic 72–111; BP diastolic 32–61
[2016-09-14] MEDS: SandoSTATIN 500mcg Inj SUBQ SCH ×3 (00:08→13:40)
--- NOTE | 2016-09-14 03:29 | Progress Note ---
DATE: 09/13/2016 CARDIOLOGY PROGRESS NOTE SUBJECTIVE: The patient remains on IV antibiotics. Blood pressure parameters remained poor. The patient is on IV fluids to maintain adequate perfusion pressures. OBJECTIVE: VITAL SIGNS: Blood pressure 108/52 earlier 92/42, heart rate 70, respiratory 21, and afebrile. NECK: Supple. LUNGS: With diminished breath sounds. CARDIAC: Regular rhythm and rate. Normal S1 and S2. ABDOMEN: Soft. Mild ascites. EXTREMITIES: With 1+ dependent edema bilaterally. LABORATORY DATA: White count 6.3 and hemoglobin 7.8. Sodium 130, potassium 5.1, bicarbonate 15, BUN 61 and creatinine 3.7. IMPRESSION: 1. Hepatorenal syndrome. 2. Toxic and metabolic encephalopathy. 3. Urinary tract infection with sepsis. 4. Hypotension/shock. 5. Cirrhosis. 6. Acute myocardial ischemia. PLAN: 1. Volume support. 2. Antimicrobials. 3. Central venous access and albumin trial. 4. Transfuse for low hemoglobin level. 5. Avoid anti-platelet drugs. Evan Fisher M.D. DR: EYAD JOB#: [id number] CC:
[2016-09-14 06:46] LABS: ANION GAP 18 (5-15); CALCIUM 7.1 mg/dL (8.6-10.2); CARBON DIOXIDE 16 mEQ/L (20-30); CHLORIDE 94 mEQ/L (98-107); CREATININE 3.8 mg/dL (0.5-0.9); HEMOLYSIS 6; SODIUM 128 mEQ/L (135-145)
[2016-09-14 06:59] LABS: MEAN CORPUSCULAR HGB CONC 32.7 G/DL (32.0-36.0); MEAN CORPUSCULAR VOLUME 101 FL (80-99); MEAN PLATELET VOLUME 9.6 FL (6.5-10.1); PLATELET COUNT 16 K/UL (150-450); RED BLOOD COUNT 2.93 M/UL (4.20-5.40); RED CELL DISTRIBUTION WIDTH 22.6 % (11.6-14.8)
[2016-09-14] MEDS: Metoprolol Tartrate 12.5mg TAB ORAL SCH ×2 (09:00→20:16)
[2016-09-14] MEDS: Midodrine 10mg tab ORAL SCH ×3 (09:02→18:04)
[2016-09-14] MEDS: Sucralfate 1gm tab ORAL SCH ×4 (09:02→20:17)
[2016-09-14] MEDS: Rifaximin 550mg tab ORAL SCH ×2 (09:02→20:16)
[2016-09-14] MEDS: Lactulose 20gm/30ml UDC ORAL SCH ×3 (09:02→18:04)
[2016-09-14] MEDS: cefTRIAXone 1 GM in D5W 55 ML IVPB SCH (09:03)
[2016-09-14 10:10] LABS: ANISOCYTOSIS 2+; BAND NEUTROPHILS % (MANUAL) 0 % (0-8); BASOPHILS % (MANUAL) 0 % (0-2); EOSINOPHILS % (MANUAL) 1 % (0-3); HYPOCHROMASIA 1+; LYMPHOCYTES % (MANUAL) 6 % (20-45); MACROCYTES 1+; NEUTROPHILS % (MANUAL) 75 % (45-75); PLATELET ESTIMATE DECREASED; PLATELET MORPHOLOGY NORMAL; TOTAL CELLS COUNTED 100
--- NOTE | 2016-09-14 10:15 | Cardiology Report ---
APPROVED REPORT EXAM: Two-dimensional and M-mode echocardiogram with Doppler and color Doppler. INDICATION CAD 2D DIMENSIONS LVDs3 (2.5-4.0cm) M-Mode DIMENSIONS IVSd1.2 (0.7-1.1cm)Left Atrium (MM)5.4 (1.6-4.0cm) LVDd5.9 (3.5-5.6cm)Aortic Root3.0 (2.0-3.7cm) PWd1.2 (0.7-1.1cm)Aortic Cusp Exc.1.9 (1.5-2.0cm) LVDs3.9 (2.5-4.0cm) PWs1.8 cm Technically difficult study due to pts breathing. Normal left ventricular chamber size, systolic function and wall motion to extent visualized. Left ventricular ejection fraction estimated to be 65%. Concentric left ventricular hypertrophy. No evidence of pericardial effusion. Anterior Echo-free space, may be due to pericardial fat or effusion. Left atrial size at upper limits of normal. Right cardiac chamber sizes are within normal limits. Focal aortic valve sclerosis with adequate cusp excursion.. Mitral annulus and aortic root calcification. Pulmonic valve not well visualized. Normal tricuspid valve structure. A color flow and spectral Doppler study was performed and revealed: No aortic regurgitation. Tissue Doppler Imaging suggest impaired relaxation diastolic dysfunction. Mitral diastolic velocities suggest. (Grade I ). Mild mitral regurgitation. Mild tricuspid regurgitation. Tricuspid systolic velocities suggests peak right ventricular systolic pressure of 28 mmHg. No Pulmonic regurgitation present.
[2016-09-14] MEDS: metroNIDAZOLE 500mg 100 ML IVPB SCH ×2 (10:51→20:18)
--- NOTE | 2016-09-14 14:45 | General Progress Note ---
Assessment/Plan Problem List: (1) Heme + stool ICD Codes: R19.5 - Other fecal abnormalities SNOMED: 19957584, 291807869 (2) Hypotension ICD Codes: I95.9 - Hypotension SNOMED: 51649338 (3) CRISTAL (acute kidney injury) ICD Codes: N17.9 - Acute kidney failure, unspecified SNOMED: 24582522 (4) Altered mental status ICD Codes: R41.82 - Altered mental status, unspecified SNOMED: 160050605 (5) UTI (lower urinary tract infection) ICD Codes: N39.0 - Urinary tract infection, site not specified SNOMED: 0379224 (6) Hepatic encephalopathy ICD Codes: K72.90 - Hepatic encephalopathy SNOMED: 69773474 (7) Cirrhosis ICD Codes: K74.60 - Cirrhosis SNOMED: 82682547 (8) Severe sepsis ICD Codes: A41.9 - Sepsis, unspecified organism; R65.20 - Severe sepsis without septic shock SNOMED: 31469819 (9) Anemia ICD Codes: D64.9 - Anemia, unspecified SNOMED: 445847873 Qualifiers: Qualified Codes: D64.9 - Anemia, unspecified (10) Thrombocytopenia ICD Codes: D69.6 - Thrombocytopenia SNOMED: 849250886 (11) Klebsiella sepsis ICD Codes: A41.4 - Sepsis due to anaerobes SNOMED: 020045188, 453498037 (12) Hepatorenal syndrome ICD Codes: K76.7 - Hepatorenal syndrome SNOMED: 71621839 (13) Pyelonephritis ICD Codes: N12 - Tubulo-interstitial nephritis, not specified as acute or chronic SNOMED: 71662079 (14) Asthma ICD Codes: J45.909 - Unspecified asthma, uncomplicated SNOMED: 118596589 (15) Thrombocytopenia ICD Codes: D69.6 - Thrombocytopenia, unspecified SNOMED: 079966606 Assessment/Plan klebsiella sepsis, ID seeing, poor prognosis with cirrhosis d/w daughter, cristal hydrate cautiously, elevated troponin, Cardiology eval appreciated, picc placed remains high risk, rising creatinine, try octreotide and spa for hrs, gi bleed slow, agrees to transfuse 5/7 , bronchospasm, start hhn, check cxr Subjective Constitutional: Reports: weakness HEENT: Reports: no symptoms Cardiovascular: Reports: no symptoms Respiratory: Reports: cough Gastrointestinal/Abdominal: Reports: no symptoms Genitourinary: Reports: incontinence Neurologic/Psychiatric: Reports: weakness Endocrine: Reports: no symptoms Hematologic/Lymphatic: Reports: anemia Allergies: Coded Allergies: PENICILLINS (Unverified Allergy, Unknown, 07/09/16) Objective Last 24 Hour Vital Signs Date Time Temp Pulse Resp B/P Pulse Ox O2 Delivery O2 Flow Rate FiO2 09/14/16 12:03 97.3 79 20 89/56 96 Nasal Cannula 2.0 09/14/16 09:15 79 88/32 09/14/16 09:00 79 88/32 09/14/16 07:49 96.7 82 19 72/48 95 Nasal Cannula 2.0 09/14/16 06:45 Nasal Cannula 2.0 09/14/16 06:45 96 Nasal Cannula 2.0 09/14/16 04:00 97.0 78 20 110/60 98 Nasal Cannula 3.0 09/14/16 00:00 96.8 76 18 111/61 98 Nasal Cannula 3.0 09/13/16 21:00 75 81/32 09/13/16 20:15 82/32 09/13/16 20:00 96.9 77 20 72/31 96 Nasal Cannula 3.0 09/13/16 15:36 98.6 74 21 96/52 96 Nasal Cannula 2.0 Intake and Output 09/13/16 09/14/16 19:00 07:00 Intake Total 675 ml 850 ml Balance 675 ml 850 ml Intake Oral 320 ml IV Total 355 ml 350 ml Blood Product 500 ml # Voids 4 2 # Bowel Movements 5 Laboratory Tests 09/14/16 06:00: White Blood Count 5.0, Red Blood Count 2.93L, Hemoglobin 9.7L, Hematocrit 29.5L , Mean Corpuscular Volume 101H, Mean Corpuscular Hemoglobin 33.0H, Mean Corpuscular Hemoglobin Concent 32.7, Red Cell Distribution Width 22.6H, Platelet Count 16L, Mean Platelet Volume 9.6, Neutrophils (%) (Auto) , Lymphocytes (%) (Auto) , Monocytes (%) (Auto) , Eosinophils (%) (Auto) , Basophils (%) (Auto) , Differential Total Cells Counted 100, Neutrophils % ( Manual) 75, Lymphocytes % (Manual) 6L, Monocytes % (Manual) 18H, Eosinophils % ( Manual) 1, Basophils % (Manual) 0, Band Neutrophils 0, Platelet Estimate DecreasedL, Platelet Morphology Normal, Hypochromasia 1+, Anisocytosis 2+, Macrocytosis 1+, Sodium Level 128L, Potassium Level 5.0H, Chloride Level 94L, Carbon Dioxide Level 16L, Anion Gap 18H, Blood Urea Nitrogen 62H, Creatinine 3.8H, Estimat Glomerular Filtration Rate , Glucose Level 126H, Calcium Level 7.1L Height (Feet): 5 Height (Inches): 3.00 Weight (Pounds): 167 General Appearance: no apparent distress, alert EENT: other - icteric Neck: non-tender Cardiovascular: regular rhythm Respiratory/Chest: expiratory wheezing Abdomen: non tender Edema: trace edema 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
--- NOTE | 2016-09-14 15:06 | Infectious Diseases Prog Note ---
Assessment/Plan Assessment/Plan ASSESSMENT AND PLAN: 1. klebsiella uti/pyelonephritis with klebsiella bacteremia, sepsis, leukocytosis, fevers, colitis on ct, ? c.diff., ? peritonitis - leukocytosis resolved, fevers resolved - continue rocephin and flagyl for one week then transition to oral abx for one week - surveillance blood cultures negative - d/w Dr. Edward 2. hx cirrhosis, cryptogenic cirrhosis, nonalcoholic cirrhosis. 3. History of ascites and multiple paracentesis per the records. 4. The patient may need further paracentesis with ascites seen on CT scan. Consider Gastroenterology evaluation . 5. Anemia. 6. Elevated creatinine 7. Hypernatremia. 8. Myocardial infarction. Myocardial ischemia. 9. Hyperlipidemia. 10. No history of diabetes or hypertension. 11. Thrombocytopenia. 12. Left bundle-branch block. 13. History of lower extremity cellulitis status post antibiotics. 14. History of gynecologic surgery with possible cervical and ovarian cancer. 15. Continue primary consultants 16. records reviewed 17. Notes were reviewed. 18. Social history is negative. 19. Family history is noncontributory. 20. MAR is noted. 21. Case discussed with RN. 22. Allergies are penicillin and tolerated cephalosporins. Subjective Constitutional: Denies: fever HEENT: Denies: congestion Respiratory: Denies: shortness of breath Cardiovascular: Denies: chest pain Gastrointestinal/Abdominal: Denies: diarrhea, nausea, vomiting Genitourinary: Reports: other - no valdez Neurologic: Denies: headache Psychiatric: Denies: anxiety Hematologic: Denies: bleeding Musculoskeletal: Denies: pain Allergies: Coded Allergies: PENICILLINS (Unverified Allergy, Unknown, 07/09/16) Objective Vital Signs Last 24 Hour Vital Signs Date Time Temp Pulse Resp B/P Pulse Ox O2 Delivery O2 Flow Rate FiO2 09/14/16 12:03 97.3 79 20 89/56 96 Nasal Cannula 2.0 09/14/16 09:15 79 88/32 09/14/16 09:00 79 88/32 09/14/16 07:49 96.7 82 19 72/48 95 Nasal Cannula 2.0 09/14/16 06:45 Nasal Cannula 2.0 09/14/16 06:45 96 Nasal Cannula 2.0 09/14/16 04:00 97.0 78 20 110/60 98 Nasal Cannula 3.0 09/14/16 00:00 96.8 76 18 111/61 98 Nasal Cannula 3.0 09/13/16 21:00 75 81/32 09/13/16 20:15 82/32 09/13/16 20:00 96.9 77 20 72/31 96 Nasal Cannula 3.0 09/13/16 15:36 98.6 74 21 96/52 96 Nasal Cannula 2.0 Height (Feet): 5 Height (Inches): 3.00 Weight (Pounds): 167 General Appearance: no acute distress HEENT: normocephalic, atraumatic, anicteric, mucous membranes moist, PERRL, EOMI, pharynx normal, supple, no JVD Respiratory/Chest: lungs clear, normal breath sounds, no respiratory distress, no accessory muscle use, decreased breath sounds Cardiovascular: normal rate, regular rhythm, regularly irregular, no gallop/ murmur Abdomen: normal bowel sounds, soft, non tender, no organomegaly, non distended Genitourinary: other - n o valdez Extremities: no cyanosis Skin: no rash 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 Note nonvisualization of the gallbladder described on recent ultrasound was probably due to gallbladder contraction Diverticulosis. No evidence of diverticulitis Extensive edema of the anterior abdominal wall soft tissues. This is a new finding Multiple bilateral rib fractures in various stages of healing, one or more appearing acute Cardiomegaly Incidental findings as noted, including L4 on L5 spondylolysis, osteoporosis, right hip degenerative changes, granulomatous calcification within the spleen, left renal lower pole cyst, prior hysterectomy, bibasilar pulmonary scarring/atelectasis This agrees with the preliminary interpretation provided overnight by [facility] teleradiology service. The CT scanner at [facility] is accredited by the [employer] and the scans are performed using protocols designed to limit radiation e -- xposure to as low as reasonably achievable to attain images of sufficient Microbiology Date/Time Source Procedure Growth Status 09/11/16 10:00 Blood Blood Culture - Preliminary NO GROWTH AFTER 48 HOURS Resulted 09/09/16 04:00 Nasal Nares MRSA Culture - Final NO METHICILLIN RESISTANT STAPH AUREUS... Complete 09/12/16 12:30 Straight Cath Urine Culture - Preliminary Resulted 09/09/16 04:00 Rectum VRE Culture - Final Enterococcus Faecium - Vre Complete Microbiology Date/Time Source Procedure Growth Status 09/12/16 12:30 Straight Cath Urine Culture - Preliminary Resulted Laboratory Tests Test 09/14/16 06:00 White Blood Count 5.0 K/UL (4.8-10.8) Red Blood Count 2.93 M/UL (4.20-5.40) L Hemoglobin 9.7 G/DL (12.0-16.0) L Hematocrit 29.5 % (37.0-47.0) L Mean Corpuscular Volume 101 FL (80-99) H Mean Corpuscular Hemoglobin 33.0 PG (27.0-31.0) H Mean Corpuscular Hemoglobin Concent 32.7 G/DL (32.0-36.0) Red Cell Distribution Width 22.6 % (11.6-14.8) H Platelet Count 16 K/UL (150-450) L Mean Platelet Volume 9.6 FL (6.5-10.1) Neutrophils (%) (Auto) % (45.0-75.0) Lymphocytes (%) (Auto) % (20.0-45.0) Monocytes (%) (Auto) % (1.0-10.0) Eosinophils (%) (Auto) % (0.0-3.0) Basophils (%) (Auto) % (0.0-2.0) Differential Total Cells Counted 100 Neutrophils % (Manual) 75 % (45-75) Lymphocytes % (Manual) 6 % (20-45) L Monocytes % (Manual) 18 % (1-10) H Eosinophils % (Manual) 1 % (0-3) Basophils % (Manual) 0 % (0-2) Band Neutrophils 0 % (0-8) Platelet Estimate Decreased L Platelet Morphology Normal Hypochromasia 1+ Anisocytosis 2+ Macrocytosis 1+ Sodium Level 128 mEQ/L (135-145) L Potassium Level 5.0 mEQ/L (3.4-4.9) H Chloride Level 94 mEQ/L (98-107) L Carbon Dioxide Level 16 mEQ/L (20-30) L Anion Gap 18 (5-15) H Blood Urea Nitrogen 62 mg/dL (7-23) H Creatinine 3.8 mg/dL (0.5-0.9) H Estimat Glomerular Filtration Rate mL/min (>60) Glucose Level 126 mg/dL (74-106) H Calcium Level 7.1 mg/dL (8.6-10.2) L Current Medications Medications (Trade) Dose Ordered Sig/Raman Route PRN Reason Start Time Stop Time Status Last Admin Dose Admin Acetaminophen (Tylenol) 650 mg Q4H PRN ORAL Mild Pain/Temp > 100.5 09/11/16 21:45 10/11/16 21:44 Albumin Human (Albumisol) 100 ml @ 0 mls/hr PRN PRN IV LOW BP DURING DIALYSIS 09/14/16 15:00 10/14/16 14:59 Albuterol Sulfate (Proventil) 2.5 mg Q4HRT HHN 09/14/16 15:00 09/19/16 14:59 Ceftriaxone Sodium 1 gm/ Dextrose 55 ml @ 110 mls/hr Q24H IVPB 09/12/16 09:00 09/16/16 08:59 09/14/16 09:03 Lactulose (Cephulac) 10 gm TID ORAL 09/13/16 13:00 10/13/16 12:59 09/14/16 13:38 Metoprolol Tartrate (Lopressor) 12.5 mg Q12HR ORAL 09/11/16 21:00 10/11/16 20:59 Metronidazole (Flagyl) 100 ml @ 100 mls/hr Q12HR IVPB 09/11/16 21:00 09/17/16 20:59 09/14/16 10:51 Midodrine (Pro-Amatine) 10 mg THREE TIMES A DAY ORAL 09/12/16 09:00 10/12/16 08:59 09/14/16 13:37 Multivitamins (Multivitamins) 1 tab DAILY ORAL 09/12/16 09:00 10/12/16 08:59 09/14/16 09:02 Octreotide Acetate 100 mcg 100 mcg Q6HR IV 09/15/16 06:00 10/15/16 05:59 Octreotide Acetate (SandoSTATIN) 100 mcg Q6H SUBQ 09/12/16 12:30 09/15/16 01:30 09/14/16 13:40 Ondansetron HCl (Zofran) 4 mg Q4H PRN IVP Nausea & Vomiting 09/11/16 21:45 10/11/16 21:44 09/14/16 05:28 Pantoprazole (Protonix) 40 mg BID ORAL 09/12/16 09:00 10/12/16 08:59 09/14/16 09:02 Rifaximin (Xifaxan) 550 mg EVERY 12 HOURS ORAL 09/11/16 21:00 09/18/16 20:59 09/14/16 09:02 Sucralfate (Carafate) 1 gm FOUR TIMES A DAY ORAL 09/13/16 13:00 10/13/16 12:59 09/14/16 13:37 LESLEY KIM September 14, 2016 15:06
[2016-09-14] MEDS: SandoSTATIN 100mcg/ml amp SUBQ SCH ×2 (18:12→23:49)
--- NOTE | 2016-09-14 19:00 | Cardiology Report ---
APPROVED REPORT EKG Measurement Heart [id number] Normal sinus rhythm Left bundle branch block Abnormal ECG
[2016-09-14] MEDS: Albuterol ud Inhalation HHN SCH ×3 (19:19→23:41)
[2016-09-15] VITALS (7 sets, daily range): BP systolic 85–122; BP diastolic 34–68
--- NOTE | 2016-09-15 00:19 | Progress Note ---
DATE: 09/14/2016 CARDIOLOGY PROGRESS NOTE SUBJECTIVE: The patient remains on IV fluids. She continues with antibiotics. PICC line in place for central venous access. The patient is status post transfusion yesterday a packed red blood cells. Today, the patient has congestion and wheezing. OBJECTIVE: VITAL SIGNS: Blood pressure 89/56, pulse 79, respirations 20, and afebrile. HEENT: Anicteric. LUNGS: Clear. CARDIAC: Regular. Normal S1 and S2. Frequent ectopic beats. ABDOMEN: Soft. EXTREMITIES: Mild ascites. Trace dependent edema. LABORATORY DATA: White count 5 and hemoglobin 9.7. Sodium 128, potassium 5.0, bicarbonate 18, BUN 62 and creatinine 3.8. IMPRESSION: 1. Sepsis. 2. Shock. 3. Klebsiella bacteremia. 4. Klebsiella urinary tract infection. 5. Ascites. 6. Anemia requiring transfusions. 7. Acute and chronic diastolic congestive heart failure. 8. Hepatorenal syndrome with worsening renal parameters. 9. Paroxysmal bronchospasm. PLAN: 1. Check chest x-ray. 2. Continue antimicrobials. 3. Discontinue IV fluids. 4. Cautious use of beta-yves. 5. Remains high risk with poor prognosis. Evan Fisher M.D. DR: EYAD JOB#: [id number] CC:
[2016-09-15] MEDS: Albuterol ud Inhalation HHN SCH ×6 (03:30→22:34)
[2016-09-15 05:06] LABS: MEAN CORPUSCULAR HEMOGLOBIN 32.9 PG (27.0-31.0); MEAN CORPUSCULAR HGB CONC 32.5 G/DL (32.0-36.0); MEAN CORPUSCULAR VOLUME 101 FL (80-99); MEAN PLATELET VOLUME 12.4 FL (6.5-10.1); PLATELET COUNT 19 K/UL (150-450); RED BLOOD COUNT 3.05 M/UL (4.20-5.40); RED CELL DISTRIBUTION WIDTH 22.1 % (11.6-14.8); WHITE BLOOD COUNT 5.7 K/UL (4.8-10.8)
[2016-09-15 05:20] LABS: PROTHROMBIN TIME 21.1 SEC (9.30-11.50)
[2016-09-15 05:21] LABS: ALANINE AMINOTRANSFERASE 47 U/L (3-33); ANION GAP 19 (5-15); ASPARTATE AMINO TRANSFERASE 81 U/L (5-40); CALCIUM 7.3 mg/dL (8.6-10.2); CARBON DIOXIDE 16 mEQ/L (20-30); CHLORIDE 93 mEQ/L (98-107); CREATININE 3.9 mg/dL (0.5-0.9); HEMOLYSIS 1; POTASSIUM 4.9 mEQ/L (3.4-4.9); SODIUM 128 mEQ/L (135-145); TOTAL PROTEIN 4.8 g/dL (6.6-8.7)
[2016-09-15 05:45] LABS: AMMONIA 12 umol/L (11-51)
[2016-09-15 05:52] LABS: BILIRUBIN,DIRECT 6.8 mg/dL (0.1-0.3)
[2016-09-15 06:19] LABS: BAND NEUTROPHILS % (MANUAL) 3 % (0-8); BASOPHILS % (MANUAL) 0 % (0-2); EOSINOPHILS % (MANUAL) 2 % (0-3); LYMPHOCYTES % (MANUAL) 13 % (20-45); NEUTROPHILS % (MANUAL) 82 % (45-75); PLATELET ESTIMATE DECREASED; TOTAL CELLS COUNTED 100
[2016-09-15 06:20] LABS: ANISOCYTOSIS 1+; CRENATED RBC 2+; PLATELET MORPHOLOGY NORMAL; POIKILOCYTOSIS 1+
[2016-09-15] MEDS: SandoSTATIN 100mcg/ml amp IV SCH ×4 (06:33→23:33)
--- NOTE | 2016-09-15 08:20 | Diagnostic Imaging Report ---
Indications: COUGH Technique: Portable AP chest Findings: Comparison: 09/10/2016 Inspiratory effort has decreased. Linear and patchy opacities have increased in the left lung base, now obscuring the left costophrenic angle. Interstitial markings appear to have mildly increased bilaterally. Cardiac silhouette partially obscured, may be enlarged. Mild pulmonary vascular redistribution suggested. No right pleural abnormality detected. PICC has been placed, tip in region of superior vena cava. IMPRESSION: Increase in left basal subsegmental atelectasis. Development of apparent mild bilateral congestive changes with possible left pleural effusion, may to an extent be due to poor inspiration. 2 pulmonary edema and left pleural effusion Interval PICC placement
[2016-09-15] MEDS: Metoprolol Tartrate 12.5mg TAB ORAL SCH ×2 (09:00→21:00)
[2016-09-15] MEDS: cefTRIAXone 1 GM in D5W 55 ML IVPB SCH (09:26)
[2016-09-15] MEDS: Sucralfate 1gm tab ORAL SCH ×4 (09:58→21:00)
[2016-09-15] MEDS: Lactulose 20gm/30ml UDC ORAL SCH ×3 (10:00→18:00)
[2016-09-15] MEDS: Midodrine 10mg tab ORAL SCH ×3 (10:03→18:00)
[2016-09-15] MEDS: Rifaximin 550mg tab ORAL SCH ×2 (10:05→21:00)
[2016-09-15] MEDS: metroNIDAZOLE 500mg 100 ML IVPB SCH (11:00)
--- NOTE | 2016-09-15 12:09 | Infectious Diseases Prog Note ---
Assessment/Plan Assessment/Plan ASSESSMENT AND PLAN: 1. klebsiella uti/pyelonephritis with klebsiella bacteremia, sepsis, leukocytosis, fevers, colitis on ct, ? c.diff., ? peritonitis, jaime, hyponatremia - leukocytosis resolved, fevers resolved - continue rocephin and flagyl for 6 days more - surveillance blood cultures negative - still wit significantly elevated creatinine 2. hx cirrhosis, cryptogenic cirrhosis, nonalcoholic cirrhosis. 3. History of ascites and multiple paracentesis per the records. 4. patient may need paracentesis for ascites 5. Anemia. 6. Elevated creatinine 7. Hypernatremia. 8. Myocardial infarction. Myocardial ischemia. 9. Hyperlipidemia. 10. No history of diabetes or hypertension. 11. Thrombocytopenia. 12. Left bundle-branch block. 13. History of lower extremity cellulitis status post antibiotics. 14. History of gynecologic surgery with possible cervical and ovarian cancer. 15. Continue primary consultants 16. records reviewed 17. Notes were reviewed. 18. Social history is negative. 19. Family history is noncontributory. 20. MAR is noted. 21. Case discussed with RN. 22. Allergies are penicillin and tolerated cephalosporins. 23. d/w family at bedside Subjective Constitutional: Reports: fatigue, Denies: fever HEENT: Denies: congestion Respiratory: Reports: other - mild respiratory discomfort likely secondary to abdominal distension, Denies: shortness of breath Cardiovascular: Denies: chest pain Gastrointestinal/Abdominal: Denies: diarrhea, nausea, vomiting Genitourinary: Reports: other - no valdez Neurologic: Denies: headache Psychiatric: Denies: depression Skin: Denies: rash Hematologic: Denies: bleeding Musculoskeletal: Denies: pain Allergies: Coded Allergies: PENICILLINS (Unverified Allergy, Unknown, 07/09/16) Objective Vital Signs Last 24 Hour Vital Signs Date Time Temp Pulse Resp B/P Pulse Ox O2 Delivery O2 Flow Rate FiO2 09/15/16 09:00 82 92/47 09/15/16 07:57 97.9 83 21 109/51 97 Nasal Cannula 2.0 09/15/16 07:18 85 18 98 Nasal Cannula 2.0 28 09/15/16 07:08 Nasal Cannula 3.0 32 09/15/16 07:08 83 18 96 Nasal Cannula 3.0 32 09/15/16 07:08 96 Nasal Cannula 3.0 32 09/15/16 04:00 97.0 77 20 122/68 97 Nasal Cannula 4.0 09/15/16 03:51 80 18 98 Nasal Cannula 2.0 28 09/15/16 03:30 69 18 95 Nasal Cannula 2.0 28 09/15/16 00:00 97.0 82 18 115/58 96 Nasal Cannula 4.0 09/14/16 23:54 81 18 98 Nasal Cannula 2.0 28 09/14/16 23:28 76 18 97 Nasal Cannula 2.0 28 09/14/16 20:16 76 86/47 09/14/16 20:00 96.4 84 18 102/50 97 Nasal Cannula 09/14/16 19:38 78 18 98 Nasal Cannula 2.0 28 09/14/16 19:23 74 18 95 Nasal Cannula 2.0 28 09/14/16 19:20 96 Nasal Cannula 2.0 09/14/16 19:20 Nasal Cannula 2.0 09/14/16 19:00 84 18 Nasal Cannula 2.0 28 09/14/16 15:47 98.4 76 22 86/47 97 Nasal Cannula 2.0 Height (Feet): 5 Height (Inches): 3.00 Weight (Pounds): 167 General Appearance: no acute distress HEENT: normocephalic, atraumatic, mucous membranes moist, PERRL, EOMI, supple, no JVD, other - + icterus Respiratory/Chest: lungs clear, normal breath sounds, no respiratory distress, no accessory muscle use Cardiovascular: normal rate, regular rhythm, no gallop/murmur, no JVD Abdomen: normal bowel sounds, distended Genitourinary: other - no valdez Extremities: no cyanosis Skin: no rash 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 Note nonvisualization of the gallbladder described on recent ultrasound was probably due to gallbladder contraction Diverticulosis. No evidence of diverticulitis Extensive edema of the anterior abdominal wall soft tissues. This is a new finding Multiple bilateral rib fractures in various stages of healing, one or more appearing acute Cardiomegaly Incidental findings as noted, including L4 on L5 spondylolysis, osteoporosis, right hip degenerative changes, granulomatous calcification within the spleen, left renal lower pole cyst, prior hysterectomy, bibasilar pulmonary scarring/atelectasis This agrees with the preliminary interpretation provided overnight by [facility] telerad[facility] service. The CT scanner at [facility] is accredited by the [employer] and the scans are performed using protocols designed to limit radiation e -- xposure to as low as reasonably achievable to attain images of sufficient Microbiology Date/Time Source Procedure Growth Status 09/12/16 12:30 Straight Cath Urine Culture - Preliminary Resulted Laboratory Tests Test 09/15/16 04:45 White Blood Count 5.7 K/UL (4.8-10.8) Red Blood Count 3.05 M/UL (4.20-5.40) L Hemoglobin 10.0 G/DL (12.0-16.0) L Hematocrit 30.9 % (37.0-47.0) L Mean Corpuscular Volume 101 FL (80-99) H Mean Corpuscular Hemoglobin 32.9 PG (27.0-31.0) H Mean Corpuscular Hemoglobin Concent 32.5 G/DL (32.0-36.0) Red Cell Distribution Width 22.1 % (11.6-14.8) H Platelet Count 19 K/UL (150-450) L Mean Platelet Volume 12.4 FL (6.5-10.1) H Neutrophils (%) (Auto) % (45.0-75.0) Lymphocytes (%) (Auto) % (20.0-45.0) Monocytes (%) (Auto) % (1.0-10.0) Eosinophils (%) (Auto) % (0.0-3.0) Basophils (%) (Auto) % (0.0-2.0) Differential Total Cells Counted 100 Neutrophils % (Manual) 82 % (45-75) H Lymphocytes % (Manual) 13 % (20-45) L Monocytes % (Manual) 0 % (1-10) L Eosinophils % (Manual) 2 % (0-3) Basophils % (Manual) 0 % (0-2) Band Neutrophils 3 % (0-8) Platelet Estimate Decreased L Platelet Morphology Normal Poikilocytosis 1+ Anisocytosis 1+ Crenated Cell 2+ Prothrombin Time 21.1 SEC (9.30-11.50) H Prothromb Time International Ratio 2.0 (0.9-1.1) H Sodium Level 128 mEQ/L (135-145) L Potassium Level 4.9 mEQ/L (3.4-4.9) Chloride Level 93 mEQ/L (98-107) L Carbon Dioxide Level 16 mEQ/L (20-30) L Anion Gap 19 (5-15) H Blood Urea Nitrogen 63 mg/dL (7-23) H Creatinine 3.9 mg/dL (0.5-0.9) H Estimat Glomerular Filtration Rate mL/min (>60) Glucose Level 84 mg/dL (74-106) Calcium Level 7.3 mg/dL (8.6-10.2) L Total Bilirubin 11.2 mg/dL (0.0-1.2) H Direct Bilirubin 6.8 mg/dL (0.1-0.3) H Aspartate Amino Transf (AST/SGOT) 81 U/L (5-40) H Alanine Aminotransferase (ALT/SGPT) 47 U/L (3-33) H Alkaline Phosphatase 204 U/L (35-104) H Ammonia 12 umol/L (11-51) Total Protein 4.8 g/dL (6.6-8.7) L Albumin 2.4 g/dL (3.5-5.2) L Globulin 2.4 g/dL Albumin/Globulin Ratio 1.0 (1.0-2.7) Current Medications Medications (Trade) Dose Ordered Sig/Raman Route PRN Reason Start Time Stop Time Status Last Admin Dose Admin Acetaminophen (Tylenol) 650 mg Q4H PRN ORAL Mild Pain/Temp > 100.5 09/11/16 21:45 10/11/16 21:44 Albumin Human (Albumisol) 100 ml @ 0 mls/hr PRN PRN IV LOW BP DURING DIALYSIS 09/14/16 15:00 10/14/16 14:59 Albuterol Sulfate 2.5 mg 2.5 mg Q4HRT HHN 09/14/16 15:00 09/19/16 14:59 09/15/16 10:50 Ceftriaxone Sodium 1 gm/ Dextrose 55 ml @ 110 mls/hr Q24H IVPB 09/15/16 09:00 09/18/16 23:59 09/15/16 09:26 Lactulose (Cephulac) 10 gm TID ORAL 09/13/16 13:00 10/13/16 12:59 09/15/16 10:00 Metoprolol Tartrate (Lopressor) 12.5 mg Q12HR ORAL 09/11/16 21:00 10/11/16 20:59 Metronidazole (Flagyl) 100 ml @ 100 mls/hr Q12HR IVPB 09/14/16 21:00 09/20/16 23:59 09/15/16 11:00 Midodrine (Pro-Amatine) 10 mg THREE TIMES A DAY ORAL 09/12/16 09:00 10/12/16 08:59 09/15/16 10:03 Multivitamins (Multivitamins) 1 tab DAILY ORAL 09/12/16 09:00 10/12/16 08:59 09/15/16 10:01 Octreotide Acetate 100 mcg 100 mcg Q6HR IV 09/15/16 06:00 10/15/16 05:59 09/15/16 06:33 Ondansetron HCl (Zofran) 4 mg Q4H PRN IVP Nausea & Vomiting 09/11/16 21:45 10/11/16 21:44 09/15/16 09:31 Pantoprazole (Protonix) 40 mg BID ORAL 09/12/16 09:00 10/12/16 08:59 09/15/16 10:04 Rifaximin (Xifaxan) 550 mg EVERY 12 HOURS ORAL 09/11/16 21:00 09/18/16 20:59 09/15/16 10:05 Sucralfate (Carafate) 1 gm FOUR TIMES A DAY ORAL 09/13/16 13:00 10/13/16 12:59 09/15/16 09:58 LESLEY KIM September 15, 2016 12:09
--- NOTE | 2016-09-15 17:47 | General Progress Note ---
Assessment/Plan Problem List: (1) Heme + stool ICD Codes: R19.5 - Other fecal abnormalities SNOMED: 77383350, 815249957 (2) Hypotension ICD Codes: I95.9 - Hypotension SNOMED: 81999307 (3) CRISTAL (acute kidney injury) ICD Codes: N17.9 - Acute kidney failure, unspecified SNOMED: 08810110 (4) Altered mental status ICD Codes: R41.82 - Altered mental status, unspecified SNOMED: 646915497 (5) UTI (lower urinary tract infection) ICD Codes: N39.0 - Urinary tract infection, site not specified SNOMED: 6755823 (6) Hepatic encephalopathy ICD Codes: K72.90 - Hepatic encephalopathy SNOMED: 80919431 (7) Cirrhosis ICD Codes: K74.60 - Cirrhosis SNOMED: 10774473 (8) Severe sepsis ICD Codes: A41.9 - Sepsis, unspecified organism; R65.20 - Severe sepsis without septic shock SNOMED: 38251558 (9) Anemia ICD Codes: D64.9 - Anemia, unspecified SNOMED: 669595818 Qualifiers: Qualified Codes: D64.9 - Anemia, unspecified (10) Thrombocytopenia ICD Codes: D69.6 - Thrombocytopenia SNOMED: 337088412 (11) Klebsiella sepsis ICD Codes: A41.4 - Sepsis due to anaerobes SNOMED: 987135961, 890152245 (12) Hepatorenal syndrome ICD Codes: K76.7 - Hepatorenal syndrome SNOMED: 46162349 (13) Pyelonephritis ICD Codes: N12 - Tubulo-interstitial nephritis, not specified as acute or chronic SNOMED: 74018776 (14) Asthma ICD Codes: J45.909 - Unspecified asthma, uncomplicated SNOMED: 586744520 (15) Thrombocytopenia ICD Codes: D69.6 - Thrombocytopenia, unspecified SNOMED: 856385046 Assessment/Plan klebsiella sepsis, ID seeing, poor prognosis with cirrhosis d/w daughter, cristal hydrate cautiously, elevated troponin, Cardiology eval appreciated, picc placed remains high risk, rising creatinine, try octreotide and spa for hrs, gi bleed slow, agrees to transfuse 5/7 , bronchospasm, start hhn, check cxr, still no improvement creatinine, platelets lower, high risk, family aware Subjective Constitutional: Reports: weakness HEENT: Reports: no symptoms Cardiovascular: Reports: no symptoms Respiratory: Reports: wheezing Gastrointestinal/Abdominal: Reports: nausea Genitourinary: Reports: incontinence Neurologic/Psychiatric: Reports: weakness Endocrine: Reports: no symptoms Hematologic/Lymphatic: Reports: anemia Allergies: Coded Allergies: PENICILLINS (Unverified Allergy, Unknown, 07/09/16) Objective Last 24 Hour Vital Signs Date Time Temp Pulse Resp B/P Pulse Ox O2 Delivery O2 Flow Rate FiO2 09/15/16 15:38 97.6 82 21 99/52 96 Nasal Cannula 2.0 09/15/16 14:56 84 18 98 Nasal Cannula 2.0 28 09/15/16 14:46 81 18 96 Nasal Cannula 3.0 32 09/15/16 12:15 97.8 83 21 99/47 96 Nasal Cannula 2.0 09/15/16 11:00 86 18 98 Nasal Cannula 2.0 28 09/15/16 10:50 84 18 96 Nasal Cannula 3.0 32 09/15/16 09:00 82 92/47 09/15/16 07:57 97.9 83 21 109/51 97 Nasal Cannula 2.0 09/15/16 07:18 85 18 98 Nasal Cannula 2.0 28 09/15/16 07:08 Nasal Cannula 3.0 32 09/15/16 07:08 83 18 96 Nasal Cannula 3.0 32 09/15/16 07:08 96 Nasal Cannula 3.0 32 09/15/16 04:00 97.0 77 20 122/68 97 Nasal Cannula 4.0 09/15/16 03:51 80 18 98 Nasal Cannula 2.0 28 09/15/16 03:30 69 18 95 Nasal Cannula 2.0 28 09/15/16 00:00 97.0 82 18 115/58 96 Nasal Cannula 4.0 09/14/16 23:54 81 18 98 Nasal Cannula 2.0 28 09/14/16 23:28 76 18 97 Nasal Cannula 2.0 28 09/14/16 20:16 76 86/47 09/14/16 20:00 96.4 84 18 102/50 97 Nasal Cannula 09/14/16 19:38 78 18 98 Nasal Cannula 2.0 28 09/14/16 19:23 74 18 95 Nasal Cannula 2.0 28 09/14/16 19:20 96 Nasal Cannula 2.0 09/14/16 19:20 Nasal Cannula 2.0 09/14/16 19:00 84 18 Nasal Cannula 2.0 28 Bad tableLaboratory Tests 09/15/16 04:45: White Blood Count 5.7, Red Blood Count 3.05L, Hemoglobin 10.0L, Hematocrit 30.9L , Mean Corpuscular Volume 101H, Mean Corpuscular Hemoglobin 32.9H, Mean Corpuscular Hemoglobin Concent 32.5, Red Cell Distribution Width 22.1H, Platelet Count 19L, Mean Platelet Volume 12.4H, Neutrophils (%) (Auto) , Lymphocytes (%) (Auto) , Monocytes (%) (Auto) , Eosinophils (%) (Auto) , Basophils (%) (Auto) , Differential Total Cells Counted 100, Neutrophils % ( Manual) 82H, Lymphocytes % (Manual) 13L, Monocytes % (Manual) 0L, Eosinophils % (Manual) 2, Basophils % (Manual) 0, Band Neutrophils 3, Platelet Estimate DecreasedL, Platelet Morphology Normal, Poikilocytosis 1+, Anisocytosis 1+, Crenated Cell 2+, Prothrombin Time 21.1H, Prothromb Time International Ratio 2.0H, Sodium Level 128L, Potassium Level 4.9, Chloride Level 93L, Carbon Dioxide Level 16L, Anion Gap 19H, Blood Urea Nitrogen 63H, Creatinine 3.9H, Estimat Glomerular Filtration Rate , Glucose Level 84, Calcium Level 7.3L, Total Bilirubin 11.2H, Direct Bilirubin 6.8H, Aspartate Amino Transf (AST/SGOT) 81H, Alanine Aminotransferase (ALT/SGPT) 47H, Alkaline Phosphatase 204H, Ammonia 12, Total Protein 4.8L, Albumin 2.4L, Globulin 2.4, Albumin/Globulin Ratio 1.0 Height (Feet): 5 Height (Inches): 3.00 Weight (Pounds): 167 General Appearance: mild distress EENT: other - icteric Neck: normal alignment Cardiovascular: normal rate Respiratory/Chest: lungs clear Abdomen: distended Edema: mild edema 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
[2016-09-15] MEDS: metroNIDAZOLE 500mg tab ORAL SCH (21:00)
[2016-09-16] MEDS: Albuterol ud Inhalation HHN SCH ×4 (03:00→15:12)
[2016-09-16 04:28] VITALS: BP 77/36
[2016-09-16 06:00] VITALS: BP 82/34
[2016-09-16] MEDS: SandoSTATIN 100mcg/ml amp IV SCH ×2 (06:07→12:25)
--- NOTE | 2016-09-16 06:19 | Progress Note ---
DATE: 09/15/2016 CARDIOLOGY PROGRESS NOTE: SUBJECTIVE: The patient continued to have worsening renal function and tenuous blood pressure readings. She remains on IV antibiotics. OBJECTIVE: VITAL SIGNS: Blood pressure 99/52, pulse 82, respirations 21, and afebrile. LUNGS: Diminished breath sounds. Scattered wheezing. HEART: Regular rhythm and rate. Normal S1, S2. A 1/6 systolic murmur in the lower left sternal border. ABDOMEN: Soft. Mild ascites. EXTREMITIES: Trace edema. LABORATORY DATA: White count 5.7, hemoglobin 10. Sodium 128, potassium 4.9, bicarb 16, BUN 63, and creatinine 3.9. Albumin 3.4. Ammonia 12. IMPRESSION: 1. Bacteremia. 2. Sepsis. 3. Shock. 4. Severe protein-calorie malnutrition. 5. Anemia. 6. Ascites. 7. Metabolic acidosis. 8. Hepatorenal syndrome. 9. Acute myocardial ischemia. 10. Acute bronchospasm. PLAN: 1. Antibiotics. 2. Hydration. 3. albumin and octreotide trials. 4. Transfuse if hemoglobin less than 8 grams. 5. Respiratory hygiene. 6. Bronchodilators. 7. May end up needing dialysis. CONDITION: Condition remains serious with guarded prognosis. Evan Fisher M.D. DR: SHELDON JOB#: [id number] CC:
[2016-09-16 06:35] LABS: INR 2.2 (0.9-1.1); PROTHROMBIN TIME 22.7 SEC (9.30-11.50)
[2016-09-16 06:37] LABS: MEAN CORPUSCULAR HEMOGLOBIN 33.8 PG (27.0-31.0); MEAN CORPUSCULAR HGB CONC 32.2 G/DL (32.0-36.0); MEAN CORPUSCULAR VOLUME 105 FL (80-99); MEAN PLATELET VOLUME 8.4 FL (6.5-10.1); PLATELET COUNT 16 K/UL (150-450); RED BLOOD COUNT 2.81 M/UL (4.20-5.40); RED CELL DISTRIBUTION WIDTH 22.8 % (11.6-14.8); WHITE BLOOD COUNT 5.8 K/UL (4.8-10.8)
[2016-09-16 06:59] LABS: ALANINE AMINOTRANSFERASE 42 U/L (3-33); ALBUMIN/GLOBULIN RATIO 0.9 (1.0-2.7); ANION GAP 20 (5-15); ASPARTATE AMINO TRANSFERASE 74 U/L (5-40); CALCIUM 7.5 mg/dL (8.6-10.2); CARBON DIOXIDE 14 mEQ/L (20-30); CHLORIDE 97 mEQ/L (98-107); CREATININE 4.6 mg/dL (0.5-0.9); HEMOLYSIS 2; POTASSIUM 5.3 mEQ/L (3.4-4.9); SODIUM 131 mEQ/L (135-145); TOTAL PROTEIN 4.5 g/dL (6.6-8.7); URIC ACID 9.3 mg/dL (3.0-7.5)
[2016-09-16 07:18] LABS: BILIRUBIN,DIRECT 8.1 mg/dL (0.1-0.3)
[2016-09-16 08:00] VITALS: BP 78/32
[2016-09-16 08:50] LABS: AMMONIA 30 umol/L (11-51)
[2016-09-16] MEDS: Metoprolol Tartrate 12.5mg TAB ORAL SCH (09:00)
[2016-09-16] MEDS: metroNIDAZOLE 500mg tab ORAL SCH (09:48)
[2016-09-16] MEDS: cefTRIAXone 1 GM in D5W 55 ML IVPB SCH (09:48)
[2016-09-16] MEDS: Sucralfate 1gm tab ORAL SCH ×2 (09:48→12:25)
[2016-09-16] MEDS: Rifaximin 550mg tab ORAL SCH (09:48)
[2016-09-16] MEDS: Lactulose 20gm/30ml UDC ORAL SCH ×2 (09:48→12:26)
[2016-09-16] MEDS: Midodrine 10mg tab ORAL SCH ×2 (09:49→12:25)
[2016-09-16 10:12] LABS: ANISOCYTOSIS 3+; BAND NEUTROPHILS % (MANUAL) 0 % (0-8); BASOPHILS % (MANUAL) 2 % (0-2); EOSINOPHILS % (MANUAL) 3 % (0-3); HYPOCHROMASIA 2+; LYMPHOCYTES % (MANUAL) 7 % (20-45); MACROCYTES 1+; NEUTROPHILS % (MANUAL) 83 % (45-75); PLATELET ESTIMATE DECREASED; PLATELET MORPHOLOGY NORMAL; TOTAL CELLS COUNTED 100
[2016-09-16] MEDS ORDERED: Tubing IV Secondary IV ONE (10:41)
[2016-09-16] MEDS ORDERED: NS 275ml ONE ×2 (10:41→18:24)
[2016-09-16] MEDS ORDERED: Tubing Blood Filter IV ONE (10:41)
[2016-09-16] MEDS ORDERED: NS 550ML IV ONE (10:41)
[2016-09-16 12:00] VITALS: BP 74/36
--- NOTE | 2016-09-16 13:09 | Infectious Diseases Prog Note ---
Assessment/Plan Assessment/Plan ASSESSMENT AND PLAN: 1. klebsiella uti/pyelonephritis with klebsiella bacteremia, sepsis, leukocytosis, fevers, colitis on ct, ? c.diff., ? peritonitis, jaime, hyponatremia , thrombocytopenia, fungal uti - leukocytosis resolved, fevers resolved - continue rocephin and flagyl for 5 days - diflcuan for 5 days for fungal uti - surveillance blood cultures negative - still with significantly elevated creatinine - watch plt count closely 2. hx cirrhosis, cryptogenic cirrhosis, nonalcoholic cirrhosis. 3. History of ascites and multiple paracentesis per the records. 4. patient may need paracentesis for ascites 5. Anemia. 6. Elevated creatinine 7. Hypernatremia. 8. Myocardial infarction. Myocardial ischemia. 9. Hyperlipidemia. 10. No history of diabetes or hypertension. 11. Thrombocytopenia. 12. Left bundle-branch block. 13. History of lower extremity cellulitis status post antibiotics. 14. History of gynecologic surgery with possible cervical and ovarian cancer. 15. Continue primary consultants 16. records reviewed 17. Notes were reviewed. 18. Social history is negative. 19. Family history is noncontributory. 20. MAR is noted. 21. Case discussed with RN. 22. Allergies are penicillin and tolerated cephalosporins. 23. d/w family at bedside Subjective Constitutional: Denies: fever HEENT: Denies: congestion Respiratory: Denies: shortness of breath Cardiovascular: Denies: chest pain Gastrointestinal/Abdominal: Denies: diarrhea, nausea, vomiting Genitourinary: Reports: other - no valdez Neurologic: Denies: headache Psychiatric: Denies: depression Skin: Denies: rash Hematologic: Denies: bleeding Musculoskeletal: Denies: pain Allergies: Coded Allergies: PENICILLINS (Unverified Allergy, Unknown, 07/09/16) Objective Vital Signs Last 24 Hour Vital Signs Date Time Temp Pulse Resp B/P Pulse Ox O2 Delivery O2 Flow Rate FiO2 09/16/16 12:00 97.0 85 20 74/36 98 Nasal Cannula 3.0 09/16/16 10:57 88 20 99 Nasal Cannula 3.0 32 09/16/16 10:40 86 22 97 Nasal Cannula 3.0 32 09/16/16 09:00 84 78/32 09/16/16 08:00 97.0 84 17 78/32 97 Room Air 09/16/16 07:24 Nasal Cannula 09/16/16 07:23 97 Nasal Cannula 3.0 32 09/16/16 07:23 86 20 97 Nasal Cannula 3.0 32 09/16/16 07:23 Nasal Cannula 3.0 32 09/16/16 06:00 88 82/34 09/16/16 04:28 96.1 91 16 77/36 Nasal Cannula 2.0 09/16/16 03:47 Nasal Cannula 09/16/16 03:46 Nasal Cannula 09/15/16 23:41 96.1 83 20 87/34 99 Room Air 09/15/16 22:34 Nasal Cannula 09/15/16 22:34 Nasal Cannula 09/15/16 21:00 80 90/45 09/15/16 19:53 96.9 80 15 85/45 96 Nasal Cannula 2.5 09/15/16 19:49 Nasal Cannula 09/15/16 19:48 97 Nasal Cannula 3.0 32 09/15/16 19:48 85 20 97 Nasal Cannula 3.0 32 09/15/16 19:48 Nasal Cannula 3.0 32 09/15/16 15:38 97.6 82 21 99/52 96 Nasal Cannula 2.0 09/15/16 14:56 84 18 98 Nasal Cannula 2.0 28 09/15/16 14:46 81 18 96 Nasal Cannula 3.0 32 Height (Feet): 5 Height (Inches): 3.00 Weight (Pounds): 167 General Appearance: no acute distress HEENT: normocephalic, atraumatic, mucous membranes moist, PERRL, EOMI, pharynx normal, supple, no JVD, other - + icterus Respiratory/Chest: lungs clear, normal breath sounds, no respiratory distress, no accessory muscle use Cardiovascular: normal rate, regular rhythm Abdomen: soft, non tender, distended Genitourinary: other - no valdez Extremities: no cyanosis Skin: no rash 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 Note nonvisualization of the gallbladder described on recent ultrasound was probably due to gallbladder contraction Diverticulosis. No evidence of diverticulitis Extensive edema of the anterior abdominal wall soft tissues. This is a new finding Multiple bilateral rib fractures in various stages of healing, one or more appearing acute Cardiomegaly Incidental findings as noted, including L4 on L5 spondylolysis, osteoporosis, right hip degenerative changes, granulomatous calcification within the spleen, left renal lower pole cyst, prior hysterectomy, bibasilar pulmonary scarring/atelectasis This agrees with the preliminary interpretation provided overnight by [facility] service. The CT scanner at [facility] is accredited by the [employer] and the scans are performed using protocols designed to limit radiation e -- xposure to as low as reasonably achievable to attain images of sufficient Microbiology Date/Time Source Procedure Growth Status 09/11/16 10:00 Blood Blood Culture - Preliminary NO GROWTH AFTER 4 DAYS Resulted 09/09/16 04:00 Nasal Nares MRSA Culture - Final NO METHICILLIN RESISTANT STAPH AUREUS... Complete 09/12/16 12:30 Straight Cath Urine Culture - Preliminary Yeast Species Resulted 09/09/16 04:00 Rectum VRE Culture - Final Enterococcus Faecium - Vre Complete Laboratory Tests Test 09/16/16 04:50 White Blood Count 5.8 K/UL (4.8-10.8) Red Blood Count 2.81 M/UL (4.20-5.40) L Hemoglobin 9.5 G/DL (12.0-16.0) L Hematocrit 29.5 % (37.0-47.0) L Mean Corpuscular Volume 105 FL (80-99) H Mean Corpuscular Hemoglobin 33.8 PG (27.0-31.0) H Mean Corpuscular Hemoglobin Concent 32.2 G/DL (32.0-36.0) Red Cell Distribution Width 22.8 % (11.6-14.8) H Platelet Count 16 K/UL (150-450) L Mean Platelet Volume 8.4 FL (6.5-10.1) Neutrophils (%) (Auto) % (45.0-75.0) Lymphocytes (%) (Auto) % (20.0-45.0) Monocytes (%) (Auto) % (1.0-10.0) Eosinophils (%) (Auto) % (0.0-3.0) Basophils (%) (Auto) % (0.0-2.0) Differential Total Cells Counted 100 Neutrophils % (Manual) 83 % (45-75) H Lymphocytes % (Manual) 7 % (20-45) L Monocytes % (Manual) 5 % (1-10) Eosinophils % (Manual) 3 % (0-3) Basophils % (Manual) 2 % (0-2) Band Neutrophils 0 % (0-8) Platelet Estimate Decreased L Platelet Morphology Normal Hypochromasia 2+ Anisocytosis 3+ Macrocytosis 1+ Prothrombin Time 22.7 SEC (9.30-11.50) H Prothromb Time International Ratio 2.2 (0.9-1.1) H Sodium Level 131 mEQ/L (135-145) L Potassium Level 5.3 mEQ/L (3.4-4.9) H Chloride Level 97 mEQ/L (98-107) L Carbon Dioxide Level 14 mEQ/L (20-30) L Anion Gap 20 (5-15) H Blood Urea Nitrogen 69 mg/dL (7-23) H Creatinine 4.6 mg/dL (0.5-0.9) H Estimat Glomerular Filtration Rate mL/min (>60) Glucose Level 54 mg/dL (74-106) L Uric Acid 9.3 mg/dL (3.0-7.5) H Calcium Level 7.5 mg/dL (8.6-10.2) L Total Bilirubin 13.2 mg/dL (0.0-1.2) H Direct Bilirubin 8.1 mg/dL (0.1-0.3) H Aspartate Amino Transf (AST/SGOT) 74 U/L (5-40) H Alanine Aminotransferase (ALT/SGPT) 42 U/L (3-33) H Alkaline Phosphatase 206 U/L (35-104) H Ammonia 30 umol/L (11-51) Total Protein 4.5 g/dL (6.6-8.7) L Albumin 2.2 g/dL (3.5-5.2) L Globulin 2.3 g/dL Albumin/Globulin Ratio 0.9 (1.0-2.7) L Current Medications Medications (Trade) Dose Ordered Sig/Raman Route PRN Reason Start Time Stop Time Status Last Admin Dose Admin Acetaminophen (Tylenol) 650 mg Q4H PRN ORAL Mild Pain/Temp > 100.5 09/11/16 21:45 10/11/16 21:44 Albumin Human (Albumisol) 100 ml @ 0 mls/hr PRN PRN IV LOW BP DURING DIALYSIS 09/14/16 15:00 10/14/16 14:59 Albuterol Sulfate 2.5 mg 2.5 mg Q4HRT HHN 09/14/16 15:00 09/19/16 14:59 09/16/16 10:42 Ceftriaxone Sodium/Dextrose (Rocephin/D5W) 55 ml @ 110 mls/hr Q24H IVPB 09/15/16 09:00 09/18/16 23:59 09/16/16 09:48 Lactulose (Cephulac) 10 gm TID ORAL 09/13/16 13:00 10/13/16 12:59 09/16/16 12:26 Metoprolol Tartrate (Lopressor) 12.5 mg Q12HR ORAL 09/11/16 21:00 10/11/16 20:59 Metronidazole (Flagyl) 500 mg Q12HR ORAL 09/15/16 21:00 09/22/16 20:59 09/16/16 09:48 Midodrine (Pro-Amatine) 10 mg THREE TIMES A DAY ORAL 09/12/16 09:00 10/12/16 08:59 09/16/16 12:25 Multivitamins (Multivitamins) 1 tab DAILY ORAL 09/12/16 09:00 10/12/16 08:59 09/16/16 09:48 Octreotide Acetate 100 mcg 100 mcg Q6HR IV 09/15/16 06:00 10/15/16 05:59 09/16/16 12:25 Ondansetron HCl (Zofran) 4 mg Q4H PRN IVP Nausea & Vomiting 09/11/16 21:45 10/11/16 21:44 09/15/16 21:47 Pantoprazole (Protonix) 40 mg BID ORAL 09/12/16 09:00 10/12/16 08:59 09/16/16 09:48 Rifaximin (Xifaxan) 550 mg EVERY 12 HOURS ORAL 09/11/16 21:00 09/18/16 20:59 09/16/16 09:48 Sucralfate (Carafate) 1 gm FOUR TIMES A DAY ORAL 09/13/16 13:00 10/13/16 12:59 09/16/16 12:25 LESLEY KIM September 16, 2016 13:09
[2016-09-16] MEDS ORDERED: cefTRIAXone 1 GM in D5W 50 ML IVPB SCH (13:15)
--- NOTE | 2016-09-16 13:31 | Wound Care Consultation ---
Wound Assessment Wound Assessment #1: Wound Present on Admission: No New Wound: Yes Status Change of Wound: No Wound Location Body Site Modif: right Wound Location Body Site: buttocks Wound Type: blister - open Silverio Test: Does not Silverio Pressure Ulcer Stage: II Blisters: Denuded Blister Wound Thickness: Partial Thickness Wound Length: 0.5 Wound Width: 0.5 Wound Depth: 0.1 Percent of Wound Blessing/Red: 100 Wound Drainage Description: Serosanguineous Wound Drainage Amount: Scant Wound Drainage Odor: None/Absent Tissue Surrounding Wound: Intact Wound General Appearance: Reddened Wound Assessment #2: Wound Number: #2 Wound Present on Admission: Yes New Wound: No Status Change of Wound: No Wound Location Body Site: perineal area Wound Type: chemical burn Silverio Test: Does not Silverio Percent of Wound Blessing/Red: 100 Wound Drainage Amount: None Wound Drainage Odor: None/Absent Tissue Surrounding Wound: Erythemic Wound General Appearance: Reddened Wound Comment #1 Right buttock stage II denuded blister #2 Perineal chemical burn Recommendation -Right buttock denuded blister Cleanse with saline, pat dry, apply Triad cream, cover with bordered gauze daily and PRN soiled/dislodged -Local wound care per protocol for chemical burn on perineal area with skin barrier cream -Turn and reposition -Keep clean and dry -Optimize nutrition -Heel protector on both heels -Offload both heels -Assess and f/u accordingly for any changes DEANDRE HUFF RN September 16, 2016 13:30
--- NOTE | 2016-09-16 14:32 | General Progress Note ---
Assessment/Plan Problem List: (1) Heme + stool ICD Codes: R19.5 - Other fecal abnormalities SNOMED: 15165003, 846475716 (2) Hypotension ICD Codes: I95.9 - Hypotension SNOMED: 73266513 (3) CRISTAL (acute kidney injury) ICD Codes: N17.9 - Acute kidney failure, unspecified SNOMED: 98276423 (4) Altered mental status ICD Codes: R41.82 - Altered mental status, unspecified SNOMED: 000257675 (5) UTI (lower urinary tract infection) ICD Codes: N39.0 - Urinary tract infection, site not specified SNOMED: 9866997 (6) Hepatic encephalopathy ICD Codes: K72.90 - Hepatic encephalopathy SNOMED: 90194605 (7) Cirrhosis ICD Codes: K74.60 - Cirrhosis SNOMED: 15248703 (8) Severe sepsis ICD Codes: A41.9 - Sepsis, unspecified organism; R65.20 - Severe sepsis without septic shock SNOMED: 63930162 (9) Anemia ICD Codes: D64.9 - Anemia, unspecified SNOMED: 689209119 Qualifiers: Qualified Codes: D64.9 - Anemia, unspecified (10) Thrombocytopenia ICD Codes: D69.6 - Thrombocytopenia SNOMED: 939530300 (11) Klebsiella sepsis ICD Codes: A41.4 - Sepsis due to anaerobes SNOMED: 845089855, 826072095 (12) Hepatorenal syndrome ICD Codes: K76.7 - Hepatorenal syndrome SNOMED: 41003536 (13) Pyelonephritis ICD Codes: N12 - Tubulo-interstitial nephritis, not specified as acute or chronic SNOMED: 80258827 (14) Asthma ICD Codes: J45.909 - Unspecified asthma, uncomplicated SNOMED: 218381068 (15) Thrombocytopenia ICD Codes: D69.6 - Thrombocytopenia, unspecified SNOMED: 039502203 (16) CHF (congestive heart failure) ICD Codes: I50.9 - Heart failure, unspecified SNOMED: 90625611 Assessment/Plan klebsiella sepsis, ID seeing, poor prognosis with cirrhosis d/w daughter, cristal hydrate cautiously, elevated troponin, Cardiology eval appreciated, picc placed remains high risk, rising creatinine, try octreotide and spa for hrs, gi bleed slow, agrees to transfuse 5/7 , bronchospasm, start hhn, check cxr, still no improvement creatinine, platelets lower, high risk, family aware family meeting with son and his --to dc with hospice, expected Subjective ROS Limited/Unobtainable: Yes Allergies: Coded Allergies: PENICILLINS (Unverified Allergy, Unknown, 07/09/16) Objective Last 24 Hour Vital Signs Date Time Temp Pulse Resp B/P Pulse Ox O2 Delivery O2 Flow Rate FiO2 09/16/16 12:00 97.0 85 20 74/36 98 Nasal Cannula 3.0 09/16/16 10:57 88 20 99 Nasal Cannula 3.0 32 09/16/16 10:40 86 22 97 Nasal Cannula 3.0 32 09/16/16 09:00 84 78/32 09/16/16 08:00 97.0 84 17 7832 97 Room Air 09/16/16 07:24 Nasal Cannula 09/16/16 07:23 97 Nasal Cannula 3.0 32 09/16/16 07:23 86 20 97 Nasal Cannula 3.0 32 09/16/16 07:23 Nasal Cannula 3.0 32 09/16/16 06:00 88 82/34 09/16/16 04:28 96.1 91 16 77/36 Nasal Cannula 2.0 09/16/16 03:47 Nasal Cannula 09/16/16 03:46 Nasal Cannula 09/15/16 23:41 96.1 83 20 87/34 99 Room Air 09/15/16 22:34 Nasal Cannula 09/15/16 22:34 Nasal Cannula 09/15/16 21:00 80 90/45 09/15/16 19:53 96.9 80 15 85/45 96 Nasal Cannula 2.5 09/15/16 19:49 Nasal Cannula 09/15/16 19:48 97 Nasal Cannula 3.0 32 09/15/16 19:48 85 20 97 Nasal Cannula 3.0 32 09/15/16 19:48 Nasal Cannula 3.0 32 09/15/16 15:38 97.6 82 21 99/52 96 Nasal Cannula 2.0 09/15/16 14:56 84 18 98 Nasal Cannula 2.0 28 09/15/16 14:46 81 18 96 Nasal Cannula 3.0 32 Bad tableLaboratory Tests 09/16/16 04:50: White Blood Count 5.8, Red Blood Count 2.81L, Hemoglobin 9.5L, Hematocrit 29.5L , Mean Corpuscular Volume 105H, Mean Corpuscular Hemoglobin 33.8H, Mean Corpuscular Hemoglobin Concent 32.2, Red Cell Distribution Width 22.8H, Platelet Count 16L, Mean Platelet Volume 8.4, Neutrophils (%) (Auto) , Lymphocytes (%) (Auto) , Monocytes (%) (Auto) , Eosinophils (%) (Auto) , Basophils (%) (Auto) , Differential Total Cells Counted 100, Neutrophils % ( Manual) 83H, Lymphocytes % (Manual) 7L, Monocytes % (Manual) 5, Eosinophils % ( Manual) 3, Basophils % (Manual) 2, Band Neutrophils 0, Platelet Estimate DecreasedL, Platelet Morphology Normal, Hypochromasia 2+, Anisocytosis 3+, Macrocytosis 1+, Prothrombin Time 22.7H, Prothromb Time International Ratio 2.2H , Sodium Level 131L, Potassium Level 5.3H, Chloride Level 97L, Carbon Dioxide Level 14L, Anion Gap 20H, Blood Urea Nitrogen 69H, Creatinine 4.6H, Estimat Glomerular Filtration Rate , Glucose Level 54L, Uric Acid 9.3H, Calcium Level 7.5L, Total Bilirubin 13.2H, Direct Bilirubin 8.1H, Aspartate Amino Transf (AST/ SGOT) 74H, Alanine Aminotransferase (ALT/SGPT) 42H, Alkaline Phosphatase 206H, Ammonia 30, Total Protein 4.5L, Albumin 2.2L, Globulin 2.3, Albumin/Globulin Ratio 0.9L Height (Feet): 5 Height (Inches): 3.00 Weight (Pounds): 167 General Appearance: lethargic EENT: PERRL/EOMI Neck: non-tender Cardiovascular: normal rate Respiratory/Chest: lungs clear, normal breath sounds Abdomen: distended Edema: moderate edema Neurologic: other - lethargic ROBERTA NORWOOD September 16, 2016 14:32
[2016-09-16 16:00] VITALS: BP 77/45
[2016-09-16] MEDS ORDERED: metroNIDAZOLE 500mg 100 ML IVPB SCH (21:00)
--- NOTE | 2016-09-16 23:29 | Discharge Summary ---
DATE OF ADMISSION: 09/09/2016 DATE OF DISCHARGE: 09/16/2016 PERTINENT HISTORY: The patient is an 86-year-old lady with a history of cryptogenic cirrhosis, presents with nausea, vomiting, and fever of 101.1 degrees. PERTINENT PHYSICAL FINDINGS: See the dictated History and Physical for details. HEENT: Sclerae icteric. Oral mucosa slightly dry. NECK: No adenopathy. LUNGS: Clear. HEART: Regular rhythm. ABDOMEN: Soft. Liver and spleen not palpable. EXTREMITIES: No edema. NEUROLOGIC: She is alert and responsive. No focal weakness. No asterixis. COURSE IN THE HOSPITAL: The patient was found to have urinary tract infection and was given empiric antibiotics and subsequently seen by Dr. Winter, who adjusted antibiotic therapy. She had evidence of cirrhosis with anemia, thrombocytopenia, and elevated bilirubin, which total was 9.4, and on admission, she also had elevated troponin consistent with acute myocardial infarction. She had low normal blood pressure. She developed acute kidney injury with her creatinine of 2.5 on admission, went to 4.6. Her bilirubin went up to 13.2 and her platelet count fell to 16,000. She developed asthma, bronchospasm, pleural effusions, and congestive heart failure. Multiple conversations were done with the family and on the day of discharge, had a family meeting with her son and the son's and all agreed that the appropriate care for this patient would be for hospice, but no dialysis would be done and no further transfusions or invasive monitoring and she was discharged to an ECF in poor condition with expected in the near future. FINAL DIAGNOSES: 1. Sepsis with Klebsiella pneumoniae. 2. Urinary tract infection and pyelonephritis with Klebsiella pneumoniae. 3. Acute myocardial infarction. 4. Cirrhosis, cryptogenic. 5. 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 6. Severe thrombocytopenia secondary to sepsis and cirrhosis. 7. Acute kidney injury from hepatorenal syndrome and acute tubular necrosis due to Klebsiella pneumoniae septicemia. 8. History of hepatic encephalopathy. 9. History of ascites. 10. Heme-positive stools. 11. Congestive heart failure, acute upon chronic with diastolic dysfunction. 12. Asthma. 13. Pleural effusions. 14. Atelectasis. DISCHARGE DISPOSITION: To ECF with comfort measures and hospice as discussed with the family. Code status is DNR. Awais Edward M.D. DR: SANJAY JOB#: [id number] CC:
== END 2016-09-16 18:25 | DRG 871 ==
LOC: EDBD 00:37 → EMR 01:15 → 2E 02:16 → EDBEDREQ 02:17 → 4E 09-11 18:17
PROC: 30233N1 Transfusion of Nonautologous Red Blood Cells into Peripheral Vein, Percutaneous Approach (ICD-10-PCS; principal; 2016-09-09)
PROC: 02HV33Z Insertion of Infusion Device into Superior Vena Cava, Percutaneous Approach (ICD-10-PCS; 2016-09-11)
PROC: B518ZZA Fluoroscopy of Superior Vena Cava, Guidance (ICD-10-PCS; 2016-09-11)
DX: A41.50 Gram-negative sepsis, unspecified (principal); R65.21 Severe sepsis with septic shock; I21.3 ST elevation (STEMI) myocardial infarction of unspecified site; K76.7 Hepatorenal syndrome; E43 Unspecified severe protein-calorie malnutrition; E87.2 Acidosis; I50.33 Acute on chronic diastolic (congestive) heart failure; D69.6 Thrombocytopenia, unspecified; D68.9 Coagulation defect, unspecified; N17.9 Acute kidney failure, unspecified; E87.1 Hypo-osmolality and hyponatremia; K92.2 Gastrointestinal hemorrhage, unspecified; I13.0 Hypertensive heart and chronic kidney disease with heart failure and stage 1 through stage 4 chronic kidney disease, or unspecified chronic kidney disease; N18.4 Chronic kidney disease, stage 4 (severe); B37.49 Other urogenital candidiasis; J98.11 Atelectasis; Z66 Do not resuscitate; A41.59 Other Gram-negative sepsis; E87.5 Hyperkalemia; Z68.29 Body mass index [BMI] 29.0-29.9, adult; Z88.0 Allergy status to penicillin; E86.0 Dehydration; K70.31 Alcoholic cirrhosis of liver with ascites; D64.9 Anemia, unspecified; J45.909 Unspecified asthma, uncomplicated; E78.5 Hyperlipidemia, unspecified; I44.7 Left bundle-branch block, unspecified; K72.90 Hepatic failure, unspecified without coma; E87.8 Other disorders of electrolyte and fluid balance, not elsewhere classified
CPT/HCPCS: 36415; 36569; 71010; 74176; 76937; 80048; 80053; 81001; 81003; 82140; 82248; 82270; 82550; 82553; 82570; 83605; 83735; 83880; 84300; 84484; 84550; 85007; 85025; 85610; 85730; 86850; 86900; 86901; 86920; 87040; 87081; 87086; 87181; 93005; 93306; 94640; 94664; 94760; J2405